=== PATIENT | female | born 1950 | race Caucasian/White ===

== ENCOUNTER → 2020-01-29 12:43 | Outpatient (CLI) | payer MEDICARE, OTHER, SELFPAY ==
--- NOTE | ~2020-01-29 | MM_ITS ---
EXAMINATION: MM screening rox RT w andrew HISTORY: Screening TECHNIQUE: Craniocaudal and mediolateral oblique 3-D tomosynthesis images were obtained and synthetic 2-D images were generated. CAD analysis was submitted and interpreted. COMPARISON: Comparison to multiple prior studies sequentially, with oldest reviewed study dated 10/2009. BREAST PARENCHYMAL COMPOSITION: There are scattered areas of fibroglandular density. FINDINGS: There is no evidence of suspicious mass, calcification, or architectural distortion to sugg est malignancy in the right breast. There has been no suspicious interval change. IMPRESSION: 1. No mammographic evidence of malignancy. 2. Recommend routine screening mammography in one year. BI-RADS Category 1: Negative Reviewed, dictated and finalized at location A.
== END ==
PROVIDERS: PCP Physician Assistant; Visit Provider Physician Assistant
DX: Z12.31 Encounter for screening mammogram for malignant neoplasm of breast (principal); Z85.3 Personal history of malignant neoplasm of breast
CPT/HCPCS: 77063; 77067

== ENCOUNTER → 2021-11-08 09:10 | Outpatient (CLI) | payer MEDICARE, OTHER, SELFPAY ==
--- NOTE | ~2021-11-08 | MMUS_ITS ---
EXAMINATION: MM diagnostic rox RT w andrew, US breast RT limited HISTORY: Breast pain TECHNIQUE: Full field and spot ML, MLO and craniocaudal 3-D tomosynthesis images of the right breast were performed and synthetic 2-D images were generated. CAD analysis was submitted and interpreted. H igh resolution upper outer and lower-outer quadrant right breast ultrasound was performed. COMPARISON: 01/29/2020, 10/16/2017 right screening mammogram examinations 09/14/2016 diagnostic right mammogram and limited right breast ultrasound BREAST PARENCHYMAL COMPOSITION: There are scattered areas of fibroglandular density. FINDINGS: MAMMOGRAPHIC FINDINGS: No interval suspicious mass, architectural distortion, malignant calcification, skin thickening or re traction or significant new or developing density of the right breast is evident compared to prior ex aminations. ULTRASOUND: No suspicious mass or shadowing from a mass lesion is noted. There is some ill-defined shadowing rela margarita to scars in the lower outer quadrant. IMPRESSION: 1. No mammographic evidence of malignancy 2. Routine annual mammographic screening is recommended BI-RADS Category 2: Benign finding(s). Reviewed, dictated and finalized at location A. IMPRESSION: 1. No mammographic evidence of malignancy 2. Routine annual mammographic screening is recommended BI-RADS Category 2: Benign finding(s).
== END ==
PROVIDERS: PCP Physician Assistant; Visit Provider Family Medicine
DX: N64.4 Mastodynia (principal)
CPT/HCPCS: 76642; 77061; 77065; G0279

== ENCOUNTER 2022-04-20 12:38 | Outpatient (CLI) | payer MEDICARE, OTHER, SELFPAY ==
--- NOTE | ~2022-04-20 | XR_ITS ---
XR knee LT min 4V 04/20/2022 13:09 Indication: Left knee pain Procedure: 4 views left knee Comparison: 04/02/2014 Findings: There is tricompartment osteoarthritis of the left knee, severe in the medial compartment. No acute fracture or traumatic malalignment. No significant joint effusion. Impression: 1: Advanced tricompartment osteoarthritis of the left knee, most severe in the medial compartment. Reviewed, dictated and finalized at location A. Impression: 1: Advanced tricompartment osteoarthritis of the left knee, most severe in the medial compartment.
== END 2022-04-20 12:39 | disposition home or self-care (01) ==
LOC: ANHIMG 12:44
PROVIDERS: PCP Orthopaedic Surgery; Visit Provider Physician Assistant Surgical
DX: M17.12 Unilateral primary osteoarthritis, left knee (principal)
CPT/HCPCS: 73564

== ENCOUNTER 2022-06-02 16:33 | Outpatient (CLI) | payer MEDICARE, OTHER, SELFPAY ==
--- NOTE | ~2022-06-02 | XR_ITS ---
EXAMINATION: XR chest 2V DATE: 06/02/2022 16:54 INDICATION: Acute upper respiratory tract infection TECHNIQUE: PA and lateral views of the chest were obtained. COMPARISON: Chest radiograph dated 10/27/2010 FINDINGS: Unchanged calcified nodule at the left lower lung zone consistent with old granulomatous disease. Mil d perihilar bronchial wall thickening on the lateral projection. No focal airspace opacities, pulmona ry edema, pleural effusion or pneumothorax. The cardiomediastinal silhouette is normal. Chronic appea ring mild anterior wedging of a few mid to lower thoracic vertebral bodies. IMPRESSION: 1. Mild perihilar bronchial wall thickening without focal airspace opacities which could be due to br onchitis or reactive airway disease/asthma. Reviewed, dictated and finalized at location A. STANT PROFESSOR OF DIETETICS IMPRESSION: 1. Mild perihilar bronchial wall thickening without focal airspace opacities wh ich could be due to bronchitis or reactive airway disease/asthma.
== END 2022-06-02 16:34 | disposition home or self-care (01) ==
PROVIDERS: PCP Physician Assistant; Visit Provider Physician Assistant
DX: J06.9 Acute upper respiratory infection, unspecified (principal)
CPT/HCPCS: 71046

== ENCOUNTER 2022-06-06 14:16 | Emergency (ER) | payer MEDICARE, OTHER, SELFPAY ==
[2022-06-06] VITALS (15 sets, daily range): BP systolic 86–130; BP diastolic 46–101; PULSE 73–98; RESP 13–29; TEMP 36.8; O2SAT 94–100
--- NOTE | ~2022-06-06 | XR_ITS ---
XR chest 2V DATE: 06/06/2022 17:28 INDICATION: Cough, shortness of breath. Asthma exacerbation. History of hypertension, mitral valve ab normality. TECHNIQUE: AP and lateral views COMPARISON: 06/02/2022 PA and lateral chest FINDINGS: There is evidence of partial or complete left mastectomy. Status post left axillary node di ssection. Normal heart size. Aortic arch calcification. No hilar or mediastinal enlargement. No pulmonary infiltrate or consolidation, pleural effusion or pulmonary vascular congestion or pneumo thorax. There is degenerative spurring primarily of the lower thoracic spine. There is chronic mild anterior wedging of some thoracic vertebral bodies. No suspicious osteolytic or osteoblastic lesions are noted . IMPRESSION: Postoperative change of left breast and left axillary node dissection No active cardiopulmonary disease Aortic calcification Reviewed, dictated and finalized at location A. POT WORKER IMPRESSION: Postoperative change of left breast and left axillary node dissecti on No active cardiopulmonary disease Aortic calcification
--- NOTE | 2022-06-06 17:12 | ED.SOB ---
HPI - SOB/Dyspnea General Chief Complaint: Shortness of Breath/Dyspnea Stated Complaint: cough/recent covid dx 05/12 Time Seen by Provider: 06/06/22 16:58 History of Present Illness HPI Narrative: 72-year-old female history of asthma, hypertension, diabetes and breast cancer presents to the emergency room for evaluation of worsening shortness of breath. Patient states that she was recently diagnosed with COVID at the end of April, and has been experiencing a nonproductive cough associated with wheezing. Was seen at her PCPs office on Sunday, and was a started on Breo inhaler and 40 mg of p.o. prednisone. Was again seen in her primary's office today, and given a breathing treatment and was told that she might have asthma exacerbation. Patient recently purchased a nebulizer machine and use it once today. States that she is also taking [id number] Robitussin. Endorses a painful cough. Denies fever. Denies chest pain Related Data Home Medications Medication Instructions Recorded Confirmed cetirizine 10 mg capsule (Zyrtec) 10 mg PO BID 04/18/22 04/20/22 diclofenac sodium 75 mg 75 mg PO .one 04/18/22 04/20/22 tablet,delayed release exenatide microspheres 2 mg/0.65 mg subcut .1 weekly 04/18/22 04/20/22 mL subcutaneous pen injector (ByEditorially) glipizide 10 mg tablet 10 mg PO DAILY 04/18/22 04/20/22 levothyroxine 75 mcg tablet 75 mcg PO DAILY 04/18/22 04/20/22 lorazepam 0.5 mg tablet 0.5 mg PO BID PRN 04/18/22 04/20/22 metformin 500 mg/5 mL oral solution 500 mg PO DAILY 04/18/22 04/20/22 valsartan 40 mg tablet (Diovan) 40 mg PO DAILY 04/18/22 04/20/22 Allergies Allergy/AdvReac Type Severity Reaction Status Date / Time empagliflozin Allergy Mild Difficulty Verified 04/20/22 14:04 [From Jardiance] Swallowing fluticasone furoate Allergy Mild face Verified 04/20/22 14:04 [From Veramyst] swelling lisinopril Allergy Mild Cough Verified 04/20/22 14:04 sulfamethoxazole Allergy Mild Rash Verified 04/20/22 14:04 codeine Allergy Unknown HALLUCINATI Unverified 04/20/22 14:04 ONS erythromycin base Allergy Unknown CHEST PAIN. Unverified 04/20/22 14:04 Penicillins Allergy Unknown RASH Unverified 04/20/22 14:04 junivia Allergy Mild Difficulty Uncoded 04/20/22 14:04 Swallowing NKFA Allergy Unknown Unknown Uncoded 04/20/22 14:04 Review of Systems Review of Systems: CONSTITUTIONAL: Denies fever, chills, or sweats. EYES: Denies visual changes, redness, or discharge. ENT: Reports rhinorrhea, and congestion CARDIOVASCULAR: Denies chest pain, palpitations, or edema. RESPIRATORY: Reports cough and wheezing GASTROINTESTINAL: Denies abdominal pain, nausea, vomiting, or diarrhea. GENITOURINARY: Denies dysuria or hematuria. SKIN: Denies rash or itching. MUSCULOSKELETAL: Denies back pain, joint pain, or myalgia. NEUROLOGIC: Denies headache, numbness, dizziness, or weakness. PSYCHIATRIC: Denies anxiety or depression. [facility] Past Medical History Medical History Bleeds easily Breast cancer Diabetes Eczema Fatigue History of stress test Hypertension Lymphedema due to chronic inflammation Mitral valve disorder Neck mass Primary osteoarthritis of left knee Shortness of breath Surgical History Surgical History History of mastectomy History of partial hysterectomy History of tooth extraction Family History Family History Father Cancer Mother Heart disease Sibling Heart disease Sibling Breast cancer Heart disease Social History Social History Smoking status: Never smoker Alcohol intake: never Substance use: never Lack of Transportation: No Lack of Food: Never True Current Housing: I Have Housing Concerned About Future Housing: No Difficulty Paying Gas/Electric Bills: No Di
--- NOTE | 2022-06-06 17:14 | ECG_ITS ---
Measurements Intervals [place] Rate: 82 P: 44 [place]: 119 QRS: 19 QRSD: 101 T: 44 QT: 398 QTc: 466 Interpretive Statements SINUS RHYTHM WITH SHORT [place] INTERVAL WITH FREQUENT VENTRICULAR PREMATURE COMPLEXES NONSPECIFIC T-WAVE ABNORMALITY ABNORMAL RHYTHM ECG NO PREVIOUS ECG AVAILABLE FOR COMPARISON Electronically Signed On 06-07-2022 17:48:35 DELIVERY ENGINEER by Darrick Doherty M.D.
[2022-06-06 18:22] LABS: Basophils Absolute Auto 0.1 K/mm3 (0.0-0.1); Basophils Percent Auto 0.4 % (0.2-1.2); Eosinophils Absolute Auto 0.2 K/mm3 (0-0.3); Eosinophils Percent Auto 1.2 % (0-4.4); Hematocrit 42.8 % (37.0-47.0); Hemoglobin 13.7 g/dL (12.0-15.0); Immature Granulocyte Percent A 1.1 % (0-0.5); Lymphocytes Absolute Auto 3.46 K/mm3 (0.9-3.2); Lymphocytes Percent Auto 19.2 % (18.3-44.2); Mean Corpuscular Hemoglobin 31.2 pg (26-34); Mean Corpuscular Volume 97.5 fl (80-100); Mean Platelet Volume 10.5 fl (7.4-10.4); Monocytes Absolute Auto 1.3 K/mm3 (0.1-0.6); Monocytes Percent Auto 7.1 % (2.6-8.5); Neutrophils Absolute Auto 12.8 K/mm3 (1.3-6.7); Platelet Count Result 345 k/mm3 (150-375); Red Blood Count 4.39 M/mm3 (4.2-5.4); Red Cell Distribution Width 12.8 % (11.5-14.5)
[2022-06-06] MEDS: methylPREDNISolone SOD SUCC 125 MG VIAL IV PUSH (18:24)
[2022-06-06 18:29] LABS: Lactic Acid Reflex 2.1 mmol/L (0.7-2.0)
[2022-06-06 18:36] LABS: Influenza A QL RT-PCR Negative (Negative); Influenza B QL RT-PCR Negative (Negative); RSV RNA, RT-PCR Positive (Negative); SARS-CoV-2 RNA PCR Negative
[2022-06-06 18:43] LABS: Anion Gap 11 mmol/L (8-16); Blood Urea Nitrogen 33 mg/dL (7-17); Calcium 9.1 mg/dL (8.4-10.2); Carbon Dioxide 25 mmol/L (22-30); Chloride 98 mmol/L (98-107); Estimated CRCL calculation 38 ml/min; Estimated Glomerular Filt Rate 40; Glucose 136 mg/dL (65-110); Potassium 3.6 mmol/L (3.4-5.0); Sodium 134 mmol/L (137-145)
[2022-06-06] MEDS: SODIUM CHLORIDE 0.9% IV 1,000 ML 999 ML IV CONT (18:51)
[2022-06-06 18:55] LABS: Troponin I < 0.012 ng/mL (0.000-0.034)
[2022-06-06] MEDS: MAGNESIUM SULF 2 GM/WATER 50ML 2 GM/50 ML BAG IVPB (19:30)
[2022-06-06] MEDS: ALBUTEROL SULFATE NEB 2.5 MG/3 ML INH 5 MG INHALATION ×2 (19:35→19:44)
[2022-06-06] MEDS: ALBUTEROL SULFATE NEB 2.5 MG/3 ML INH 10 MG INHALATION (19:54)
[2022-06-06] MEDS: IPRATROPIUM BR 0.02% INH SOLN 0.5 MG/2.5 ML VIAL 1 MG INHALATION (19:54)
[2022-06-06 21:18] LABS: Reflex Lactic Acid Yes or No Add Lactic
== END 2022-06-06 21:15 | disposition home or self-care (01) ==
PROVIDERS: Emergency Provider Nurse Practitioner Family; PCP Physician Assistant
DX: J21.0 Acute bronchiolitis due to respiratory syncytial virus (principal); J45.901 Unspecified asthma with (acute) exacerbation; Z20.822 Contact with and (suspected) exposure to COVID-19; I10 Essential (primary) hypertension; E11.9 Type 2 diabetes mellitus without complications; M17.12 Unilateral primary osteoarthritis, left knee; I89.0 Lymphedema, not elsewhere classified; Z86.16 Personal history of COVID-19; Z85.3 Personal history of malignant neoplasm of breast; Z90.10 Acquired absence of unspecified breast and nipple; Z90.711 Acquired absence of uterus with remaining cervical stump; Z79.84 Long term (current) use of oral hypoglycemic drugs; I49.3 Ventricular premature depolarization; R94.31 Abnormal electrocardiogram [ECG] [EKG]; I70.0 Atherosclerosis of aorta
CPT/HCPCS: 36415; 71046; 80048; 83605; 84484; 85025; 87637; 93005; 94640; 96361; 96365; 96375; 99284; J2930; J3475; J7030

== ENCOUNTER 2022-07-25 17:38 | Outpatient (CLI) | payer MEDICARE, OTHER, SELFPAY ==
--- NOTE | ~2022-07-25 | XR_ITS ---
EXAMINATION: XR chest 2V DATE: 07/25/2022 17:57 INDICATION: Cough and wheezing post COVID infection 3 months prior. TECHNIQUE: PA and lateral views of the chest were obtained. COMPARISON: Chest radiograph dated 06/06/22 FINDINGS: Small calcified nodules at the left apex and left lung base and calcified left hilar lymph nodes cons istent with old granulomatous disease. Postoperative change of prior left mastectomy and left axillar y lymph node dissection with breast implant and multiple surgical clips at the left axilla. The cardi omediastinal silhouette is normal. Mild thoracic spondylosis with mild anterior wedging of a few lowe r thoracic vertebral bodies. IMPRESSION: 1. No acute cardiopulmonary disease. Reviewed, dictated and finalized at location A. ERTY COORDINATOR
== END 2022-07-25 17:39 | disposition home or self-care (01) ==
PROVIDERS: PCP Physician Assistant; Visit Provider Physician Assistant
DX: R06.2 Wheezing (principal)
CPT/HCPCS: 71046

== ENCOUNTER 2022-08-22 10:39 | Inpatient (IN) | payer MEDICARE, OTHER, SELFPAY ==
[2022-08-22] VITALS (22 sets, daily range): BP systolic 135–147; BP diastolic 59–110; PULSE 70–100; RESP 15–23; TEMP 35.9–36.3; O2SAT 92–100; BMI 34.5
--- NOTE | ~2022-08-22 | CT_ITS ---
EXAMINATION: CTA chest PE protocol DATE: 08/22/2022 14:21 INDICATION: Shortness of breath. Elevated d-dimer. TECHNIQUE: Computed tomography angiography (CTA) of the chest was performed with 200 mL Omnipaque-350 intravenous contrast timed to evaluate the pulmonary arteries. Coronal maximum intensity projection 3D-reconstructions were created by the technologist. Automated exposure control and iterative reconst ruction technique were employed. Exam dose: 748.77 mGy-cm total exam DLP. COMPARISON: 08/22/2022 PA and lateral chest FINDINGS: There is diagnostic contrast enhancement of the pulmonary arteries on the second set of mo ges obtained after reinjection. No pulmonary embolism is detected. No thoracic aortic aneurysm or dissection. Normal heart size. No pericardial or pleural effusion. Calcified left upper and lower lobe and middle lobe pulmonary granulomas and calcified left hilar nod es are noted. There is nonspecific mild hilar and mediastinal lymph node prominence. Small posterior left upper posterior pleural calcified plaque. Status post left mastectomy with implant reconstruction. Status post left axillary lymph node dissect ion. There are couple of small calcifications along the posterior wall of the gallbladder which may be gal lbladder wall calcification or small gallstones. No gallbladder wall thickening or pericholecystic fl uid or fat stranding. Diffuse hepatic steatosis. Normal morphology of the adrenal glands. Mild anterior wedging and loss of height of T7-T10, likely chronic. Degenerative spurring of the lowe r thoracic spine. IMPRESSION: No evidence of pulmonary embolism Status post left mastectomy with implant reconstruction; status post left axillary node dissection Hepatic steatosis Posterior gallbladder wall calcification versus small gallstones Reviewed, dictated and finalized at Location A. Reviewed, dictated and finalized at location L. MAIN FITTER IMPRESSION: No evidence of pulmonary embolism Status post left mastectomy with implant reconstruction; status post left axill nadia node dissection Hepatic steatosis Posterior gallbladder wall calcification versus small gallstones
--- NOTE | ~2022-08-22 | US_ITS ---
EXAMINATION: US venous doppler [facility] DATE: 08/22/2022 12:36 INDICATION: Lower limb edema. TECHNIQUE: Grayscale ultrasound images without and with compression and Doppler ultrasound images of the bilateral lower extremity veins were obtained. COMPARISON: None. FINDINGS: The visualized portions of right common femoral vein, profunda (deep) femoral vein, femoral vein, pop liteal vein, peroneal veins, posterior tibial veins, and greater saphenous vein outflow are patent. The visualized portions of left common femoral vein, profunda femoral vein, femoral vein, popliteal v ein, peroneal veins, posterior tibial veins, and greater saphenous vein outflow are patent. IMPRESSION: 1. No deep venous thrombosis. Reviewed, dictated and finalized at location A. IGN EXCHANGE DEALER
--- NOTE | ~2022-08-22 | XR_ITS ---
XR chest 2V DATE: 08/22/2022 11:07 INDICATION: Shortness of breath since April 2022. Cough. TECHNIQUE: PA and lateral views COMPARISON: July 25, 2022 PA and lateral chest FINDINGS: Postoperative change from left mastectomy and left axillary node dissection. No pulmonary infiltrate or consolidation, pleural effusion or pulmonary vascular congestion or pneumo thorax is detected. Normal heart size. Aortic arch calcification. Osteopenia. There is degenerative spurring of the thoracic spine. No suspicious osteolytic or osteobl astic lesions are noted. IMPRESSION: Status post left mastectomy and left axillary node dissection No active cardiopulmonary disease Aortic atherosclerosis Osteopenia. Reviewed, dictated and finalized at location L. BILITATION INSPECTOR
--- NOTE | 2022-08-22 10:46 | ECG_ITS ---
Measurements Intervals [place] Rate: 90 P: 50 [place]: 129 QRS: 43 QRSD: 99 T: 55 QT: 383 QTc: 470 Interpretive Statements SINUS RHYTHM BASELINE ARTIFACT- I, II, III, AVR, AVL, AVF, V1-V6 NORMAL ECG COMPARED TO ECG 06/06/2022 17:52:23 NO SIGNIFICANT CHANGES Electronically Signed On 08-22-2022 13:14:04 RESIDENTIAL CONSTRUCTION INSTRUCTOR by Emery Carr D.O.
[2022-08-22 11:04] LABS: Basophils Absolute Auto 0.1 K/mm3 (0.0-0.1); Basophils Percent Auto 0.8 % (0.2-1.2); Eosinophils Absolute Auto 0.9 K/mm3 (0-0.3); Eosinophils Percent Auto 8.6 % (0-4.4); Hematocrit 37.9 % (37.0-47.0); Hemoglobin 11.9 g/dL (12.0-15.0); Immature Granulocyte Absolute 0.06 K/mm3 (0.00-0.031); Immature Granulocyte Percent A 0.6 % (0-0.5); Lymphocytes Absolute Auto 1.64 K/mm3 (0.9-3.2); Lymphocytes Percent Auto 15.4 % (18.3-44.2); Mean Corpuscular HGB Conc 31.4 g/dl (32-36); Mean Corpuscular Hemoglobin 31.6 pg (26-34); Mean Corpuscular Volume 100.5 fl (80-100); Monocytes Absolute Auto 0.8 K/mm3 (0.1-0.6); Monocytes Percent Auto 7.3 % (2.6-8.5); Neutrophils Absolute Auto 7.2 K/mm3 (1.3-6.7); Neutrophils Percent Auto 67.3 % (45.5-73.1); Platelet Count Result 296 k/mm3 (150-375); Red Blood Count 3.77 M/mm3 (4.2-5.4); Red Cell Distribution Width 13.1 % (11.5-14.5); White Blood Count 10.7 K/mm3 (4.5-10.0)
[2022-08-22 11:11] LABS: Alanine Aminotransferase 24 U/L (6-35); Albumin Level 4.1 g/dL (3.5-5.1); Alkaline Phosphatase 85 U/L (38-126); Anion Gap 7 mmol/L (8-16); Aspartate Amino Transferase 22 U/L (14-36); Bilirubin,Total 0.6 mg/dL (0.2-1.3); Blood Urea Nitrogen 16 mg/dL (7-17); Calcium 9.1 mg/dL (8.4-10.2); Carbon Dioxide 24 mmol/L (22-30); Chloride 102 mmol/L (98-107); Estimated CRCL calculation 57 ml/min; Estimated Glomerular Filt Rate > 60; Glucose 270 mg/dL (65-110); Potassium 4.3 mmol/L (3.4-5.0); Sodium 133 mmol/L (137-145)
[2022-08-22 11:48] LABS: NT Pro B Type Natriuretic Pept 170 pg/mL (19.9-100)
[2022-08-22 11:50] LABS: Prothrombin Time 12.5 Seconds (11.1-14.7)
[2022-08-22 11:55] LABS: D Dimer 0.86 ug/mL (<0.48)
--- NOTE | 2022-08-22 12:46 | ED.SOB ---
HPI - SOB/Dyspnea General Chief Complaint: Shortness of Breath/Dyspnea <Ines Wakefield PA-C - Last Filed: 08/22/22 15:25> Stated Complaint: SOB <KONSTANTIN Pradhan Last Filed: 08/22/22 15:25> Time Seen by Provider: 08/22/22 11:15 <KONSTANTIN Pradhan Last Filed: 08/22/22 15:25> Source: patient <KONSTANTIN Pradhan Last Filed: 08/22/22 15:25> Mode of arrival: ambulatory <KONSTANTIN Pradhan Last Filed: 08/22/22 15:25> Limitations: no limitations <KONSTANTIN Pradhan Last Filed: 08/22/22 15:25> History of Present Illness HPI Narrative: This is a 72 year old female that presents to the ER for shortness of breath and wheezing. Ongoing for several months. Reports since she had RSV and COVID at the end of last year she has been having difficulty with wheezing. <KONSTANTIN Pradhan Last Filed: 08/22/22 15:25> Related Data Home Medications: Home Medications Medication Instructions Recorded Confirmed acetaminophen 500 mg capsule 1,000 mg PO BID PRN 07/25/22 08/22/22 clobetasol 0.05 % topical ointment 1 applic topical BID 07/25/22 08/22/22 lorazepam 0.5 mg tablet 0.5 mg PO Q8H PRN 07/25/22 08/22/22 metformin 500 mg tablet,extended 500 mg PO BID 07/25/22 08/22/22 release 24 hr tacrolimus 0.1 % topical ointment 1 applic topical DAILY 07/25/22 08/22/22 (Protopic) <KONSTANTIN Pradhan Last Filed: 08/22/22 15:25> Allergies/Adverse Reactions: Allergies Allergy/AdvReac Type Severity Reaction Status Date / Time empagliflozin Allergy Mild Difficulty Verified 08/22/22 10:12 [From Jardiance] Swallowing fluticasone furoate Allergy Mild face Verified 08/22/22 10:12 [From Veramyst] swelling lisinopril Allergy Mild Cough Verified 08/22/22 10:12 sitagliptin [From Januvia] Allergy Mild Difficulty Verified 08/22/22 14:57 Swallowing sulfamethoxazole Allergy Mild Rash Verified 08/22/22 10:12 codeine Allergy Unknown HALLUCINATI Verified 08/22/22 10:12 ONS erythromycin base Allergy Unknown CHEST PAIN. Verified 08/22/22 10:12 Penicillins Allergy Unknown RASH Verified 08/22/22 10:12 NKFA Allergy Unknown Unknown Uncoded 08/22/22 10:12 <Ines Wakefield PA-C - Last Filed: 08/22/22 15:25> [facility] Past Medical History Medical History: Medical History Allergic rhinitis Anxiety Asthma Bilateral knee pain Depression Diabetes Eczema Hyperlipidemia Hypertension Hypothyroidism Lymphedema due to chronic inflammation Mitral valve disorder Overactive bladder <KONSTANTIN Pradhan Last Filed: 08/22/22 15:25> Surgical History Surgical History: Surgical History (Updated 08/22/22 @ 16:24 by Danyelle Cortés NP) H/O tubal ligation 1970s History of mastectomy left 2000 History of partial hysterectomy 1970s History of tonsillectomy and adenoidectomy Hx of breast biopsy right 01/16/2005 Hx of external ear surgery removal of growth 1980s <KONSTANTIN Pradhan Last Filed: 08/22/22 15:25> Family History Family History: Family History Father Cancer Mother Heart disease Sibling Heart disease Sibling Breast cancer Heart disease <Ines Wakefield PA-C - Last Filed: 08/22/22 15:25> Social History Social History: Social History (Updated 08/22/22 @ 16:25 by Danyelle Cortés NP) Social History: . 3 children and 3 step . retire [employer] code status: full code Smoking status: Never smoker Second hand tobacco smoke exposure: No Alcohol intake: never Substance use: never Substance use type: does not use Lack of Transportation: No Lack of Food: Never True Current Housing: I Have Housing Concerned About Future Housing: No Difficulty Paying Gas/Electric Bills: No Difficulty Paying for Meds: No Currently Unemployed: No Education: High School Diploma/GED Di
[2022-08-22] MEDS: ALBUTEROL SULFATE NEB 2.5 MG/3 ML INH 15 MG INHALATION (12:53)
[2022-08-22] MEDS: IPRATROPIUM BR 0.02% INH SOLN 0.5 MG/2.5 ML VIAL 1.5 MG INHALATION (12:53)
[2022-08-22 13:52] LABS: Influenza A QL RT-PCR Negative (Negative); Influenza B QL RT-PCR Negative (Negative); SARS-CoV-2 RNA PCR Negative
[2022-08-22] MEDS: methylPREDNISolone SOD SUCC 125 MG VIAL IV PUSH (15:10)
[2022-08-22] MEDS: ACETAMINOPHEN 500 MG TABLET 1000 MG PO (15:23)
[2022-08-22 15:48] LABS: Magnesium 1.7 mg/dL (1.6-2.3)
--- NOTE | 2022-08-22 16:22 | PM.IMHP ---
H&P: HPI History of Present Illness Date/Time: 08/22/22 16:22 Chief Complaint: Shortness of breath Narrative: This is a 72-year-old female patient who came to the emergency room complaining of shortness breath and wheezing. She has a history of diabetes. The patient has had a history of RSV and COVID within the last 12 months. She has been having difficulty breathing and having some wheezing. White count is 10.7. Her blood sugar is 270. Magnesium is 1.7. BMP 170. Influenza A/B and COVID are negative. Chest CTA No evidence of pulmonary embolism Status post left mastectomy with implant reconstruction; status post left axillary node dissection Hepatic steatosis Posterior gallbladder wall calcification versus small gallstones Venous Dopplers no venous thrombus. The patient does have 2+ pitting edema. The patient was given a nebulizer treatment, magnesium Tylenol on Solu-Medrol. She has a history of asthma. the patient is being admitted to observation status on the date of service of 08/22/2022. Review of Systems Review of Systems: See HPI All systems reviewed & are unremarkable except as noted in HPI and below Constitutional: Constitutional: Reports as per HPI and Reports no additional constitutional complaints Eyes: Eyes: Reports as per HPI and Reports no additional eye complaints ENT: Reports system reviewed and no additional complaints, except as documented and Reports Normal hearing present Cardiovascular: Cardiovascular: Reports no additional cardiovascular complaints Respiratory: Respiratory: Reports no additional respiratory complaints and Reports no additional respiratory complaints Gastrointestinal: Gastrointestinal: Reports as per HPI and Reports no additional gastrointestinal complaints Musculoskeletal: Musculoskeletal: Reports no additional musculoskeletal complaints Integumentary/Breasts: Skin/Breast: Reports system reviewed and no additional complaints, except as docu and Reports as per HPI Neurologic: Reports system reviewed and no additional complaints, except as documented, Reports as per HPI and Reports Normal hearing present Psychiatric: Psychiatric: Reports no additional psychiatric complaints and Reports as per HPI Endocrine: Endocrine: Reports no additional endocrine complaints Hematologic/Lymphatic: Hematologic/Lymphatic: Reports no additional hematologic/lymphatic complaints Allergic/Immunologic: Allergic/Immunologic: Reports no additional allergic/immunologic complaints [facility] Past Medical History Medical History (Updated 08/22/22 @ 22:59 by Danyelle Cortés NP) Allergic rhinitis Anxiety Asthma Bilateral knee pain Depression Diabetes Eczema Hyperlipidemia Hypertension Hypothyroidism Lymphedema due to chronic inflammation Mitral valve disorder Overactive bladder Surgical History Surgical History H/O tubal ligation 1970s History of mastectomy left 2001 History of partial hysterectomy 1970s History of tonsillectomy and adenoidectomy Hx of breast biopsy right 01/16/2005 Hx of external ear surgery removal of growth 1980s Family History Family History Father Cancer Mother Heart disease Sibling Heart disease Sibling Breast cancer Heart disease Social History Social History (Updated 08/22/22 @ 20:10 by Danyelle Cortés NP) Social History: She lives with her . She has 3 biologic children and 3 step children. She is retired from [email or web address]. She never smoked. code status: full code Smoking status: Never smoker Second hand tobacco smoke exposure: No Alcohol intake: never Substance use: never Substance use type: does not use Lack of Transportation: No Lack of Food: Never True Current Housing: I Have Housing Concerned About Future Housing: No Difficulty Paying Gas/Electric Bills: No Difficulty Paying for Meds: No Cur
--- NOTE | 2022-08-22 18:03 | ADMGEN ---
This patient, Bran Sage, was admitted to Medical Room 248-. Patient/family oriented to hospital policies and general routines including ID bracelet, bed and alarms, visiting hours, pain management, procedures, bathroom and other care routines, personal items, smoking policy, room service/diet, and visiting hours. Information on how to activate the Rapid Response Team has been discussed. Patient/Family are encouraged to report perceived risks to care and to ask questions if they do not understand what they are told or what they should do.
[2022-08-22] MEDS: MAGNESIUM SULF 2 GM/WATER 50ML 2 GM/50 ML BAG IVPB (18:46)
[2022-08-22] MEDS: ALBUTEROL SULFATE NEB 2.5 MG/3 ML INH INHALATION (19:39)
[2022-08-22] MEDS: IPRATROPIUM BR 0.02% INH SOLN 0.5 MG/2.5 ML VIAL INHALATION (19:39)
[2022-08-22 21:10] LABS: Glucose Point of Care 443 mg/dl (65-105)
[2022-08-22] MEDS: INSULIN ASPART (*BKC) 100 UNITS/ML 10 UNITS SUB-Q (21:20)
[2022-08-22] MEDS: methylPREDNISolone SOD SUCC 125 MG VIAL 60 MG IV PUSH (21:25)
[2022-08-23] VITALS (11 sets, daily range): BP systolic 117–151; BP diastolic 61–92; PULSE 79–101; RESP 14–22; TEMP 36.2–36.9; O2SAT 94–96
[2022-08-23] MEDS: methylPREDNISolone SOD SUCC 125 MG VIAL 60 MG IV PUSH ×5 (00:45→23:41)
[2022-08-23] MEDS: IPRATROPIUM BR 0.02% INH SOLN 0.5 MG/2.5 ML VIAL INHALATION ×4 (02:15→21:08)
[2022-08-23] MEDS: ALBUTEROL SULFATE NEB 2.5 MG/3 ML INH INHALATION ×4 (02:15→21:08)
[2022-08-23] MEDS: LEVOTHYROXINE SODIUM 75 MCG TABLET PO (06:21)
[2022-08-23 06:22] LABS: Basophils Percent Auto 0.1 % (0.2-1.2); Hematocrit 34.6 % (37.0-47.0); Hemoglobin 10.8 g/dL (12.0-15.0); Immature Granulocyte Absolute 0.11 K/mm3 (0.00-0.031); Immature Granulocyte Percent A 0.8 % (0-0.5); Lymphocytes Absolute Auto 0.85 K/mm3 (0.9-3.2); Lymphocytes Percent Auto 6.2 % (18.3-44.2); Mean Corpuscular HGB Conc 31.2 g/dl (32-36); Mean Corpuscular Hemoglobin 31.7 pg (26-34); Mean Corpuscular Volume 101.5 fl (80-100); Mean Platelet Volume 11.3 fl (7.4-10.4); Monocytes Absolute Auto 0.1 K/mm3 (0.1-0.6); Neutrophils Absolute Auto 12.6 K/mm3 (1.3-6.7); Neutrophils Percent Auto 91.9 % (45.5-73.1); Platelet Count Result 273 k/mm3 (150-375); Red Blood Count 3.41 M/mm3 (4.2-5.4); Red Cell Distribution Width 12.8 % (11.5-14.5); White Blood Count 13.7 K/mm3 (4.5-10.0)
[2022-08-23 06:35] LABS: Alanine Aminotransferase 26 U/L (6-35); Albumin Level 3.7 g/dL (3.5-5.1); Alkaline Phosphatase 75 U/L (38-126); Anion Gap 11 mmol/L (8-16); Aspartate Amino Transferase 22 U/L (14-36); Bilirubin,Total 0.5 mg/dL (0.2-1.3); Blood Urea Nitrogen 19 mg/dL (7-17); Calcium 8.6 mg/dL (8.4-10.2); Carbon Dioxide 20 mmol/L (22-30); Chloride 101 mmol/L (98-107); Estimated CRCL calculation 55 ml/min; Estimated Glomerular Filt Rate > 60; Glucose 451 mg/dL (65-110); Lactate Dehydrogenase 176 U/L (120-246); Magnesium 2.2 mg/dL (1.6-2.3); Phosphorus 4.4 mg/dL (2.5-4.5); Potassium 4.4 mmol/L (3.4-5.0); Sodium 132 mmol/L (137-145)
[2022-08-23 07:43] LABS: Thyroid Stimulating Hormone Reflex 0.826 uIU/mL (0.465-4.68)
[2022-08-23 08:14] LABS: Glucose Point of Care 458 mg/dl (65-105)
[2022-08-23] MEDS: ENOXAPARIN 40 MG/0.4 ML SYRINGE SUB-Q (08:25)
[2022-08-23] MEDS: DICLOFENAC SOD 75 MG TABLET.EC PO ×2 (08:26→17:39)
[2022-08-23] MEDS: TRIAMTERENE 37.5 MG/HCTZ 25 MG (MAXZIDE) TABLET 1 TAB PO (08:27)
[2022-08-23] MEDS: VALSARTAN 40 MG TABLET PO (08:27)
[2022-08-23] MEDS: glipiZIDE 5 MG TABLET 10 MG PO (08:27)
[2022-08-23] MEDS: LORATADINE 10 MG TABLET PO (08:28)
[2022-08-23] MEDS: INSULIN GLARGINE (*BKC) 100 UNITS/ML 20 UNITS SUB-Q (08:42)
[2022-08-23] MEDS: INSULIN ASPART (*BKC) 100 UNITS/ML SUB-Q ×3 (09:09→17:40)
[2022-08-23] MEDS: INSULIN ASPART (*BKC) 100 UNITS/ML 6 UNITS SUB-Q (09:09)
[2022-08-23] MEDS: BENZONATATE 100 MG CAPSULE PO (09:12)
[2022-08-23 12:02] LABS: Glucose Point of Care 415 mg/dl (65-105)
--- NOTE | 2022-08-23 12:11 | PM.IMPN ---
Progress Note: A&P Assessment and Plan (1) Asthma: Code(s): J45.909 - Unspecified asthma, uncomplicated Status: Acute Assessment and Plan: The patient was given magnesium in the emergency room. The patient is currently on room air. The patient stated that she has been wheezing a recent she was diagnosed with COVID and RSV within the last 12 months. Continue with Solu-Medrol however the patient is diabetic will have to monitor her blood sugars closely. Continue with albuterol nebulizers. Continue with Atrovent CTA was negative for pulmonary emboli. Continue with Claritin (2) Hypertension: Code(s): I10 - Essential (primary) hypertension Status: Acute Assessment and Plan: Continue with triamterene with hydrochlorothiazide if formulary. P.r.n. hydralazine Valsartan (3) Diabetes: Code(s): E11.9 - Type 2 diabetes mellitus without complications Status: Acute Assessment and Plan: Accu-Cheks AC and HS Sliding scale insulin With diabetic diet Hypoglycemic protocol Check A1c Hold metformin Continue with glipizide Subjective Date/time seen: 08/23/22 12:11 No new complaints, still wheezing. Exam Const: General: cooperative, healthy appearing, comfortable, no acute distress, well developed, awake, Physically active, average body habitus and well nourished Nutritional Appearance: average body habitus and well nourished Orientation/consciousness: oriented to person, oriented to place, oriented to time and patient oriented x3 Limitations: no limitations HENMT: Head: normal to inspection, No palpable skull fracture present, normocephalic, atraumatic and abrasion Ears: hearing grossly normal bilaterally, external ears normal and TM's normal bilaterally Face/Nose/Sinus: Normal external nose present, Normal nares present and No nasal polyps present Mouth: Yes Normal oral and palatal mucosa present Throat: posterior oropharynx normal Eyes: General: appearance normal, both eyes and all related structures Alignment and Position: alignment normal Periorbital: periorbital findings normal Eyelids: eyelids normal Conjunctivae: conjunctivae normal Sclera: sclerae normal Cornea: corneas normal Pupils: Equal, round and reactive pupils present and Pupil accommodation reflex normal EOM: EOMs intact bilaterally Neck: Neck: normal visual inspection, full ROM, no lymphadenopathy, trachea midline and supple Thyroid: thyroid normal Carotids: normal carotid upstroke Lymphatic: no lymphadenopathy noted Chest: Chest palpation & inspection: normal inspection of the chest Resp: Effort & Inspection: normal respiratory effort Auscultation: clear to auscultation bilaterally and wheezes expiratory wheezes and lower bilaterally Percussion: percussion normal Cardio: Palpation: normal PMI Rate: regular rate Rhythm: regular rhythm Heart sounds: S1 normal heart sound present and S2 normal heart sound present Peripheral pulses: Peripheral pulses 2+ throughout GI: Inspection: normal to inspection Auscultation: normal bowel sounds Rectal Exam: deferred : General: Yes no CVA tenderness Back/Spine/Pelvis: Back: no CVA tenderness Cervical Spine: cervical ROM normal Thoracic/Lumbar Spine: thoracic and lumbar spine normal to inspection Pelvis: no pain with anterior-posterior compression Skin: General skin exam: normal color Lesions: no lesions Rashes: no rashes Trauma: no lacerations or abrasions Wounds: no wounds Hair: normal Nails: normal Neuro: General: oriented to person, oriented to place, oriented to time and patient oriented x3 Cranial nerves: Yes Equal, round and reactive pupils present and Yes Normal hearing present Cognition (Neuro): normal cognition Speech: normal speech Gait exam (Neuro): Normal gait present Motor exam (neuro): 5/5 motor strength present throughout Sensory Exam: normal sensation Extrem: General: normal to inspection Right upper extremity: normal to inspection and
[2022-08-23] MEDS: INSULIN ASPART (*BKC) 100 UNITS/ML 9 UNITS SUB-Q (12:57)
[2022-08-23 17:12] LABS: Glucose Point of Care 322 mg/dl (65-105)
[2022-08-23 20:36] LABS: Glucose Point of Care 331 mg/dl (65-105)
[2022-08-23] MEDS: INSULIN GLARGINE (*BKC) 100 UNITS/ML 10 UNITS SUB-Q (21:04)
[2022-08-23] MEDS: INSULIN ASPART (*BKC) 100 UNITS/ML 8 UNITS SUB-Q (21:05)
[2022-08-23] MEDS: BENZOCAINE/MENTHOL (*BKC) 18 EA LOZENGE 1 LOZENGE PO (22:05)
[2022-08-23 22:08] LABS: Glucose Point of Care 285 mg/dl (65-105)
[2022-08-23 23:18] LABS: Hemoglobin A1C 11.1 % (<5.7)
[2022-08-24 02:45] VITALS: PULSE 80; RESP 16
[2022-08-24] MEDS: ALBUTEROL SULFATE NEB 2.5 MG/3 ML INH INHALATION ×2 (02:49→09:19)
[2022-08-24] MEDS: IPRATROPIUM BR 0.02% INH SOLN 0.5 MG/2.5 ML VIAL INHALATION ×2 (02:49→09:19)
[2022-08-24 02:58] VITALS: PULSE 78; RESP 18
[2022-08-24 06:00] VITALS: BP 131/51; PULSE 74; RESP 18; TEMP 36.5; O2SAT 92
[2022-08-24] MEDS: methylPREDNISolone SOD SUCC 125 MG VIAL 60 MG IV PUSH (06:28)
[2022-08-24] MEDS: LEVOTHYROXINE SODIUM 75 MCG TABLET PO (06:59)
[2022-08-24 08:49] LABS: Glucose Point of Care 367 mg/dl (65-105)
[2022-08-24] MEDS: INSULIN GLARGINE (*BKC) 100 UNITS/ML 20 UNITS SUB-Q (09:03)
[2022-08-24] MEDS: INSULIN ASPART (*BKC) 100 UNITS/ML SUB-Q (09:03)
[2022-08-24] MEDS: TRIAMTERENE 37.5 MG/HCTZ 25 MG (MAXZIDE) TABLET 1 TAB PO (09:06)
[2022-08-24] MEDS: LORATADINE 10 MG TABLET PO (09:06)
[2022-08-24] MEDS: VALSARTAN 40 MG TABLET PO (09:06)
[2022-08-24] MEDS: DICLOFENAC SOD 75 MG TABLET.EC PO (09:07)
[2022-08-24] MEDS: ENOXAPARIN 40 MG/0.4 ML SYRINGE SUB-Q (09:07)
[2022-08-24 09:19] VITALS: PULSE 74; RESP 18; O2SAT 95
[2022-08-24 09:28] VITALS: PULSE 76; RESP 18
[2022-08-24 09:58] VITALS: BP 142/54; PULSE 91; TEMP 36.2; O2SAT 98
[2022-08-24] MEDS: glipiZIDE 5 MG TABLET 10 MG PO (10:26)
--- NOTE | 2022-08-24 11:55 | PM.DS ---
DS: Admitting Diagnosis Discharge Date August 24, 2022 Admitting Diagnosis bronchiolitis DS: Discharge Diagnosis Discharge Diagnosis (1) Asthma: Code(s): J45.909 - Unspecified asthma, uncomplicated Status: Acute Assessment and Plan: The patient was given magnesium in the emergency room. The patient is currently on room air. The patient stated that she has been wheezing a recent she was diagnosed with COVID and RSV within the last 12 months. Continue with Solu-Medrol however the patient is diabetic will have to monitor her blood sugars closely. Continue with albuterol nebulizers. Continue with Atrovent CTA was negative for pulmonary emboli. Continue with Claritin (2) Hypertension: Code(s): I10 - Essential (primary) hypertension Status: Acute Assessment and Plan: Continue with triamterene with hydrochlorothiazide if formulary. P.r.n. hydralazine Valsartan (3) Diabetes: Code(s): E11.9 - Type 2 diabetes mellitus without complications Status: Acute Assessment and Plan: Accu-Cheks AC and HS Sliding scale insulin With diabetic diet Hypoglycemic protocol Check A1c Hold metformin Continue with glipizide DS: Summary Hospital Course Hospital Course: 72-year-old female came in with wheezing. Has a history of RSV and COVID last 12 months. Found have some bronchitis and she was given some prednisone and did exceptionally well. Patient can be discharged on prednisone as well. Otherwise she can follow-up her primary care physician patient feels back to her baseline does not require any oxygen Time Spent with Patient Time attestation: Total time spent providing and/or coordinating discharge services: Exam Const: General: cooperative, healthy appearing, comfortable, no acute distress, well developed, awake, Physically active, average body habitus and well nourished Nutritional Appearance: average body habitus and well nourished Orientation/consciousness: oriented to person, oriented to place, oriented to time and patient oriented x3 Limitations: no limitations HENMT: Head: normal to inspection, No palpable skull fracture present, normocephalic, atraumatic and abrasion Ears: hearing grossly normal bilaterally, external ears normal and TM's normal bilaterally Face/Nose/Sinus: Normal external nose present, Normal nares present and No nasal polyps present Mouth: Yes Normal oral and palatal mucosa present Throat: posterior oropharynx normal Eyes: General: appearance normal, both eyes and all related structures Alignment and Position: alignment normal Periorbital: periorbital findings normal Eyelids: eyelids normal Conjunctivae: conjunctivae normal Sclera: sclerae normal Cornea: corneas normal Pupils: Equal, round and reactive pupils present and Pupil accommodation reflex normal EOM: EOMs intact bilaterally Neck: Neck: normal visual inspection, full ROM, no lymphadenopathy, trachea midline and supple Thyroid: thyroid normal Carotids: normal carotid upstroke Lymphatic: no lymphadenopathy noted Chest: Chest palpation & inspection: normal inspection of the chest Resp: Effort & Inspection: normal respiratory effort Auscultation: clear to auscultation bilaterally and wheezes expiratory wheezes and lower bilaterally Percussion: percussion normal Cardio: Palpation: normal PMI Rate: regular rate Rhythm: regular rhythm Heart sounds: S1 normal heart sound present and S2 normal heart sound present Peripheral pulses: Peripheral pulses 2+ throughout GI: Inspection: normal to inspection Auscultation: normal bowel sounds Rectal Exam: deferred : General: Yes no CVA tenderness Back/Spine/Pelvis: Back: no CVA tenderness Cervical Spine: cervical ROM normal Thoracic/Lumbar Spine: thoracic and lumbar spine normal to inspection Pelvis: no pain with anterior-posterior compression Skin: General skin exam: normal color Lesions: no lesions Rashes: no rashes Trauma: no lacerations or
[2022-08-24 12:30] LABS: Glucose Point of Care 404 mg/dl (65-105)
[2022-08-24] MEDS: INSULIN ASPART (*BKC) 100 UNITS/ML 12 UNITS SUB-Q (12:50)
== END 2022-08-24 13:16 | disposition home or self-care (01) | DRG 203 ==
LOC: ANHED 15:22 → ANH2MED 17:20
PROVIDERS: Emergency Medicine; Nurse Practitioner; Admitting Provider Family Medicine; Emergency Provider Physician Assistant; PCP Physician Assistant; Visit Provider Chiropractor
DX: J45.909 Unspecified asthma, uncomplicated (principal); I10 Essential (primary) hypertension; E11.9 Type 2 diabetes mellitus without complications; Z20.822 Contact with and (suspected) exposure to COVID-19; E78.5 Hyperlipidemia, unspecified; F41.9 Anxiety disorder, unspecified; E03.9 Hypothyroidism, unspecified; D72.829 Elevated white blood cell count, unspecified; D53.9 Nutritional anemia, unspecified; N32.81 Overactive bladder; Z79.84 Long term (current) use of oral hypoglycemic drugs; Z86.16 Personal history of COVID-19; Z90.711 Acquired absence of uterus with remaining cervical stump; Z79.4 Long term (current) use of insulin
CPT/HCPCS: 36415; 71046; 71275; 80053; 82728; 82948; 83036; 83615; 83735; 83880; 84100; 84443; 85025; 85380; 85610; 85730; 87636; 93005; 93970; 94640; 96372; 96374; 96375; 96376; 99285; A9270; G0378; J1650; J1815; J2930; J3475; Q9967

== ENCOUNTER 2023-04-24 15:38 | Outpatient (CLI) | payer MEDICARE, OTHER, SELFPAY ==
--- NOTE | ~2023-04-24 | XR_ITS ---
Clinical Indication: Shortness of breath PA and lateral views of the chest: Comparison: 08/22/2022 Findings: Stable calcified left basilar granuloma. The lungs are otherwise clear, without evidence of focal consolidation or pleural effusion. Cardiomediastinal silhouette is within normal limits. Bone s and soft tissues are unremarkable. Impression: No significant abnormality seen. Reviewed, dictated and finalized at location M. ITY AUDITOR Impression: No significant abnormality seen.
== END 2023-04-24 15:39 | disposition home or self-care (01) ==
PROVIDERS: PCP Family Medicine; Visit Provider Physician Assistant
DX: R06.02 Shortness of breath (principal)
CPT/HCPCS: 71046

== ENCOUNTER 2024-10-08 08:05 | Outpatient (CLI) | payer MEDICARE, OTHER, SELFPAY ==
--- NOTE | ~2024-10-08 | DEXA_ITS ---
Bone Density Report Name: NAPOLEON SANCHEZ Age: 74 Sex: Female Ethnicity: White Date of : 1950 Indication: postmenopausal; screening for osteoporosis; height loss; cancer; asthma or emphysema; hysterectomy; Referring Provider: TIA GUERRERO Study: Bone densitometry was performed. Exam Date: October 08, 2024 Accession number: [id number] Bone Density: Region BMD T-score Z-score Classification AP Spine(L1-L4) 1.049 0.0 2.3 Normal Femoral Neck (Left) 0.708 -1.3 0.7 Osteopenia Total Hip (Left) 1.028 0.7 2.4 Normal Femoral Neck (Right) 0.823 -0.2 1.8 Normal Total Hip (Right) 1.063 1.0 2.7 Normal Total Hip Mean 1.046 0.9 2.6 Normal World Health Organization criteria for BMD impression classify patients as: Normal (T-score at or above -1.0), Osteopenia (T-score between -1.0 and -2.5), or Osteoporosis (T-score at or below -2.5). 10-year Fracture Risk(1): Major Osteoporotic Fracture 8.9% Hip Fracture 1.3% Reported Risk Factors: [place] (), Neck BMD=0.708, BMI=42.6 (1) FRAX(R) Version 3.08. Fracture probability calculated for an untreated patient. Fracture probability may be lower if the patient has received treatment. Clinical Information Provided by Patient: Has the following medical conditions: Asthma or Emphysema, Cancer, Hysterectomy Patient maximum height was 64.0 Menopause Age: 29 No regular weight bearing exercise Drinks caffeinated beverages Onset of menses at age 12 Number of children 3 Impression: The patient has low bone mass, based on the Left Femoral Neck T-score. The patient has an estimated ten-year risk of hip fracture of 1.3% and an estimated ten-year risk of major fracture of 8.9%, based on the WHO FRAX algorithm. Discussion: BONE DENSITY IS LOW AT ONE OR MORE SKELETAL SITES. This patient's lowest T-score is low at one or more skeletal sites. It meets the World Health Organization's (WHO) criteria for ?low bone mass? (T-score between -1.0 and -2.5). The patient's 10-year risk of fracture as calculated by FRAX is less than the threshold where pharmacological therapy is recommended by the National Osteoporosis Foundation (NOF). However, all treatment decisions require clinical judgment and consideration of individual patient factors, including patient preferences, comorbidities, previous drug use, risk factors not captured in the FRAX model (e.g., frailty, falls, vitamin D deficiency, increased bone turnover, interval significant decline in bone density) and possible under or overestimation of fracture risk by FRAX. The patient should follow a healthful lifestyle (good nutrition with adequate calcium and vitamin D, and appropriate weight-bearing exercise). Follow-Up: Consider repeating this study in 2 to 3 years to reassess this patient's status, or sooner if there is some new clinical indication. Reported by: DANYEL on 10/08/2024 8:46:00 AM. Reviewed, dictated and finalized at location [facility]enn[facility]
--- OUTSIDE RECORDS SUMMARY | 2024-10-08 08:21 | XMS_ITS ---
Author Organization [facility] [employer] [place] ([address]) Address [address] [place] [address] Care Team Providers Care Computerized Machine Fabric Cutter Name Role Phone Declan Jeffers MD Primary Care Provider Unavailab Apple Royal Unavailable [phone] Jelena Canales PA-C Unavailable Unavailable REASON FOR VISIT Laboratory Review Medications Medication SIG (Take, Route, Frequency, Duration) Notes Start Date End Date Status Vitamin D3 250 MCG (34544 UT) 1 capsule Orally Once a day for 90 days Take with Food 07/22/2024 Active Encounters Encounter Location Date Provider Diagnosis [address] [address] 07/17/2024 Apple Astudillo Vitamin D deficiency , unspecified E55.9 Assessments Encounter Date Diagnosis (ICD Code) Assessment Notes Treatment Notes Treatment Clinical Notes Section Notes 07/17/2024 Vitamin D deficiency, unspecified (ICD-10 - E55.9) Plan Of Treatment Medication Medication Name Sig Start Date Stop Date Notes Vitamin D3 250 MCG (08168 UT) 1 capsule Orally Once a day for 90 days 07/22/2024 Next Appt Details Provider Name:Eloy Fuchs , 10/09/2024 01:30:00 PM, [address] [employer] [facility], [address], [place], [address], Progress Notes * Morgan SANCHEZOB:1950 (74 yo F)Acc No.[id number]:07/17/2024 Patient: Bran ESCOBAR :1950 A ge:74 Y S ex:Female Address:[address] [place] [address], [address] * Refills Start Vitamin D3 Capsule, 250 MCG (74642 UT), Orally, 90 Capsule, 1 capsule, Once a day, 90 days, Refills=0 Subjective: * Chief Complaints: * L aboratory Review * Medical History: * Surgical History: * Hospitalization/Major Diagno stic Procedure: * Medications: Objective: * Vitals: * Physical Examination: Assessment: * Assessment: 1. V itamin D deficiency, unspecified - E55.9 (Primary) Plan: * Treatment: * Procedure Codes: * true * Date: Generated for Shabbir boswell/Bradley/Ashley on: 0 10/08/2024 08:21 AM CDT
--- OUTSIDE RECORDS SUMMARY | 2024-10-08 08:22 | XMS_ITS | CONTINUITY OF CARE DOCUMENT ---
Author Name fareed, fareed Address Unknown Organization [facility] Address [address] [place] [address] Phone [phone] Care Team Providers Care Director Trial Name Role Phone Christal DAMICO, Cheng Unavailable [phone] BRANDY PATTON MD Unavailable [phone] Whitt PA-C, Mariajose Unavailable PROBLEMS Condition Status Date Provider Notes Family History of Hypertension: active ? Bandar Siegel MD Syncope active Cheng Siegel MD Adenocarcinoma, breast active Cheng Siegel MD Diabetes, Type 2 active Cheng Siegel MD HTN essential active Cheng Siegel MD Hyperlipidemia active ? Cheng Siegel MD Hypertension active ? Cheng Siegel MD Claudication, intermittent active Cheng heaton MD PVD with claudication active Cheng Siegel MD Chest pain-type to be determined active Ham Siegel MD Dyspnea on exertion active Cheng Siegel MD Peripheral Vascular Disease active Cheng rincon MD ENCOUNTERS Date Type Provider Location Encounter Diag nosis - In-person encounter Office Visit Cheng Siegel MD [facility] Peripheral Vascular Disease - In-person encounter Office Visit Cheng Siegel MD [facility] - In-person encounter Office Visit Cheng Siegel MD [facility] - In-person encounter Office Visit Cheng Siegel MD [facility] Chest pain-type to be determinedDyspnea on exertion - In-person encounter Office Visit Cheng Siegel MD [facility] Claudication, intermittentPVD with claudication - In-person encounter Office Visit Cheng Siegel MD [facility] - In-person encounter Office Visit Cheng Siegel MD [facility] - In-person encounter Office Visit Cheng Siegel MD [facility] Family History of Hypertension:SyncopeAdenocarcinoma, breastDiabetes, Type 2HTN essentialHyperlipidemiaHypertension VITAL SIGNS Date Observation Value Provider Body Mass Index (Ratio) 41.70 kg/m2 Yolande Walters blood pressure, diastolic 74 mm[Hg] [facility] systolic 164 mm[Hg] [facility] oxygen saturation, oximetry 95 % [facility] pulse rate 88 /min [facility] respiratory rate E&M 14 /min [facility] weight E&M 228 [lb_av] [facility] height E&M 62 [in_i] [facility] blood pressure, cuff size large marlon [place] Body Mass Index (Ratio) 42.06 kg/m2 Prudence Browning blood pressure, cuff size regular Ke rri Cristiane blood pressure, diastolic 74 mm[Hg] Ke rri Cristiane blood pressure, systolic 136 mm[Hg] Sandy Sauer oxygen saturation, oximetry 98 % Bernie Sauer respiratory rate E&M 14 /min Bernie Samayoa cherileontonia pulse rate 71 /min Bernie Cantor weight E&M 230 [lb_av] Bernie Cantor height E&M 62 [in_i] Bernie Cantor Body Mass Index (Ratio) 42.06 kg/m2 Bandar Siegel MD blood pressure, cuff size large Ja rr blood pressure, diastolic 63 mm[Hg] Ja rret blood pressure, systolic 174 mm[Hg] [facility] pulse rate 78 /min Oh oxygen saturation, oximetry 98 % respiratory rate E&M 18 /min Oh weight E&M 230 [lb_av] Oh height E&M 62 [in_i] Oh y Body Mass Index (Ratio) 42.25 kg/m2 Bandar Siegel MD blood pressure, cuff size large Juan rret blood pressure, diastolic 58 mm[Hg] Ja rret blood pressure, systolic 127 mm[Hg] [employer] [facility] ret pulse rate 78 /min Oh oxygen saturation, oximetry 98 % Oh respiratory rate E&M 18 /min Oh weight E&M 231 [lb_av] Oh height E&M 62 [in_i] Oh y Body Mass Index (Ratio) 41.51 kg/m2 Bandar Siegel MD blood pressure, cuff size large Jorge Sauer blood pressure, diastolic 80 mm[Hg] Jorge Armstronguenenfelder blood pressure, systolic 124 mm[Hg] Sandy Morrisonnfelder oxygen saturation, oximetry 97 % Bernie Landrynenfelder respiratory rate E&M 12 /min Bernie Samayoa ruenenfelder pulse rate 76 /min Bernie Morrise lder weight E&M 227 [lb_av] Bernie Gruenenfe lder height E&M 62 [in_i] Bernie Landrynedonniee er Body Mass Index (Ratio) 39.14 kg/m2 Bandar Siegel MD blood pressure, diastolic 70 mm[Hg] Estrella Canada'Silvano blood pressure, systolic 122 mm[Hg] [facility] O'Silvano oxygen saturation, oximetry 98 % Jodi O'Silvano respiratory rate E&M 18 /min Jodi O'Silvano pulse rate 83 /min Jodi O'Silvano weight E&M 214 [lb_av] Jodi O'Silvano height E&M 62 [in_i] Jodi O'Silvano Body Mass Index (Ratio) 39.50 kg/m2 Bandar Siegel MD blood pressure, resting Yes Myriam Omer blood pressure, diastolic 71 mm[Hg] Estrella Omer blood pressure, systolic 123 mm[Hg] Gilda Omer oxygen saturation, oximetry 97 % Kelsi Omer respiratory rate E&M 18 /min Wili Omer pulse rate 77 /min Kelsi blakely weight E&M 216 [lb_av] Kelsi blakely height E&M 62 [in_i] Kelsi blakely Body Mass Index (Ratio) 38.77 kg/m2 Bandar Siegel MD blood pressure, diastolic 64 mm[Hg] Da caroline Wendi blood pressure, systolic 122 mm[Hg] Dac ia Wendi oxygen saturation, oximetry 97 % Swetha Wendi respiratory rate E&M 16 /min Swetha V oss pulse rate 100 /min Swetha Wendi weight E&M 212 [lb_av] Swetha Wendi height E&M 62 [in_i] Swetha Wendi ALLERGIES Allergy Name Onset Date Reaction Criticality Status JARDIANCE High Criticality active SULFAMEHTOXAZOLE High Criticality ac tive LISINOPRIL High Criticality active VRAMYST High Criticality active CEFDINIR High Criticality active LEXAPRO High Criticality active ERYTHROMYCIN High Criticality active PENICILLIN High Criticality active CODEINE High Criticality active RESULTS Date Observation Value Provider Reference Range Interpretation Location 0 lipoprotein, beta, serum, point, quantitative, calculated 90 mg/dL [facility] 0-99 0 HDL cholesterol, serum 44 mg/dL [facility] >39 0 triglyceride, serum, random 212 mg/dL [facility] 0-149 High 0 cholesterol, serum 170 mg/dL [facility] 033-352 8397/04/2 0 calcium, serum 9.0 mg/dL [facility] 8.7-10.3 0 carbon dioxide, venous blood 20 mmol/L [facility] 20-29 0 chloride, serum 105 mmol/L [facility] 96-106 0 potassium, serum 4.3 mmol/L [facility] 3.5-5.2 0 sodium, serum 140 mmol/L [facility] 301-336 1006/04/2 0 urea nitrogen/creatinin e ratio, serum 19 [facility] 12-28 0 creatinine, serum 1.43 mg/dL [facility] 0.57-1.00 High 0 urea nitrogen, blood 27 mg/dL [facility] 8-27 0 blood glucose, random 125 mg/dL [facility] 70-99 High 0 prothrombin time (patient) 10.4 s [facility] 9.1-12.0 0 international normalized ratio (INR) 1.0 [facility] 0.9-1.2 0 basophil count, absolute 0.1 x10E3/uL [facility] 0.0-0.2 0 Eosinophil Absolute Count 1.4 X10E3/UL [facility] 0.0-0.4 High 0 monocyte count, blood, automated 0.7 X10E3/UL [facility] 0.1-0.9 0 lymphocyte count, blood, automated 1.9 X10E3/UL [facility] 0.7-3.1 0 Absolute Neutrophils 9.1 X10E3/UL [facility] 1.4-7.0 High 0 basophils as percent of blood leukocytes 1 % [facility] Not Estab. 0 eosinophils as percent of blood leukocytes 11 % [facility] Not Estab. 0 monocytes as percent of blood leukocytes 5 % [facility] Not Estab. 0 lymphocytes as percent of blood leukocytes 15 % [facility] Not Estab. 0 neutrophils as percent of blood leukocytes 67 % [facility] Not Estab. 0 platelet count 303 X10E3/UL [facility] 755-613 4950/04/2 0 red blood cell distribution width 12.0 % [facility] 11.7-15.4 0 mean corpuscular hemoglobin concentration, RBC 33.2 G/DL [facility] 31.5-35.7 0 mean corpuscular hemoglobin, RBC 31.2 pg [facility] 26.6-33.0 0 mean corpuscular volume, RBC 94 fL [facility] 79-97 0 hematocrit, blood 37.0 % [facility] 34.0-46.6 0 hemoglobin, blood 12.3 g/dL [facility] 11.1-15.9 0 erythrocyte (RBC) count 3.94 X10E6/UL [facility] 3.77-5.28 0 leukocyte count, blood 13.3 X10E3/UL [facility] 3.4-10.8 High 7 prothrombin time (patient) 9.9 s [facility] 9.0-11.5 Normal 7 international normalized ratio (INR) 0.9 [facility] Normal 7 basophils as percent of blood leukocytes 0.6 % [facility] Normal 7 eosinophils as percent of blood leukocytes 4.6 % [facility] Normal 7 monocyte count, blood 5.9 % [facility] Normal 7 lymphocyte count, blood 20.6 % [facility] Normal 7 neutrophils as percent of blood leukocytes 68.3 % [facility] Normal 7 basophils, absolute, manual 88 cells/mcL [facility] 0-200 Normal 7 eosinophils, absolute, manual 676 cells/mcL [facility] 15-500 High 7 monocytes, absolute, manual 867 cells/mcL [facility] 200-950 Normal 7 lymphocytes, absolute 3028 CELLS/UL [facility] 850-3900 Normal 7 Absolute Neutrophil count 14951 cells/mcL [facility] 5034-7375 High 7 mean platelet volume 12.0 fL [facility] 7.5-12.5 Normal 7 platelet count 328 THOUSAND/U L [facility] 140-400 Normal 7 red blood cell distribution width 13.4 % [facility] 11.0-15.0 Normal 7 mean corpuscular hemoglobin concentration, RBC 32.6 G/DL [facility] 32.0-36.0 Normal 7 mean corpuscular hemoglobin, RBC 31.2 pg [facility] 27.0-33.0 Normal 7 mean corpuscular volume, RBC 95.7 fL [facility] 80.0-100.0 Normal 7 hematocrit, blood 37.4 % [facility] 35.0-45.0 Normal 7 hemoglobin electrophoresis, blood 12.2 [facility] 11.7-15.5 Normal 7 erythrocyte (RBC) count 3.91 MILLION/UL [facility] 3.80-5.10 Normal 7 leukocyte (white blood cells) count, blood 14.7 THOUSAND/U L [facility] 3.8-10.8 High 7 calcium, serum 9.7 mg/dL [facility] 8.6-10.4 Normal 7 carbon dioxide, venous blood 26 mmol/L [facility] 20-32 Normal 7 chloride, serum 105 mmol/L [facility] 98-110 Normal 7 potassium, serum 4.3 mmol/L [facility] 3.5-5.3 Normal 7 sodium, serum 139 mmol/L [facility] 135-146 Normal 7 urea nitrogen/creatinin e ratio, serum 25 (calc) [facility] 6-22 High 7 creatinine, serum 1.47 mg/dL [facility] 0.60-1.00 High 7 urea nitrogen, blood 37 mg/dL [facility] 7-25 High 7 blood glucose, random 90 mg/dL [facility] 65-99 Normal 7 cholesterol, non-HDL, total 184 MG/DL (CALC) [facility] <130 High 7 cholesterol/HDL ratio, serum, percent 5.6 (calc) [facility] <5.0 High 7 LDL cholesterol, serum 145 MG/DL (CALC) [facility] High 7 triglyceride, serum, fasting 256 mg/dL [facility] <150 High 7 HDL cholesterol, serum 40 mg/dL [facility] > OR = 50 Low 7 cholesterol, serum 224 mg/dL [facility] <200 High HISTORY OF MEDICATION USE Medication Status Instructions Dates Provider Indications Com ments rosuvastatin 5 mg tablet active Keiry Gonzalez clopidogrel 75 mg tablet active TAKE 1 TABLET BY MOUTH DAILY Keiry Gonzalez Fasenra active one shot every 2 months Bernie Sauer triamterene-hydr ochlorothiazid 75-50 mg tablet active take 1 pill a day Bernie Sauer Breztri Aerosphere 160-9-4.8 mcg/actuation HFA aerosol inhaler completed - Bernie Sauer albuterol sulfate 90 mcg/actuation HFA aerosol inhaler active Yessi Lucas NP ipratropium-albu terol 0.5 mg-3 mg(2.5 mg base)/3 mL solution for nebulization completed - Bernie Sauer ipratropium-albu terol 0.5 mg-3 mg(2.5 mg base)/3 mL solution for nebulization completed - Oh clopidogrel 75 mg tablet completed Take 1 tablet by mouth once a day - Keiry Gonzalez budesonide 0.5 mg/2 mL suspension for nebulization completed - Bernie Sauer clopidogrel 75 mg tablet completed 1 tablet by mouth once a day - Bernie Sauer Lantus Solostar U-100 Insulin 100 unit/mL (3 mL) insulin pen active Bernie Sauer glipizide 10 mg tablet active Take 1 tablet by mouth once a day Oh Novolog FlexPen U-100 Insulin 100 unit/mL (3 mL) insulin pen active Bernie Sauer aspirin 81 mg tablet,delayed release (DR/EC) active Take 1 tablet by mouth once a day Bernie Sauer Jardiance 25 mg tablet completed 1 tablet once a day - Bernie Sauer Januvia 100 mg tablet completed 1 tablet once a day - Bernie Sauer ASPIRIN 325 MG ORAL TABLET completed take one tablet daily - Jodi Sandoval Glucotrol XL 10 mg tablet extended release 24hr completed Take 1 tablet once a day - Bernie Sauer diclofenac sodium 75 mg tablet,delayed release (DR/EC) active Take 1 once a day Bernie Sauer BACTROBAN 2 % EXTERNAL OINTMENT completed apply to affected area twice daily - Jodi Sandoval Protopic 0.1% ointment completed Apply to skin twice a day - Bernie Sauer clobetasol 0.05% cream completed 1 twice a day - Bernie Sauer ADVAIR DISKUS 250-50 MCG/DOSE INHALATION AEROSOL POWDER BREATH ACTIVATED completed take 2 puffs daily - Jodi Sandoval ProAir HFA 90 mcg/actuation HFA aerosol inhaler completed 2 puff every four hours as needed - Oh Moore lorazepam 0.5 mg tablet completed Take 1 tablet three times a day - Cheng Siegel MD Diovan 40 mg tablet completed Take 1 tablet once a day - Bernie Sauer Zyrtec 10 mg tablet active Take 1 tablet once a day Bernie Sauer Maxzide 75-50 mg tablet completed 0.5 tablet once a day - Bernie Sauer Levo-T 75 mcg tablet active Take 1 tablet once a day Bernie Sauer GLUCOPHAGE XR 500 MG ORAL TABLET EXTENDED RELEASE 24 HOUR completed take one tablet daily - Jodi Sandoval ACETAMINOPHEN 500 MG ORAL CAPSULE completed Take 2 tablet twice a day as needed - Bernie Sauer azithromycin 250 mg tablet completed Take 1 once a day as needed - Bernie Sauer SOCIAL HISTORY Date Observation Value Provider personal history of marijuana use no Cheng Siegel MD drug use no Cheng Rodriguez alcohol use no Chneg Rodriguez passive cigarette sm sunny exposure no Cheng Siegel MD smoking status Never smoker Cheng Siegel MD personal history of marijuana use no Cheng Siegel MD drug use no Cheng Rodriguez alcohol use no Cheng Rodriguez passive cigarette sm sunny exposure no Cheng Siegel MD smoking status Never smoker Cheng Siegel MD personal history of marijuana use no Yessi Lucas METAL SLITTER drug use no Yessi Warrenri METAL SLITTER alcohol use no Yessi Warrenri METAL SLITTER passive cigarette sm sunny exposure no Yessi Lucas METAL SLITTER smoking status Never smoker Yessi Moncada i METAL SLITTER alcohol use no Cheng Rodriguez passive cigarette sm sunny exposure no Cheng Siegel MD smoking status Never smoker Cheng Siegel MD alcohol use no Cheng Rodriguez passive cigarette sm sunny exposure no Cheng Siegel MD smoking status Never smoker Cheng Siegel MD social history E&M Marital Statu s: Malorie hildren: 3 O ccupation: Retired Smoking History: Belia garrison has never smoked. Cheng Siegel MD social history reviewed E&M revi ewed - no changes required Cheng Siegel MD alcohol use no Jodi Sandoval passive cigarette sm sunny exposure no Jodi VazquezSilvano smoking status Never smoker Jodi Jaime social history E&M Marital Statu s: Malorie schultz: 3 O ccupation: Retired Smoking History: Belia garrison has never smoked. Cheng Siegel MD social history reviewed E&M revi ewed - no changes required hCeng Siegel MD alcohol use no Kelsi Diaz nson passive cigarette sm sunny exposure no Kelsi Omer smoking status Never smoker Kelsi Trinidad passive cigarette sm sunny exposure no Cheng Siegel MD social history E&M S moking History: Belia garrison has never smoked. M arital Status: Malorie schultz: 3 O ccupation: Retired Cheng Siegel MD social history reviewed E&M revi ewed - no changes required Cheng Siegel MD alcohol use no Swetha Wendi smoking status Never smoker Swetha Adame FAMILY HISTORY Family Member Condition Father Family History of [place]iposa ng Cancer: Mother Family History of Co ronary Artery Disease: Mother Family History of Hy pertension: INSURANCE PROVIDERS Payer name Policy type / Coverage type [place] red green party ID [employer] [id number] [place] MED[employer] Medicare [id number] ADVANCE DIRECTIVES Name Date DISCUSSED - NO DECISION MADE TREATMENT PLAN Date Name Performer Cardiology: l ast echo 08/2023 ef 60% s cheduled to see a Gravity Prospecting Operator for further eval. Cheng Siegel MD Cardiology: A 1c down to 7. M anaged per PCP H er updated medication list for this problem includes: Glipizide 10 Mg Tablet (Glipizide) ..... Take 1 tablet by mouth once a day Valsartan 40 Mg Tablet (Valsartan) ..... Take 1 tablet by mouth once a day Lantus Solostar U-100 Insulin 100 Unit/ml (3 Ml) Insulin Pen (Insulin glargine) Novolog Flexpen U-100 Insulin 100 Unit/ml (3 Ml) Insulin Pen (Insulin aspart u-100) Aspirin 81 Mg Tablet,delayed Release (dr/ec) (Aspirin) ..... Take 1 tablet by mouth once a day Cheng Siegel MD Cardiology Cheng Siegel MD Cardiology Cheng Siegel MD Cardiology: N o current symptoms. Cardiac Cath 10/15/23 with no angiographically identifiable CAD Cheng Siegel MD Cardiology:Doing well after INSURANCE SPECIAL AGENT Cheng Siegel MD Cardiology:A1c down to 7. M anaged per PCP H er updated medication list for this problem includes: Glipizide 10 Mg Tablet (Glipizide) ..... Take 1 tablet by mouth once a day Valsartan 40 Mg Tablet (Valsartan) ..... Take 1 tablet by mouth once a day Lantus Solostar U-100 Insulin 100 Unit/ml (3 Ml) Insulin Pen (Insulin glargine) Novolog Flexpen U-100 Insulin 100 Unit/ml (3 Ml) Insulin Pen (Insulin aspart u-100) Aspirin 81 Mg Tablet,delayed Release (dr/ec) (Aspirin) ..... Take 1 tablet by mouth once a day Cheng Siegel MD Cardiology: C robbrentlshi not on any medication. Cheng Siegel MD Cardiology Cheng Siegel MD Cardiology: N o current symptoms Cheng Siegel MD Cardiology: N o current symptoms. Cardiac Cath 10/15/23 with no angiographically identifiable CAD Cheng Siegel MD Cardiology: N o current symptoms. Yessi Lucas NP Cardiology: l ast echo 08/2023 ef 60% s cheduled to see a Gravity Prospecting Operator for further eval. Yessi Lucas NP Cardiology: N o current symptoms Yessi Lucas NP Cardiology: N o current symptoms. Cardiac Cath 10/15/23 with no angiographically identifiable CAD Yessi Lucas NP Cardiology: M anaged per PCP H er updated medication list for this problem includes: Glipizide 10 Mg Tablet (Glipizide) ..... Take 1 tablet by mouth once a day Valsartan 40 Mg Tablet (Valsartan) ..... Take 1 tablet by mouth once a day Lantus Solostar U-100 Insulin 100 Unit/ml (3 Ml) Insulin Pen (Insulin glargine) Novolog Flexpen U-100 Insulin 100 Unit/ml (3 Ml) Insulin Pen (Insulin aspart u-100) Aspirin 81 Mg Tablet,delayed Release (dr/ec) (Aspirin) ..... Take 1 tablet by mouth once a day Yessi Lucas NP Cardiology: C urrently not on any medication. Yessi Lucas NP Cardiology: B P today: 174/63 P rior BP: 127/58 (09/04/2023) Her updated medication list for this problem includes: Valsartan 40 Mg Tablet (Valsartan) ..... Take 1 tablet by mouth once a day Maxzide 75-50 Mg Tablet (Triamterene-hydrochlorothiazid) ..... 0.5 tablet once a day Aspirin 81 Mg Tablet,delayed Release (dr/ec) (Aspirin) ..... Take 1 tablet by mouth once a day Yessi Lucas NP Cardiology:ECHO Cheng Siegel MD Cardiology:Regadenoson myoview R meagan Siegel MD Cardiology Cheng Siegel MD Cardiology:S/P RLE INSURANCE SPECIAL AGENT Cheng heaton MD Cardiology Cheng Siegel MD Cardiology Cheng Siegel MD Cardiology Cheng Siegel MD Cardiology:Abnormal ABIs R>L. Needs angio and possible intervention. Cheng Siegel MD Cardiology Cheng Siegel MD Cardiology Cheng Siegel MD Cardiology Cheng Siegel MD Cardiology Cheng Siegel MD Cardiology Cheng Siegel MD Cardiology Cheng Siegel MD Cardiology Cheng Siegel MD Cardiology Cheng Siegel MD Cardiology Cheng Siegel MD Cardiology Cheng Siegel MD Cardiology New patient Cheng heaton MD Cardiology New patient Cheng heaton MD Cardiology New patient Cheng heaton MD Cardiology New patient Cheng heaton MD Cardiology New patient Cheng heaton MD Cardiology New patient Cheng heaton MD Date Name PROTHROMBIN TIME WIT H INR LIPID PANEL CBC (INCLUDES DIFF/P LT) BASIC METABOLIC PANE L W/EGFR PROTHROMBIN TIME WIT H INR LIPID PANEL CBC (INCLUDES DIFF/P LT) BASIC METABOLIC PANE L W/EGFR Stress Regadenoson Complete Echo BASIC METABOLIC PANE L W/EGFR CBC (INCLUDES DIFF/P LT) LIPID PANEL PROTHROMBIN TIME WIT H INR HISTORY OF PROCEDURES Procedure Date Procedure Name Provider Procedure Notes S tatus Complex e/m visit add on Cheng Siegel MD completed FVC / MVV with bronchodilator - 24056 Cheng Siegel MD completed BLOOD COUNT HEMOGLOBIN Cheng Siegel MD completed FRC - 24640 Cheng Siegel MD complet ed SpO2 w/o 6min walk/titration Cheng Siegel MD completed DLCO - 13891 Cheng Siegel MD comple margarita EKG Cheng Siegel MD complete d EKG Cheng Siegel MD complete d Regadenoson, 4 units Cheng Siegel MD completed Cardiolite, 2 units Cheng Siegel MD completed SPECT Images Jenn Ontiveros MD compl eted Stress EKG Abdulkadir López MD completed EKG Cheng Siegel MD complete d
--- OUTSIDE RECORDS SUMMARY | 2024-10-08 08:22 | XMS_ITS | Clinical Summary ---
Author Organization [facility] Address [address] [place] [address] Care Team Providers Care Test Developer Name Role Phone Unavailable Primary Care Provider Unavailabl e Social History Tobacco Use Types Packs/Day Years Used Date Smoking Tobacco: Never Assessed Comments Unknown Sex and Gender Information Value Date Recorded Sex Assigned at Not on file Legal Sex Female 7:40 PM CDT Gender Identity Not on file Sexual Orientation Not on file Plan of Treatment Health Maintenance Due Date Last Done Comments Colorectal Cancer Screening Colonoscopy (10 Years) 1950 Hepatitis C 1969 DTaP, Tdap and Td Vaccines ( 1 - Tdap) 1970 Mammogram Screening 1991 Pneumococcal Vaccine: 50+ Ye ars (1 of 1 - PCV) 2001 Zoster Vaccines (1 of 2) 2001 Dexa Scan (General) 2016 COVID-19 Vaccine (2023-2 5 season) 2024 RSV Immunization or 60+ Years (1 - 1-dose 75+ series) 2026 Meningococcal B Vaccine Aged Out No l onger eligible based on patient's age to complete this topic Meningococcal Vaccine Aged Out No chava fernando eligible based on patient's age to complete this topic RSV Immunizations Under 20 Months Aged Out No longer eligible based on patient's age to complete this topic
--- OUTSIDE RECORDS SUMMARY | 2024-10-08 08:22 | XMS_ITS | Continuity of Care Document ---
Author Organization [facility] Address [address] [place] [address] [place] [address] Phone Care Team Providers Care Associate Professor Of Art History Name Role Phone Unavailable Unavailable Unavailable Advance Directives Directive Yes / No Effective Date File Name No Information Encounters Encounter Description Practice Location Reason(s) For Visit Diagnoses Date Provider Providers Copied on Encounter [facility], [id number] [place] [address] [address] [place], [place], [id number], [place] tel:[phone] [facility] No Information Jul- 0-200 0 No Information Family History Family Member Type Diagnosis Age At Onset No Information Payers Payer name Insurance type Covered democrat ID Authoriza tion(s) No Information Social History Type Description Quantity Date Captured Comments Sex Female Smoking Status No Information Chief Complaint And Reason For Visit No Information Reason For Referral Reason For Referral No Information History Of Present Illness Encounter Date Complaint History Of Prese nt Illness No Information Functional Status Date Functional Assessmen t No Information Instructions Date Instruction Additional Infor mation No Information Assessments Type Assessment Date No Information Patient Care Teams Name Effective Dates (start - stop) Status Members No Information
--- OUTSIDE RECORDS SUMMARY | 2024-10-08 08:22 | XMS_ITS ---
Author Organization [employer] [place] ([address]) Address [address] [place] [address] Care Team Providers Care Electronic Sales And Service Technician Name Role Phone Declan Jeffers MD Primary Care Provider Unavailab Apple Royal Unavailable [phone] Jelena Canales PA-C Unavailable Unavailable Allergies Allergen (clinical drug ingredient) Drug/Non Drug Allergy documented on EMR Reaction Allergy Type Onset Date Status codeine CODEINE, (uncoded) hallucinations Allergy Active JANUVIA SHOT (uncoded) trouble breathing Allergy Active VRANYST (uncoded) mouth swelling Allergy Active Empagliflozin difficulty swallowing Drug Allergy Active erythromycin Erythromycin Base chest pain Drug Allergy Active empagliflozin Jardiance throat closing Drug Allergy Active Lisinopril cough Drug Allergy Active Sulfamethoxazole rash Drug Allergy Active Penicillin rash Drug Allergy Active sitagliptin SITagliptin difficulty swallowing Drug Allergy Active REASON FOR VISIT Severe eosinophil asthma- previously OCS dependent. Continues Trelegy and Fasenra (initiated on 12/19/23). Clear improvement in asthma symptoms on new medication regimen. Previously inconsistent with Trelegy, now back to daily dosing with minimal JENNA use. ACT 15., Chronic rhinitis - takes Zyrtec and Azelastine daily. ImmunoCaps negative with total IgE 15., Vitamin D deficiency - Recent level 12.1.Now on supplementation with plans for recheck in 10/2024. Medications Medication SIG (Take, Route, Frequency, Duration) Notes Start Date End Date Status Vitamin D3 250 MCG (53716 UT) 1 capsule Orally Once a day Take with Food 02/04/202 5 Active Montelukast Sodium 10 MG 1 tablet Orally at night for 90 days Active Azelastine HCl 137 MCG/SPRAY 2 sprays in each nostril Nasally Twice a day for 30 days Active Airsupra 90 MCG-80 MCG/INH 2 INH INHALED 4 TIMES A DAY *Please review and pick correct strength-formul ation from [employer] options. If intended option is not shown, discontinue and re-order from Quick Search* Not-Taking Budesonide 0.25 MG/2ML 2 mL by nebulizer 2 times a day Not-Taking PROAIR HFA 90 MCG/INH 2 PUFF(S) INHALED EVERY 6 HOURS *Please review for potential replacement for e-prescription and drug interaction check* Not-Taking predniSONE 20 MG 3 tab(s) orally once a day for 4 days Not-Taking Fasenra 30 MG/ML 1 null Subcutaneous for 30 days Active Trelegy Ellipta 200-62.5-25 MCG/ACT 1 puff Inhalation Once a day for 90 days Active Albuterol Sulfate HFA 108 (90 Base) MCG/ACT 2 puffs as needed Inhalation every 4 hrs for 30 days Active Valsartan 80 MG 1 tab(s) orally once a day Not-Taking Clopidogrel Bisulfate 75 MG 1 tab(s) orally once a day 4 Not-Taking LORazepam 0.5 MG 1 tab(s) orally every 8 hours Not-Taking ZYRTEC 10mg 1 tablet PO QD Act miguel angel ALBUTEROL 2.5 mg/3 mL (0.083%) 3 mL by nebulizer every 6 hours Active AEROCHAMBER MDI SPACER - MOUTHPIECE (ADULT) N/A As directed PO Per asthma action plan for 30 days Active BUDESONIDE 0.25 mg/2 mL 2 mL by nebulize r 2 times a day Not-Taking ZyrTEC Allergy 10 MG 1 tablet PO QD Not-Taking Albuterol Sulfate (2.5 MG/3ML) 0.083% 3 mL by nebulizer every 6 hours Not-Taking Breztri Aerosphere 160 MCG-4.8 MCG-9 MCG/INH 2 PUFF(S) INHALED 2 TIMES A DAY *Please review and pick correct strength-formul ation from [employer] options. If intended option is not shown, discontinue and re-order from Quick Search* Not-Taking NOVOLOG FLEXPEN 100 units/mL as directed subcutaneously 3 times a day (before meals) Not-Taking LANTUS 100 units/mL 0 subcutaneously Not-Taking ASPIRIN 81 mg 1 tab(s) orally once a day Not-Taking BREZTRI AEROSPHERE 160 mcg-4.8 mcg-9 mcg/inh 2 puff(s) inhaled 2 times a day Not-Taking PREDNISONE 20 mg 3 tab(s) orally once a day for 4 days to start tomorrow, 10/25/23 4 Not-Taking LEVOTHYROXINE 75 mcg (0.075 mg) 1 tab(s) orally once a day Not-Taking MAXZIDE 50 mg-75 mg 1 tab(s) orally once a day Not-Taking CLOPIDOGREL 75 mg 1 tab(s) orally once a day 4 Not-Taking LORAZEPAM 0.5 mg 1 tab(s) orally every 8 hours Not-Taking DICLOFENAC sodium 75 mg 1 tab(s) orally 2 times a day Not-Taking Albuterol Sulfate HFA 108 (90 Base) MCG/ACT 1 puff as needed Inhalation every 4 hrs Not-Taking Levothyroxine Sodium 75 MCG 1 tablet in the morning on an empty stomach Orally Once a day Not-Taking TRELEGY ELLIPTA 200 mcg-62.5 mcg-25 mcg/inh 1 puff(s) inhaled once a day Not-Taking GLIPIZIDE 10 mg 1 tab(s) orally once a day 4 Not-Taking VALSARTAN 80 mg 1 tab(s) orally once a day Not-Taking Lantus 100 UNIT/ML 0 subcutaneously Active Aspirin 81 MG 1 tab(s) orally once a day Active Levothyroxine Sodium 75 MCG 1 tab(s) orally once a day Active Maxzide 50 MG-75 MG 1 TAB(S) ORALLY ONCE A DAY *Please review and pick correct strength-formul ation from [employer] options. If intended option is not shown, discontinue and re-order from Quick Search* Active NovoLOG FlexPen 100 UNIT/ML as directed subcutaneously 3 times a day (before meals) Active hydroCHLOROthiazide 50 MG 1 tablet in the morning Orally Once a day Active Cetirizine HCl 10 MG 1 tablet Orally Once a day Active Trelegy Ellipta 200 MCG-62.5 MCG-25 MCG/INH 1 PUFF(S) INHALED ONCE A DAY *Please review and pick correct strength-formul ation from [employer] options. If intended option is not shown, discontinue and re-order from Quick Search* Active glipiZIDE 10 MG 1 tab(s) orally once a day 4 Active Diclofenac Sodium 75 MG 1 tab(s) orally 2 times a day Active Valsartan 40 MG 1 tablet Orally Twice a day Active Plavix 75 MG 1 tablet Orally Once a day Active Social History Tobacco Use: Social History Observation Description Date Details (start date - stop date) Never Smoker NA - NA Tobacco Control (Standard) Question Answer Notes Tobacco use: Nonsmoker Vital Signs Blood pressure systolic 158 mm Hg 08/07/19 Blood pressure diastolic 71 mm Hg 025 Oximetry 98 % 08/07/2024 Height 61 in 08/07/2024 Weight 233.4 lbs 08/07/2024 BMI 44.1 kg/m2 08/07/2024 Encounters Encounter Location Date Provider Diagnosis [facility] [address] [address] 08/07/2024 Apple Astudillo Severe persistent asthma, uncomplicated J45.50 ; Eosinophilic asthma J82.83 ; Personal history of systemic steroid therapy Z92.241 ; Wheezing R06.2 ; Hypertrophy of nasal turbinates J34.3 ; Chronic rhinitis J31.0 ; Vitamin D deficiency, unspecified E55.9 and Essential (primary) hypertension I10 Assessments Encounter Date Diagnosis (ICD Code) Assessment Notes Treatment Notes Treatment Clinical Notes Section Notes 08/07/2024 Severe persistent asthma, uncomplicated (ICD-10 - J45.50) Jenae returns today to continue treatment with FASENRA, approved for several eosinophilic asthma. Treatment was initiated in December 2023. Previously OCS dependent asthmatic maximized on high dose. She has had a great clinical improvement on her biologic therapy. Prior vist in 03/2024, ACT=13 as she was not c/w meds. Last visit, reported improvement as she is back on daily Trelegy.Today, she is one week behind on dosing with more noticeable shortness of breath on exertion and one nighttime waking. She did not treat with JENNA. ACT 15. -Jenae is an ideal candidate for Fasenra given her steroid requirement, low ACT, and maximized treatment regiment. Dosing today continued and she will continue Q8 week dosing. Will monitor lower airway symptoms. Last OCS in 10/2023. If she continues to have symptoms consider a change in biologic HOWEVER her compliancy to taking daily meds has been an issue. Also, today she is one week behind on dosing. - Continue medications.Trelegy 1 puff in the morning and Singulair at night. Continue to brush teeth after inhalation. Refills sent for SIngulair. - Pre-treatment [id number]. Last CBC showed AEC=0 - PFTs from previously reviewed. Conclusion read Although there is airway obstruction and a diffusion defect suggesting emphysema, the absenece of overinflation is inconsistent with that diagnosis. The MVV is reduced more than FEV1 suggeting poor effort or concurrent neuromuscular disease. Discussed with Dr. Phillips and she agreed with biologic initiation with Fasenra. At this point Dr. Phillips will see her PRN. - Initial spirometry showed normal FVC, FEV1, borderline FEV%. FVL shows scalloping on exhalation. Normal lung age. FEV1 1.92L, 270cc increase from FEV1 in 09/2023 (1.65L). This is c/w ATS-defined criteria for asthma diagnosis. - Last spirometry showed normal FVC, FEV1, FEV%. FVC increased by 140cc and FEV1 increased by 290cc compared to 11/2023 spirometry. FVL shows scalloping on end-exhalation. Normal lung age. - Continue high dose Trelegy 1 puff QD. Encouraged Jenae she must remain on a controller inhaler. Instructed to brush teeth after inhalation. Watch for compliancy. - Continue JENNA per AAP. Again, instructed she should use her JENNA for SOB. Instructed her to seek urgent evaluation for SOB not relieved by JENNA. - AirSupra attempted, but patient I did not like the way it made me feel. Will continue albuterol PRN - no interval use since Fasenra was initiated. - Per recommendations from pulmonology in 05/2023, Jenae was ordered for six-minute walk test, but never followed up. Per patient was told to follow-up with Pulmonary PRN. Recommend full PFTs with pulmonology in 2024. - Alpha-1 antitrypsin=MM - Closely follow frequency of infections; consider PI work-up. Pneumococcal vaccine received in the last year - needs to bring in date. Recommend annual flu shot, COVID booster, and RSV vaccines. Patient is considering. Completed Shingles series since last visit. - Consider additional imaging but clinically stable on current regimen; will clint monitor given her history of PE/DVT - Follow-up in 8 weeks for FASENRA dosing, E&M 08/07/2024 Eosinophilic asthma (ICD-10 - J82.83) The patient has severe asthma with an eosinophilic phenotype. The patient has had inadequate control of asthma symptoms after a minimum of 3 months of compliant use of inhaled corticosteriods and long-acting beta2-agonist or inhaled corticosteroids and long-acting anti-muscarinic antagonist. The patient has had an eosinophil count in the past 90 days or 12 months as documented in this medical record, and the medical staff has assessed the patient for the medical appropriateness for a varicella vaccination (recommended for patients age 50 or older). - Fasenra given today and tolerated without adverse effect. - Completed Shingles vaccine series. 08/07/2024 Personal history of systemic steroid therapy (ICD-10 - Z92.241) At one time Jenae was nearly steroid dependent. She has required steroids intermittently for years. - Recommend DEXA can with PCP. 08/07/2024 Wheezing (ICD-10 - R06.2) Clear on exam today 08/07/2024 Hypertrophy of nasal turbinates (ICD-10 - J34.3) ImmunoCaps negative to all aeroallergens, total IgE 25. Repeat ImmunoCaps off steroids for several months negative to all aeroallergens with toal IgE 15. Consider aeroallergen skin testing based off results. Doing well on Astelin QD-BID. 08/07/2024 Chronic rhinitis (ICD-10 - J31.0) As stated above. 08/07/2024 Vitamin D deficiency, unspecified (ICD-10 - E55.9) Vitamin D level 12.1. Recommended 10,000IU daily x 3 months which Jenae has now started. - Due for recheck of Vitamin D in 10/2024. 08/07/2024 Essential (primary) hypertension (ICD-10 - I10) BP elevated today without symptoms of urgency or emergency. Continue serial checks and follow-up with PCP 08/07/2024 Other Plan Of Treatment Medication Medication Name Sig Start Date Stop Date Notes Vitamin D3 250 MCG (58131 UT) 1 capsule Orally Once a day 07/22/2024 Montelukast Sodium 10 MG 1 tablet Orally at night for 90 days Azelastine HCl 137 MCG/SPRAY 2 sprays in each nostril Nasally Twice a day for 30 days Fasenra 30 MG/ML 1 null Subcutaneous for 30 days Trelegy Ellipta 200-62.5-25 MCG/ACT 1 puff Inhalation Once a day for 90 days Albuterol Sulfate HFA 108 (9 0 Base) MCG/ACT 2 puffs as needed Inhalation every 4 hrs for 30 days ZYRTEC 10mg 1 tablet PO QD ALBUTEROL 2.5 mg/3 mL (0.083%) 3 mL by nebulizer every 6 hours AEROCHAMBER MDI SPACER - MOUTHPIECE (ADULT) N/A As directed PO Per asthma action plan for 30 days Treatment Notes Assessment Notes Severe persistent asthma, uncomplicated Jenae returns today to continue treatment with FASENRA, approved for several eosinophilic asthma. Treatment was initiated in December 2023. Previously OCS dependent asthmatic maximized on high dose. She has had a great clinical improvement on her biologic therapy. Prior vist in 03/2024, ACT=13 as she was not c/w meds. Last visit, reported improvement as she is back on daily Trelegy.Today, she is one week behind on dosing with more noticeable shortness of breath on exertion and one nighttime waking. She did not treat with JENNA. ACT 15. -Jenae is an ideal candidate for Fasenra given her steroid requirement, low ACT, and maximized treatment regiment. Dosing today continued and she will continue Q8 week dosing. Will monitor lower airway symptoms. Last OCS in 10/2023. If she continues to have symptoms consider a change in biologic HOWEVER her compliancy to taking daily meds has been an issue. Also, today she is one week behind on dosing. - Continue medications.Trelegy 1 puff in the morning and Singulair at night. Continue to brush teeth after inhalation. Refills sent for SIngulair. - Pre-treatment [id number]. Last CBC showed AEC=0 - PFTs from previously reviewed. Conclusion read Although there is airway obstruction and a diffusion defect suggesting emphysema, the absenece of overinflation is inconsistent with that diagnosis. The MVV is reduced more than FEV1 suggeting poor effort or concurrent neuromuscular disease. Discussed with Dr. Phillips and she agreed with biologic initiation with Fasenra. At this point Dr. Phillips will see her PRN. - Initial spirometry showed normal FVC, FEV1, borderline FEV%. FVL shows scalloping on exhalation. Normal lung age. FEV1 1.92L, 270cc increase from FEV1 in 09/2023 (1.65L). This is c/w ATS-defined criteria for asthma diagnosis. - Last spirometry showed normal FVC, FEV1, FEV%. FVC increased by 140cc and FEV1 increased by 290cc compared to 11/2023 spirometry. FVL shows scalloping on end-exhalation. Normal lung age. - Continue high dose Trelegy 1 puff QD. Encouraged Jenae she must remain on a controller inhaler. Instructed to brush teeth after inhalation. Watch for compliancy. - Continue JENNA per AAP. Again, instructed she should use her JENNA for SOB. Instructed her to seek urgent evaluation for SOB not relieved by JENNA. - AirSupra attempted, but patient I did not like the way it made me feel. Will continue albuterol PRN - no interval use since Fasenra was initiated. - Per recommendations from pulmonology in 05/2023, Jenae was ordered for six-minute walk test, but never followed up. Per patient was told to follow-up with Pulmonary PRN. Recommend full PFTs with pulmonology in 2024. - Alpha-1 antitrypsin=MM - Closely follow frequency of infections; consider PI work-up. Pneumococcal vaccine received in the last year - needs to bring in date. Recommend annual flu shot, COVID booster, and RSV vaccines. Patient is considering. Completed Shingles series since last visit. - Consider additional imaging but clinically stable on current regimen; will clint monitor given her history of PE/DVT - Follow-up in 8 weeks for FASENRA dosing, E&M Eosinophilic asthma The patient has severe asthma with an eosinophilic phenotype. The patient has had inadequate control of asthma symptoms after a minimum of 3 months of compliant use of inhaled corticosteriods and long-acting beta2-agonist or inhaled corticosteroids and long-acting anti-muscarinic antagonist. The patient has had an eosinophil count in the past 90 days or 12 months as documented in this medical record, and the medical staff has assessed the patient for the medical appropriateness for a varicella vaccination (recommended for patients age 50 or older). - Fasenra given today and tolerated without adverse effect. - Completed Shingles vaccine series. Personal history of systemic steroid therapy At one time Jenae was nearly steroid dependent. She has required steroids intermittently for years. - Recommend DEXA can with PCP. Wheezing Clear on exam today Hypertrophy of nasal turbinates ImmunoCa ps negative to all aeroallergens, total IgE 25. Repeat ImmunoCaps off steroids for several months negative to all aeroallergens with toal IgE 15. Consider aeroallergen skin testing based off results. Doing well on Astelin QD-BID. Chronic rhinitis As stated above. Vitamin D deficiency, unspecified Vitamin D level 12.1. Recommended 10,000IU daily x 3 months which Jenae has now started. - Due for recheck of Vitamin D in 10/2024. Essential (primary) hypertension BP elev ated today without symptoms of urgency or emergency. Continue serial checks and follow-up with PCP Next Appt Details Follow Up: 8 Weeks, Reason: Evaluation and Management,FASENRA Administration Provider Name:Eloy BrightTyler Fuchs , 10/09/2024 01:30:00 PM, [address] [facility], [address], [place], [address], Procedure Notes * Category Sub-Category Detail Notes FASENRA (benralizumab) Administration Dosage Subcutaneous administration: : 30 mg (30 units) Frequency Interval: every 8 weeks Location Arm: Right upper Dosing Time / Lot Number / Expiration Ti me of administration, Coy Perkins 08/07/2024 02:17:19 PM [employer] >, Lot Number [id number], Expiration Date02/2026 Reaction Local: None Post-procedural check-out: Vitals taken 30 minutes after dosing administration: bp 150/80 pulse 69 o2:99 Medication Source FASENRA Source: Buy and Bill Source Verfication:: Yes CHRISSY/MERARY/ COY Medical necessity for in-off ice administration: The patient or caregiver is not suitable , not competent or is physically unable to administer the FASENRA product FDA-labeled for self-administration for the following reason(s):: needle phobia Progress Notes * Bienvenido SANCHEZ:1950 (74 yo F)Acc No.[id number]:08/07/2024 FASENRA 2 Patient: Bran ESCOBAR Provider: REILLY Coreas :1950 A ge:74 Y S ex:Female Date:08/07/2024 Address:[address] [place], [place] [id number] Pcp:Declan Jeffers MD Subjective: * Chief Complaints: * S evere eosinophil asthma- previously OCS dependent. Continues Trelegy and Fasenra (initiated on 12/19/23). Clear improvement in asthma symptoms on new medication regimen. Previously inconsistent with Trelegy, now back to daily dosing with minimal JENNA use. ACT 15.Chronic rhinitis - takes Zyrtec and Azelastine daily. ImmunoCaps negative with total IgE 15.Vitamin D deficiency - Recent level 12.1. Now on supplementation with plans for recheck in 10/2024. * HPI: * Introduction: I had the pleasure of seeing Allison Sanchez, a 74 year old WF with a comlex past medical history including severe-persistent a sthma, hypertension, Type 2 DM, lymphedema, DVT, ? autoimmune disease here today for interval evaluation and management and to continue FASENRA treatment. She is with her for today's visit. Since last visit, she has been doing well with no interval JENNA use. Unfortunately, she is one weelk behind on dosing today as it was rescheduled due to cataract surgery. Because of this, Jenae does report more noticeable shortness of breath with exertion and 1 nighttime waking this past week. SHe did not treat with JENNA. ACT 15 today. She has been consistent with Trelegy since last visit. She is still very pleased with her progress on Fasenra. Prior visit, had reported increased coughing x 4 weeks, but was not taking Trelegy daily only when I need it a few times a month and not using JENNA for cough. She is in n eed of montelukast refill on montelukast. Initial evaluation was in October 2023. Jenae presented with c oughing and visible shortness of breath with audible wheezing. She was started on Trelegy and treated with OCS x 5 days. Initially, she felt better after completing her steroids. Previously had stopped taking Trelegy and was using JENNA multiple times per day. T relegy was restarted and she still required JENNA 1-2 times per day. Her and her report this has been ongoing for 4-5 years, requiring multiple rounds of OCS due to shortness of breath and wheezing. Zackary portillo was evaluated by flowers salesperson Dr. Phillips in 05/2023, reports breathing tests in office and was ordered for more tests but she never went back. P er note in binder from Dr. Phillips, 05/28/23, prescibed prednisone with prescription for Breztri and orders for PFTs, 6 minute-walk test and labs. She was re- evaluated by Dr. Phillips on 12/12/23, and in agreement to start Fasenra. She had full PFTs on 09/18/2023, showing reversibility. Biologic workup ordered after initial visit showed abs eosinophil count of 1100. Repeat CBC showed absolute eosinophil count of 1200. Prior treatment consisted of nebulizer PRN, albuterol inhaler 2-3 times per day and Breztri.She previously had RSV, COVID, and PNA all within a few months and required steroids for almost 9 months. Fasenra was initiated on 12/19/23. Repeat CBC showed abs eos count of 0. Her and are very pleased with her progress. No complaints today. Jenae reports allergies in Spring, Fall and Winter. Current symptoms consist of nasal congestion, rhinorrhea, sneezing, itchy/watery eyes. Descriptors of her upper airways symptoms are outlined below. Current treament consists of Zyrtec daily. She has never undergone allergy skin testing or received allergy immunotherapy. ImmunoCaps were ordered and were negative to all aeroallergens. Zackary portillo does admit to frequent antibiotics for my lungs. Reports PNA vaccine last year. History is often vague and unclear. Zackary portillo reports a rash after pencillin ingestion and unknown reaction to sulfa. Continues avoidance of both. Jenae reports a cardiac catheterization in 09/2023 with with normal results. This was ordered as she had 2 surgical proecedures for DVT. Clot was successfully removed after second procedure. Today, she reports no fevers, chills, night sweats or other constitutional symptoms. The patient is here for scheduled immunotherapy with FASENRA. Please see the attached specialty form regarding the specifics of the administration of this medication. As per our protocol, they must undergo a screening health questionnaire (medication changes, reaction(s) to last immunotherapy dose(s), current health status, ACT (if appropriate), self-injectable epinephrine on patient(?) and peak flow (if appropriate)). Also, the patient must wait in our office under direct observation of physician and staff for 30 minutes a fter receiving this medication thereafter. Furthermore, every patient must have an epinephrine pen (self-injectable) with them at all times given the risk of anaphylaxis with FASENRA. * ROS: A LLERGY: Positive p er the HPI and history, otherwise unremarkable.?runny nose Y es. s cratchy throat Y es. i tchy eyes Y es. e ar fullness?No. s inus congestion Y es. S PECIAL SENSES: Positve for n one. c ataracts N o. g laucoma?No. l oss of hearing N o. i tching in ears N o. r inging in ears N o.?loss of balance N o. l oss of smell N o. d ry eyes N o. e xcessive tearing No. i tching eyes Y es. l oss of taste N o. c onjunctivitis N o. e ar infections N o. C ONSTITUTIONAL: weight gain Y es. l oss of appetite N o. f ever?No. w eakness Y es. w eight loss N o. f atigue Y es. n ight sweats?Yes. P ositive for n one. E NT: cold Y es. c ough Y es. e pistaxis N o.?hearing loss N o. c hange in voice N o. s ore throat N o. r inging in ears?No. s inus pain N o. P ositive p er the HPI and history, otherwise unremarkable. R ESPIRATORY: shortness of breath Y es. c hest pain Y es. c hest congestion Y es. c ough Y es. P ositive p er the HPI and history, otherwise unremakable. O PHTHALMOLOGY: diminished vision N o. e ye irritation Y es. d rainage from eyes N o. b lurring of vision N o. s easonal eye sx N o. P ositive for p er the HPI and history, otherwise unremarkable. i tching Y es. s ensitivity to light N o. d ischarge N o. w atering Y es. s welling of the eyelids?No. r edness Y es. E NDOCRINOLOGY: fatigue Y es. p olydipsia Y es. p olyuria Y es. w eight loss N o. s leep disturbance Y es. c old intolerance N o. h eat intolerance Y es. d iabetes Y es. P ositive for n one. C ARDIOLOGY: chest pain Y es. p alpitations Y es. l eg edema?Yes. d izziness Y es. s hortness of breath Y es. P ositive for n one.? G ASTROENTEROLOGY: dysphagia N o. a bdominal pain N o. n ausea?No. v omiting N o. c onstipation N o. d iarrhea N o. b lood in stool?No. i ndigestion N o. h emorrhoids N o. P ositive for n one. ? U ROLOGY: difficulty urinating N o. b lood in urine N o. f requent urination Y es. u rinary incontinence N o. r ecurrent UTI N o. P ositive for n one. D ERMATOLOGY: rash Y es. m ole Y es. l umps N o. d ry or sensitive skin Y es. h bree (urticaria) N o. a cne N o. s kin cancer?No. P ositive for p er the HPI and history, otherwise unremakable. N EUROLOGY: headache N o. t ingling numbness Y es. s eizures N o. i nsomnia Y es. m hattie loss N o. d izziness Y es. g ait abnormality Y es. P ositive for n one. H EMATOLOGY/LYMPH: Positive for n one. M USCULOSKELETAL: joint swelling Y es. j oint pain Y es. l eg cramps Y es. j oint stiffness Y es. s ciatica Y es. o steoporosis N o. f racture N o. c arpal tunnel N o. g out N o. P ositive for n one. ? P SYCHOLOGY: high stress level Y es. d epression N o. s leep disturbances Y es. s uicidal ideation N o. e ating disorder N o. m ental or physical abuse N o. a nxiety Y es. P ositive for n one. F EMALE REPRODUCTIVE: heavy periods N o. h ot flashes Y es. a bnormal vaginal discharge N o. s exually active N o. i nfertility N o. f requent yeat infections N o. p elvic pain N o. b reast pain N o. n ipple discharge No. A re you ? N o. A re you planning on a future pregancy? N o. ? A ll other review of systems per the HPI and history, otherwise unremarkable. * Medical History: * Surgical History: T onsil taken out 10/16/1958Tabularization 06/18/1976Hysterectomy partial had fibroids. 06/18/1978Breast cancer Left Breast removed 04/18/2001heart cath 4cataract removal 07/31/2024 * Hospitalization/Major Diagno stic Procedure: C hronic Lymadeama left arm 04/18/2001had a infection in left arm Strep Cellulitis 04/18/2011RSV Asthma with exacerbation 2rsv, covid, and flu 06/18/2022 * Family History: F ather: , Yes, diagnosed with Cancer. M other: , Yes, diagnosed with Heart Disease. P aternal Grand Father: Yes. P aternal Grand Mother: Yes. M aternal Grand Father: Yes. M aternal Grand Mother: Yes. S iblings: Yes. C hildren: Yes. There is no other family history of cancer, CF, diabetes, emphysema or heart disease. * Social History: M arital Status What is your marital status? m arried A lcohol Screening Do you ever drink alcoholic beverages? N o S moking Have you ever smoked tobacco: n ever smoked Are you a : n ever smoker R ecreational drug use Have you ever used recreational drugs? N o D etails on consumption of certain products? Do you regularly consume products with aspartame; Equal or NutraSweet? N o Do you regularly consume products with artificial coloring??Yes Have you ever noticed worsening of your rash with these food items? N o E xercise What kind(s) of exercise do you perform regularly? o ther How often do you perform this exercise? l ess than once per year A re any of the following personal care products containing fragrance, dye or preservatives used regularly? Shampoo: Y es Conditioner: Y es Soap: Y es Laundry Detergent: Y es Fabric Softener: Y es Deodorant: Y es Perfume, cologne, after shave: Y es Air freshners or other scented products: Y es Hair coloring dyes or rinses: Y es O ccupation Are you currenly employed? N o Have you had any job with high exposure to fumes, chemicals, dust or other noxious substances? N o Are you currently a student? N o E nvironmental History Living environment: p rivate home Where is the home located? n ear any major factories or industries Age of home: 8 2 How long have you lived there? 5 years or more How many people live in the home? 2 H ome description Basement: Y es Any water damage in basement? N o Smokers in the home? N o Smokers outside the home? N o Air Conditioning? Y es Central Air? Y es Forced air heating? Y es Gas or electric? g as Fireplace? N o Wood burning stove? N o Do you vacuum the home? Y es Air purification systems? N o Pillow and mattress dust-proof encasings? N o Do you use a humidifier? N o Do you own any pets? N o Fabric softeners used? Y es Plants in the home? N o Is there carpeting in your bedroom? Y es Age of carpet? 5 0 Do you have [id number]-im-[id number] carpeting? Y es What is the age of your carpeting? 5 0 What is the age of your mattress (years)? 2 What material(s) are used to manufacture your bedding and pillow? s ynthetic,natural fiber (e.g. cotton) What is the age of your pillow (years)? 2 What material are your bedding items made of? n atural fiber (e.g. cotton) Do you sleep with quilts or blankets or a duvet? Y es What material? n atural fiber (e.g. cotton) T obacco Control (Standard) Tobacco use: N onsmoker * Medications: T akingAEROCHAMBER MDI SPACER - MOUTHPIECE (ADULT) N/A Spacer for MDI use As directed PO Per asthma action plan Albuterol Sulfate HFA 108 (90 Base) MCG/ACT Aerosol Solution 2 puffs as needed Inhalation every 4 hrs Trelegy Ellipta 200-62.5-25 MCG/ACT Aerosol Powder Breath Activated 1 puff Inhalation Once a day Fasenra 30 MG/ML Solution Prefilled Syringe 1 null Subcutaneous Azelastine HCl 137 MCG/SPRAY Solution 2 sprays in each nostril Nasally Twice a day Montelukast Sodium 10 MG Tablet 1 tablet Orally at night Valsartan 40 MG Tablet 1 tablet Orally Twice a day Plavix 75 MG Tablet 1 tablet Orally Once a day hydroCHLOROthiazide 50 MG Tablet 1 tablet in the morning Orally Once a day Cetirizine HCl 10 MG Tablet 1 tablet Orally Once a day Trelegy Ellipta 200 MCG-62.5 MCG-25 MCG/INH POWDER 1 PUFF(S) INHALED ONCE A DAY , Notes to Pharmacist: *Please review and pick correct strength-formulation from [employer] options. If intended option is not shown, discontinue and re-order from Quick Search*glipiZIDE 10 MG Tablet 1 tab(s) orally once a day Diclofenac Sodium 75 MG Tablet Delayed Release 1 tab(s) orally 2 times a day Levothyroxine Sodium 75 MCG Tablet 1 tab(s) orally once a day Maxzide 50 MG-75 MG TABLET 1 TAB(S) ORALLY ONCE A DAY , Notes to Pharmacist: *Please review and pick correct strength-formulation from [employer] options. If intended option is not shown, discontinue and re-order from Quick Search*NovoLOG FlexPen 100 UNIT/ML Solution Pen-injector as directed subcutaneously 3 times a day (before meals) Lantus 100 UNIT/ML Solution 0 subcutaneously Aspirin 81 MG Tablet Delayed Release 1 tab(s) orally once a day Vitamin D3 250 MCG (44874 UT) Capsule 1 capsule Orally Once a day Take with FoodTaking AEROCHAMBER MDI SPACER - MOUTHPIECE (ADULT) N/A Spacer for MDI use As directed PO Per asthma action plan Taking Albuterol Sulfate HFA 108 (90 Base) MCG/ACT Aerosol Solution 2 puffs as needed Inhalation every 4 hrs Taking Trelegy Ellipta 200-62.5-25 MCG/ACT Aerosol Powder Breath Activated 1 puff Inhalation Once a day Taking Fasenra 30 MG/ML Solution Prefilled Syringe 1 null Subcutaneous Taking Azelastine HCl 137 MCG/SPRAY Solution 2 sprays in each nostril Nasally Twice a day Taking Montelukast Sodium 10 MG Tablet 1 tablet Orally at night Taking Valsartan 40 MG Tablet 1 tablet Orally Twice a day Taking Plavix 75 MG Tablet 1 tablet Orally Once a day Taking hydroCHLOROthiazide 50 MG Tablet 1 tablet in the morning Orally Once a day Taking Cetirizine HCl 10 MG Tablet 1 tablet Orally Once a day Taking Trelegy Ellipta 200 MCG-62.5 MCG-25 MCG/INH POWDER 1 PUFF(S) INHALED ONCE A DAY , Notes to Pharmacist: *Please review and pick correct strength-formulation from [employer] options. If intended option is not shown, discontinue and re-order from Quick Search*Taking glipiZIDE 10 MG Tablet 1 tab(s) orally once a day Taking Diclofenac Sodium 75 MG Tablet Delayed Release 1 tab(s) orally 2 times a day Taking Levothyroxine Sodium 75 MCG Tablet 1 tab(s) orally once a day Taking Maxzide 50 MG-75 MG TABLET 1 TAB(S) ORALLY ONCE A DAY , Notes to Pharmacist: *Please review and pick correct strength-formulation from [employer] options. If intended option is not shown, discontinue and re-order from Quick Search*Taking NovoLOG FlexPen 100 UNIT/ML Solution Pen-injector as directed subcutaneously 3 times a day (before meals) Taking Lantus 100 UNIT/ML Solution 0 subcutaneously Taking Aspirin 81 MG Tablet Delayed Release 1 tab(s) orally once a day Taking Vitamin D3 250 MCG (29290 UT) Capsule 1 capsule Orally Once a day Take with FoodNot-Taking/PRNZYRTEC 10mg tablet 1 tablet PO QD ALBUTEROL 2.5 mg/3 mL (0.083%) solution 3 mL by nebulizer every 6 hours Albuterol Sulfate HFA 108 (90 Base) MCG/ACT Aerosol Solution 1 puff as needed Inhalation every 4 hrs Levothyroxine Sodium 75 MCG Tablet 1 tablet in the morning on an empty stomach Orally Once a day TRELEJEWEL ELLIPTA 200 mcg-62.5 mcg-25 mcg/inh powder 1 puff(s) inhaled once a day GLIPIZIDE 10 mg tablet 1 tab(s) orally once a day VALSARTAN 80 mg tablet 1 tab(s) orally once a day CLOPIDOGREL 75 mg tablet 1 tab(s) orally once a day LORAZEPAM 0.5 mg tablet 1 tab(s) orally every 8 hours DICLOFENAC sodium 75 mg delayed release tablet 1 tab(s) orally 2 times a day LEVOTHYROXINE 75 mcg (0.075 mg) tablet 1 tab(s) orally once a day MAXZIDE 50 mg-75 mg tablet 1 tab(s) orally once a day NOVOLOG FLEXPEN 100 units/mL solution as directed subcutaneously 3 times a day (before meals) LANTUS 100 units/mL solution 0 subcutaneously ASPIRIN 81 mg delayed release tablet 1 tab(s) orally once a day BREZTRI AEROSPHERE 160 mcg-4.8 mcg-9 mcg/inh aerosol 2 puff(s) inhaled 2 times a day PREDNISONE 20 mg tablet 3 tab(s) orally once a day to start tomorrow, 10/25/23BUDESONIDE 0.25 mg/2 mL suspension 2 mL by nebulizer 2 times a day ZyrTEC Allergy 10 MG Tablet 1 tablet PO QD Albuterol Sulfate (2.5 MG/3ML) 0.083% Nebulization Solution 3 mL by nebulizer every 6 hours Breztri Aerosphere 160 MCG-4.8 MCG-9 MCG/INH AEROSOL 2 PUFF(S) INHALED 2 TIMES A DAY , Notes to Pharmacist: *Please review and pick correct strength-formulation from [employer] options. If intended option is not shown, discontinue and re-order from Quick Search*Valsartan 80 MG Tablet 1 tab(s) orally once a day Clopidogrel Bisulfate 75 MG Tablet 1 tab(s) orally once a day LORazepam 0.5 MG Tablet 1 tab(s) orally every 8 hours PROAIR HFA 90 MCG/INH AEROSOL 2 PUFF(S) INHALED EVERY 6 HOURS , Notes to Pharmacist: *Please review for potential replacement for e-prescription and drug interaction check*predniSONE 20 MG Tablet 3 tab(s) orally once a day Airsupra 90 MCG-80 MCG/INH AEROSOL 2 INH INHALED 4 TIMES A DAY , Notes to Pharmacist: *Please review and pick correct strength-formulation from [employer] options. If intended option is not shown, discontinue and re-order from Quick Search*Budesonide 0.25 MG/2ML Suspension 2 mL by nebulizer 2 times a day Medication List reviewed and reconciled with the patientNot-Taking/PRN ZYRTEC 10mg tablet 1 tablet PO QD Not-Taking/PRN ALBUTEROL 2.5 mg/3 mL (0.083%) solution 3 mL by nebulizer every 6 hours Not-Taking/PRN Albuterol Sulfate HFA 108 (90 Base) MCG/ACT Aerosol Solution 1 puff as needed Inhalation every 4 hrs Not-Taking/PRN Levothyroxine Sodium 75 MCG Tablet 1 tablet in the morning on an empty stomach Orally Once a day Not- Taking/PRN TRELEGY ELLIPTA 200 mcg-62.5 mcg-25 mcg/inh powder 1 puff(s) inhaled once a day Not-Taking/PRN GLIPIZIDE 10 mg tablet 1 tab(s) orally once a day Not-Taking/PRN VALSARTAN 80 mg tablet 1 tab(s) orally once a day Not-Taking/PRN CLOPIDOGREL 75 mg tablet 1 tab(s) orally once a day Not-Taking/PRN LORAZEPAM 0.5 mg tablet 1 tab(s) orally every 8 hours Not-Taking/PRN DICLOFENAC sodium 75 mg delayed release tablet 1 tab(s) orally 2 times a day Not-Taking/PRN LEVOTHYROXINE 75 mcg (0.075 mg) tablet 1 tab(s) orally once a day Not-Taking/PRN MAXZIDE 50 mg-75 mg tablet 1 tab(s) orally once a day Not-Taking/PRN NOVOLOG FLEXPEN 100 units/mL solution as directed subcutaneously 3 times a day (before meals) Not-Taking/PRN LANTUS 100 units/mL solution 0 subcutaneously Not-Taking/PRN ASPIRIN 81 mg delayed release tablet 1 tab(s) orally once a day Not-Taking/PRN BREZTRI AEROSPHERE 160 mcg-4.8 mcg-9 mcg/inh aerosol 2 puff(s) inhaled 2 times a day Not-Taking/PRN PREDNISONE 20 mg tablet 3 tab(s) orally once a day to start tomorrow, 10/25/23Not-Taking/PRN BUDESONIDE 0.25 mg/2 mL suspension 2 mL by nebulizer 2 times a day Not-Taking/PRN ZyrTEC Allergy 10 MG Tablet 1 tablet PO QD Not-Taking/PRN Albuterol Sulfate (2.5 MG/3ML) 0.083% Nebulization Solution 3 mL by nebulizer every 6 hours Not-Taking/PRN Breztri Aerosphere 160 MCG-4.8 MCG-9 MCG/INH AEROSOL 2 PUFF(S) INHALED 2 TIMES A DAY , Notes to Pharmacist: *Please review and pick correct strength-formulation from [employer] options. If intended option is not shown, discontinue and re-order from Quick Search*Not-Taking/PRN Valsartan 80 MG Tablet 1 tab(s) orally once a day Not-Taking/PRN Clopidogrel Bisulfate 75 MG Tablet 1 tab(s) orally once a day Not-Taking/PRN LORazepam 0.5 MG Tablet 1 tab(s) orally every 8 hours Not- Taking/PRN PROAIR HFA 90 MCG/INH AEROSOL 2 PUFF(S) INHALED EVERY 6 HOURS , Notes to Pharmacist: *Please review for potential replacement for e-prescription and drug interaction check*Not-Taking/PRN predniSONE 20 MG Tablet 3 tab(s) orally once a day Not-Taking/PRN Airsupra 90 MCG-80 MCG/INH AEROSOL 2 INH INHALED 4 TIMES A DAY , Notes to Pharmacist: *Please review and pick correct strength-formulation from [employer] options. If intended option is not shown, discontinue and re-order from Quick Search*Not-Taking/PRN Budesonide 0.25 MG/2ML Suspension 2 mL by nebulizer 2 times a day Medication List reviewed and reconciled with the patient * Allergies: C ODEINE,: hallucinationsEmpagliflozin: difficulty swallowingLisinopril: coughSITagliptin: difficulty swallowingSulfamethoxazole: rashErythromycin Base: chest painPenicillin: rashJANUVIA SHOT: trouble breathingJardiance: throat closingVRANYST: mouth swellingno[Allergies Verified] Objective: * Vitals: B P:158/71mm Hg, HR:74/min, Pulse Oximetry:98%, ACT:15, Ht: 61 in, Wt: 233.4 lbs, BMI:44.1Index. * Examination: G eneral examination: General appearance: p leasant, well-developed, well-nourished, female, in no apparent distress. HEENT: p upils equal, round, and reactive to light and accommodation, conjunctiva are injected bilaterally, no tenderness to palpation of the sinuses, TM's without evidence of acute infection, turbinates 2+ swollen and pale inferiorly bilaterally, clear rhinorrhea is present, no polyps noted, no septal perforation, posterior oropharynx is erythematous and cobblestoning is present, erythema on pharyngeal wall, no exudates, no tongue swelling, and uvula is midline. Oral cavity: n ormal, no lesions. Breasts : n ot performed. Heart: R RR, S1-S2, no murmurs, no rubs, no gallops. Lungs: c lear to auscultation in all lung damon today., no wheezes, no crackles, no rhonchi. Neurologic exam: u nremarkable. Back: n ormal. Extremities: n ormal ROM, no clubbing, no cyanosis, no edema. Genitalia: n ot performed. Assessment: * Assessment: 1. S evere persistent asthma, uncomplicated - J45.50 (Primary) 2 . 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 P ersonal history of systemic steroid therapy - Z92.241 4 . W heezing - R06.2 5 . H ypertrophy of nasal turbinates - J34.3 6 . C hronic rhinitis - J31.0 7 . V itamin D deficiency, unspecified - E55.9 8 . E ssential (primary) hypertension - I10 Plan: * Treatment: 2. E osinophilic asthma Notes: The patient has severe asthma with an eosinophilic phenotype. The patient has had inadequate control of asthma symptoms after a minimum of 3 months of compliant use of inhaled corticosteriods and long-acting beta2-agonist or inhaled corticosteroids and long-acting anti-muscarinic antagonist. The patient has had an eosinophil count in the past 90 days or 12 months as documented in this medical record, and the medical staff has assessed the patient for the medical appropriateness for a varicella vaccination (recommended for patients age 50 or older). - Fasenra given today and tolerated without adverse effect. - Completed Shingles vaccine series. 3. P ersonal history of systemic steroid therapy Notes: At one time Jenae was nearly steroid dependent. She has required steroids intermittently for years. - Recommend DEXA can with PCP. 4. W hepennieing Continue AEROCHAMBER MDI SPACER - MOUTHPIECE (ADULT) Spacer for MDI use, N/A, As directed, PO, Per asthma action plan, 30 days, 1, Refills 11; C ontinue ALBUTEROL solution, 2.5 mg/3 mL (0.083%), 3 mL, by nebulizer, every 6 hours; C ontinue Albuterol Sulfate HFA Aerosol Solution, 108 (90 Base) MCG/ACT, 2 puffs as needed, Inhalation, every 4 hrs, 30 days, 1, Refills 0; C ontinue Trelegy Ellipta Aerosol Powder Breath Activated, 200-62.5-25 MCG/ACT, 1 puff, Inhalation, Once a day, 90 days, 3, Refills 1; R efill Montelukast Sodium Tablet, 10 MG, 1 tablet, Orally, at night, 90 days, 90, Refills 1. Notes: Clear on exam today 5. H ypertrophy of nasal turbinates Continue ZYRTEC tablet, 10mg, 1 tablet, PO, QD; C ontinue Azelastine HCl Solution, 137 MCG/SPRAY, 2 sprays in each nostril, Nasally, Twice a day, 30 days, 1, Refills 1. Notes: ImmunoCaps negative to all aeroallergens, total IgE 25. Repeat ImmunoCaps off steroids for several months negative to all aeroallergens with toal IgE 15. Consider aeroallergen skin testing based off results. Doing well on Astelin QD-BID. 6. C hronic rhinitis Notes: As stated above. 7. V itamin D deficiency, unspecified Continue Vitamin D3 Capsule, 250 MCG (08041 UT), 1 capsule, Orally, Once a day Take with Food. Notes: Vitamin D level 12.1. Recommended 10,000IU daily x 3 months which Jenae has now started. - Due for recheck of Vitamin D in 10/2024. 8. E ssential (primary) hypertension Notes: BP elevated today without symptoms of urgency or emergency. Continue serial checks and follow-up with PCP * Procedures: F ASENRA (benralizumab) Administration: Dosage S ubcutaneous administration: 3 0 mg (30 units) Frequency I nterval e very 8 weeks Location A rm R ight upper Dosing Time / Lot Number / Expiration T hyacinth of administration, Coy Perkins 08/07/2024 02:17:19 PM [employer] >, Lot Number [id number], Expiration Date02/2026. Reaction L ocal N one Post-procedural check-out: V itals taken 30 minutes after dosing administration: bp 150/80 p ulse 69 o2:99. Medication Source F ASENRA Source B uy and Bill S ourkat Verfication: Y es CHRISSY/MERARY/COY Medical necessity for in-rn physician office: T he patient or caregiver is not suitable, not competent or is physically unable to administer the FASENRA product FDA-labeled for self-administration for the following reason(s): n eedle phobia * Procedure Codes: 9 6160 PT-FOCUSED HLTH RISK [id number] DOC MEDS VERIFIED W/PT OR [id number] Inj., benralizumab, 1 mg, Units: 30.00 , Modifiers: JZ 56908 THER/PROPH/DIAG INJ, SC/IM * Preventive Medicine: Counseling: D iet a s tolerated. E xercise C ontinue activity as usual, Consider JENNA use PRN, prior to exercise as per the asthma action plan. M edication instruction: U se prescribed inhaler(s) with spacer. If taking a inhaled corticorsteroid rinse out mouth after use and brush teeth. Oral hygiene reviewed at length., [place] teeth or rinse out mouth after the use of oral, inhaled steroids to prevent oral thrush, Use 2 puffs of JENNA with spacer prior to exercise and environmental exposures known to cause wheezing, Use 2 inhalations of JENNA DPI prior to exercise and environmental exposures known to cause wheezing, Nasal steroid/antihistamine instruction: avoid septum. E ducation: G ENERAL EDUCATION:, Our staff spent an additional 30 minutes in direct contact with the patient educating them on their current diagnoses and proper treatment and prevention of symptoms and the proper use of medications, ASTHMA EDUCATION:, Our staff discussed pulmonary function testing and results with the patient/family, Our staff reviewed the patient's asthma action plan, Our staff trained the patient on the appropriate use of MDI/DPI/Respimat/spacer/nebulizer treatments for future use. P atient education material sent to portal? Y es C are goal follow up plan BMI management provided Y es Above Normal BMI Follow-up D ietary management education, guidance, and counseling B P Management: FIRST HYPERTENSIVE BP READING FOLLOW-UP PLAN: F ollow-up 1 month REFERRAL TO ALTERNATIVE / PRIMARY CARE PROVIDER: Sera buitrago to general practitioner * Follow Up: 8 Weeks (Reason: Evaluation and Management,FASENRA Administration) * Billing Information: * Visit Code: 39101 Office Visit, Est Pt., Level 4. Modifiers: 25 * Procedure Codes: 65919 PT-FOCUSED HLTH RISK ASSMT. G8427 DOC MEDS VERIFIED W/PT OR RE. J0517 Inj., benralizumab, 1 mg. Units: 30.00. Modifiers: KELLIE 76210 THER/PROPH/DIAG INJ, SC/IM. * [employer] Sign off status: Completed true * Provider: REILLY Coreas Date: 0 08/07/2024 Generated for Shabbir boswell/Bradley/eTransmitting on: 0 10/08/2024 08:22 AM CDT History and Physical Notes * HPI (History of Present Illness) Category Sub-Category Detail Notes Category Notes *Introduction I had the pleasure of seeing Bran Sanchez, a 74 year old WF with a comlex past medical history including severe-persistent asthma, hypertension, Type 2 DM, lymphedema, DVT, ? autoimmune disease here today for interval evaluation and management and to continue FASENRA treatment. She is with her for today's visit. Since last visit, she has been doing well with no interval JENNA use. Unfortunately, she is one weelk behind on dosing today as it was rescheduled due to cataract surgery. Because of this, Jenae does report more noticeable shortness of breath with exertion and 1 nighttime waking this past week. SHe did not treat with JENNA. ACT 15 today. She has been consistent with Trelegy since last visit. She is still very pleased with her progress on Fasenra. Prior visit, had reported increased coughing x 4 weeks, but was not taking Trelegy daily only when I need it a few times a month and not using JENNA for cough. She is in need of montelukast refill on montelukast. Initial evaluation was in October 2023. Jenae presented with coughing and visible shortness of breath with audible wheezing. She was started on Trelegy and treated with OCS x 5 days. Initially, she felt better after completing her steroids. Previously had stopped taking Trelegy and was using JENNA multiple times per day. Trelegy was restarted and she still required JENNA 1-2 times per day. Her and her report this has been ongoing for 4-5 years, requiring multiple rounds of OCS due to shortness of breath and wheezing. She was evaluated by flowers salesperson Dr. Phillips in 05/2023, reports breathing tests in office and was ordered for more tests but she never went back. Per note in binder from Dr. Phillips, 05/28/23, prescibed prednisone with prescription for Breztri and orders for PFTs, 6 minute-walk test and labs. She was re-evaluated by Dr. Phillips on 12/12/23, and in agreement to start Fasenra. She had full PFTs on 09/18/2023, showing reversibility. Biologic workup ordered after initial visit showed abs eosinophil count of 1100. Repeat CBC showed absolute eosinophil count of 1200. Prior treatment consisted of nebulizer PRN, albuterol inhaler 2-3 times per day and Breztri.She previously had RSV, COVID, and PNA all within a few months and required steroids for almost 9 months. Fasenra was initiated on 12/19/23. Repeat CBC showed abs eos count of 0. Her and are very pleased with her progress. No complaints today. Jenae reports allergies in Spring, Fall and Winter. Current symptoms consist of nasal congestion, rhinorrhea, sneezing, itchy/watery eyes. Descriptors of her upper airways symptoms are outlined below. Current treament consists of Zyrtec daily. She has never undergone allergy skin testing or received allergy immunotherapy. ImmunoCaps were ordered and were negative to all aeroallergens. She does admit to frequent antibiotics for my lungs. Reports PNA vaccine last year. History is often vague and unclear. She reports a rash after pencillin ingestion and unknown reaction to sulfa. Continues avoidance of both. Jenae reports a cardiac catheterization in 09/2023 with with normal results. This was ordered as she had 2 surgical proecedures for DVT. Clot was successfully removed after second procedure. Today, she reports no fevers, chills, night sweats or other constitutional symptoms The patient is here for scheduled immunotherapy with FASENRA. Please see the attached specialty form regarding the specifics of the administration of this medication. As per our protocol, they must undergo a screening health questionnaire (medication changes, reaction(s) to last immunotherapy dose(s), current health status, ACT (if appropriate), self-injectable epinephrine on patient(?) and peak flow (if appropriate)). Also, the patient must wait in our office under direct observation of physician and staff for 30 minutes after receiving this medication thereafter. Furthermore, every patient must have an epinephrine pen (self-injectable) with them at all times given the risk of anaphylaxis with FASENRA. Examination Category Sub-Category Detail Notes Category Not es General examination HEENT: pupils equal , round, and reactive to light and accommodation, conjunctiva are injected bilaterally, no tenderness to palpation of the sinuses, TM's without evidence of acute infection, turbinates 2+ swollen and pale inferiorly bilaterally, clear rhinorrhea is present, no polyps noted, no septal perforation, posterior oropharynx is erythematous and cobblestoning is present, erythema on pharyngeal wall, no exudates, no tongue swelling, and uvula is midline Heart: RRR, S1-S2, no murmu rs, no rubs, no gallops Lungs: clear to auscultatio n in all lung damon today., no wheezes, no crackles, no rhonchi Extremities: normal ROM, no clubb ing, no cyanosis, no edema General appearance: pleasant, well-devel oped, well-nourished, female, in no apparent distress Neurologic exam: unremarkable Oral cavity: normal, no lesions Breasts : not performed Back: normal Genitalia: not performed
--- OUTSIDE RECORDS SUMMARY | 2024-10-08 08:22 | XMS_ITS ---
Author Organization [facility] [place] ([address]) Address [address] [place] [address] Care Team Providers Care Die Designer Name Role Phone Declan Jeffers MD Primary Care Provider Unavailab Apple Royal Unavailable [phone] Jelena Canales PA-C Unavailable REASON FOR VISIT fasenra Encounters Encounter Location Date Provider Diagnosis [facility] [address] [place] [address] 07/31/2024 Apple Astudillo Plan Of Treatment Next Appt Details Provider Name:Eloy Fuchs , 10/09/2024 01:30:00 PM, [address], [place], [address], Progress Notes * Ang SANCHEZLeoOB:1950 (74 yo F)Acc No.[id number]:07/31/2024 FASENRA 2 Patient: Bran ESCOBAR Provider: CLAYTON CoreasP-BC :1950 A ge:74 Y S ex:Female Date:07/31/2024 Address:[address] [place], [place] [id number] Pcp:Declan Jeffers MD Subjective: * Chief Complaints: * 1 . Fasenra. * Medical History: Objective: * Vitals: Assessment: Plan: * Treatment: * Billing Information: * Visit Code: * Procedure Codes: * Electronic signature of REILLY Connelly on 10/08/2024 at 08:22 AM CDT Sign off status: Pending * Provider: REILLY Coreas Date: 0 07/31/2024 Generated for Shabbir boswell/Bradley/Ashley on: 0 10/08/2024 08:22 AM CDT
--- OUTSIDE RECORDS SUMMARY | 2024-10-08 08:22 | XMS_ITS | Patient Health Record ---
Author Organization [facility], [facility] [employer] [place] ([address]) Address [address] [place] [address] Care Team Providers Care Supervisor Cemetery Workers Name Role Phone Declan Jeffers MD Primary Care Provider Unavailab le Apple Astudillo Unavailable [phone] Parker PRYOR, Jelena Unavailable Unavailable Sheyla Avendano Unavailable [phone] [facility], Provider Unavailable Unavailab le Allergies Allergen (clinical drug ingredient) Drug/Non Drug [...] sitagliptin SITagliptin difficulty swallowing Drug Allergy Active Results Component Value Reference Range Notes -Respiratory Allergens w/Tot al IgE Area 8 Reviewed date:07/22/2024 08:12:34 AM Interpretation:Normal Performing Lab:[facility], [address] [place] [address], [place], [place] [id number], Phone - [phone], Director - Cordelia Notes/Report: Class Description Levels of Specific IgE Class Description of Class ----- < 0.10 0 Negative 0.10 - 0.31 0/I Equivocal/Low 0.32 - 0.55 I Low 0.56 - 1.40 II Moderate 1.41 - 3.90 III High 3.91 - 19.00 IV Very High 19.01 - 100.00 V Very High >100.00 Very High Immunoglobulin E, Total 15 6-495 IU/mL Q772-VgC D pteronyssinus <0.10 Class 0 kU/L G248-EvK D farinae <0.10 Class 0 kU/L D644-QrB Cat Dander <0.10 Class 0 kU/L E161-CiJ Dog Dander <0.10 Class 0 kU/L H333-LaG Mouse Urine <0.10 Class 0 kU/L K553-QcC Bermuda Grass <0.10 Class 0 kU/L E564-NmB Rashard Grass <0.10 Class 0 kU/L O088-PlO Cockroach, [place] <0.10 Class 0 kU/L O309-MnB Penicillium chrysogen <0.10 Class 0 kU /L Z000-NvV Cladosporium herbarum <0.10 Class 0 kU /L C786-UxL Aspergillus fumigatus <0.10 Class 0 kU /L U366-MzG Alternaria alternata <0.10 Class 0 kU/ L Z898-IoL Maple/Bradley <0.10 Class 0 kU/L O219-BkG Bullitt, [place] <0.10 Class 0 kU/L R254-AdI [place], White <0.10 Class 0 kU/L V286-MfZ Elm, [place] <0.10 Class 0 kU/L P773-KeT [place] <0.10 Class 0 kU/L R373-CqW Maple [place] <0.10 Class 0 kU/L O003-LbH [place] <0.10 Class 0 kU/L W059-LmZ Shiv, White <0.10 Class 0 kU/L W218-JfB Pecan, [place] <0.10 Class 0 kU/L J244-BqD [place] <0.10 Class 0 kU/L A019-NwS Ragweed, Short <0.10 Class 0 kU/L Y099-ExU Thistle, [place] <0.10 Class 0 kU/L Y088-FaC Pigweed, Common <0.10 Class 0 kU/L Z540-QnW Rough [place] <0.10 Class 0 kU/L -Vitamin D, 25-Hydroxy Reviewed date:07/22/2024 08:15:26 AM Interpretation:Abnormal Performing Lab:[facility], [address], [place] [id number], Phone - [phone], Director - Kizzy Notes/Report: Vitamin D, 25-Hydroxy 12.4 30.0-100.0 ng/mL Vitamin D deficiency has been defined by the [place] of [employer] and an Endocrine Society practice guideline as a level of serum 25-OH vitamin D less than 20 ng/mL (1,2). The Endocrine Society went on to further define vitamin D insufficiency as a level between 21 and 29 ng/mL (2). 1. IOM ([place] of Medicine). 2010. Dietary reference intakes for calcium and D. [place]: The National Academies Press. 2. Daisy MF, Naty NC, Rommel SCHWAB, et al. Evaluation, treatment, and prevention of vitamin D deficiency: an Endocrine Society clinical practice guideline. JCEM. 2010; 96(7):1911-30. Spirometry Reviewed date:06/05/2024 02:56:15 PM Interpretation:Abnormal - FVL Performing Lab: Notes/Report: Abnormal - FVL SpiroPreBronchodilator_FVC 2.54 SpiroPostBronchodilator_FEF2 5_7 5 0 SpiroPreBronchodilator_FEF25_75 2 SpiroPreBronchodilator_FEV1 2 SpiroPrecentPredictionPost_F EF2 5_75 0 SpiroPrecentPredictionPost_FEV1 0 SpiroPrecentPredictionPost_F EV1 _OVER_FVC 0 SpiroPrecentPredictionPost_FVC 0 SpiroPrecentPredictionPre_FE F25 _75 117 SpiroPrecentPredictionPre_FEV1 107.5 SpiroPrecentPredictionPre_FE V1_ OVER_FVC 102.4 SpiroPrecentPredictionPre_FVC 104.1 SpiroPredicted_FEF25_75 1.71 SpiroPreBronchodilator_FEV1_ OVE R_FVC 78.71 SpiroPreBronchodilator_PEF 4.58 SpiroPostBronchodilator_FVC 0 SpiroPostBronchodilator_FEV1 0 SpiroPostBronchodilator_FEV1 _OV ER_FVC 0 SpiroPostBronchodilator_PEF 0 SpiroPredicted_FVC 2.44 SpiroPredicted_FEV1 1.86 SpiroPredicted_FEV1_OVER_FVC 76.89 SpiroPredicted_PEF 5.03 -CBC With Differential/Plate let Reviewed date:01/14/2024 01:32:12 PM Interpretation:Abnormal Performing Lab:[facility], [address], [place] [id number], Phone - [phone], [facility] Notes/Report: WBC 8.7 3.4-10.8 x10E3/uL RBC 3.74 3.77-5.28 x10E6/uL Hemoglobin 11.2 11.1-15.9 g/dL Hematocrit 34.2 34.0-46.6 % MCV 91 79-97 fL MCH 29.9 26.6-33.0 pg MCHC 32.7 31.5-35.7 g/dL RDW 12.2 11.7-15.4 % Platelets 296 150-450 x10E3/uL Neutrophils 77 Not Estab. % Lymphs 16 Not Estab. % Monocytes 6 Not Estab. % Eos 0 Not Estab. % Basos 0 Not Estab. % Neutrophils (Absolute) 6.7 1.4-7.0 x10E3/uL Lymphs (Absolute) 1.4 0.7-3.1 x10E3/uL Monocytes(Absolute) 0.5 0.1-0.9 x10E3/uL Eos (Absolute) 0.0 0.0-0.4 x10E3/uL Baso (Absolute) 0.0 0.0-0.2 x10E3/uL Immature Granulocytes 1 Not Estab. % Immature Grans (Abs) 0.1 0.0-0.1 x10E3/uL -Szzry-2-Tcpvyqxzyxh Phenoty p Reviewed date:12/11/2023 07:56:29 AM Interpretation:Normal [facility]forming Lab:[facility], [address], [place] [id number], Phone - [phone], Director - [facility] Notes/Report: Glaby-0-Mgmehnighrr, Serum 173 101-187 mg/dL Phenotype (PI) MM MM Phenotype is considered to be normal , producing normal serum levels of ldonw-1-mtwwddvs inhibitor and not associated with clinical disease. Associated A1A total serum levels in other phenotypes and their incidence in the general population are shown in the table below. Phenotype Population % function A-1-AT Conc.* Incidence % compared to MM (Typical Range) MM 86.5% 100% (96 - 189) MS 8.0% 86% (83 - 161) MZ 3.9% 61% (60 - 111) FM 0.4% 100% (93 - 191) SZ 0.3% 41% (42 - 75) SS 0.1% 64% (62 - 119) ZZ 0.05% 19% (16 - 38) FS 0.05% 70% (70 - 128) FZ Unknown 46% (44 - 88) FF Unknown Unknown *A-1-AT concentration in the homozygous MM phenotype is taken as the reference normal. Percent deficiency in each phenotype is reported relative to this reference. Ranges used to confirm phenotype. -CBC With Differential/Plate let Reviewed date:12/11/2023 03:29:10 PM Interpretation:Abnormal Performing Lab:[facility], [address] [place] [id number], Phone - [phone], Director - Kizzy Notes/Report: WBC 12.0 3.4-10.8 x10E3/uL RBC 3.66 3.77-5.28 x10E6/uL Hemoglobin 11.2 11.1-15.9 g/dL Hematocrit 33.7 34.0-46.6 % MCV 92 79-97 fL MCH 30.6 26.6-33.0 pg MCHC 33.2 31.5-35.7 g/dL RDW 12.2 11.7-15.4 % Platelets 272 150-450 x10E3/uL Neutrophils 67 Not Estab. % Lymphs 14 Not Estab. % Monocytes 7 Not Estab. % Eos 10 Not Estab. % Basos 1 Not Estab. % Neutrophils (Absolute) 8.2 1.4-7.0 x10E3/uL Lymphs (Absolute) 1.7 0.7-3.1 x10E3/uL Monocytes(Absolute) 0.8 0.1-0.9 x10E3/uL Eos (Absolute) 1.2 0.0-0.4 x10E3/uL Baso (Absolute) 0.1 0.0-0.2 x10E3/uL Immature Granulocytes 1 Not Estab. % Immature Grans (Abs) 0.1 0.0-0.1 x10E3/uL -Respiratory Allergens w/Tot al IgE Area 8 Reviewed date:10/29/2023 11:42:10 AM Interpretation:Normal Performing Lab:[facility], [address] [place] [id number], Phone - [phone], Director - Cordelia Notes/Report: Class Description Levels of Specific IgE Class Description of Class ----- < 0.10 0 Negative 0.10 - 0.31 0/I Equivocal/Low 0.32 - 0.55 I Low 0.56 - 1.40 II Moderate 1.41 - 3.90 III High 3.91 - 19.00 IV Very High 19.01 - 100.00 V Very High >100.00 Very High Immunoglobulin E, Total 25 6-495 IU/mL I015-UbW D pteronyssinus <0.10 Class 0 kU/L F701-HwH D farinae <0.10 Class 0 kU/L X259-KoT Cat Dander <0.10 Class 0 kU/L W133-ZbB Dog Dander <0.10 Class 0 kU/L N733-ZfK [place] Grass <0.10 Class 0 kU/L T579-KxW Rashard Grass <0.10 Class 0 kU/L G299-UfI Cockroach, [place] <0.10 Class 0 kU/L P719-AxZ Penicillium chrysogen <0.10 Class 0 kU /L S346-GoL Cladosporium herbarum <0.10 Class 0 kU /L O248-FeC Aspergillus fumigatus <0.10 Class 0 kU /L T568-ZdU Alternaria alternata <0.10 Class 0 kU/ L I009-XmY Maple/Bradley <0.10 Class 0 kU/L T966-SnP [place], [place] <0.10 Class 0 kU/L E298-ZaV [place], White <0.10 Class 0 kU/L S034-HwN Elm, [place] <0.10 Class 0 kU/L R181-XcP Maple [place] <0.10 Class 0 kU/L C092-BbE [place] <0.10 Class 0 kU/L Q015-DpL Shiv, White <0.10 Class 0 kU/L V441-RlI [place] <0.10 Class 0 kU/L F851-WvR Pecan, [place] <0.10 Class 0 kU/L M834-XqN [place] <0.10 Class 0 kU/L Z908-CaB Ragweed, [place] <0.10 Class 0 kU/L C436-NgU Thistle, [place] <0.10 Class 0 kU/L V648-CuN Pigweed, [place] <0.10 Class 0 kU/L X759-SlV Rough [place] <0.10 Class 0 kU/L R276-NzD Mouse Urine <0.10 Class 0 kU/L -CBC With Differential/Plate let Reviewed date:10/27/2023 11:32:10 AM Interpretation:Abnormal Performing Lab:[facility], [address] [place] [id number], Phone - [phone], Director - [facility] Notes/Report: WBC 11.6 3.4-10.8 x10E3/uL RBC 3.74 3.77-5.28 x10E6/uL Hemoglobin 11.3 11.1-15.9 g/dL Hematocrit 35.2 34.0-46.6 % MCV 94 79-97 fL MCH 30.2 26.6-33.0 pg MCHC 32.1 31.5-35.7 g/dL RDW 12.2 11.7-15.4 % Platelets 312 150-450 x10E3/uL Neutrophils 66 Not Estab. % Lymphs 16 Not Estab. % Monocytes 6 Not Estab. % Eos 10 Not Estab. % Basos 1 Not Estab. % Neutrophils (Absolute) 7.8 1.4-7.0 x10E3/uL Lymphs (Absolute) 1.9 0.7-3.1 x10E3/uL Monocytes(Absolute) 0.7 0.1-0.9 x10E3/uL Eos (Absolute) 1.1 0.0-0.4 x10E3/uL Baso (Absolute) 0.1 0.0-0.2 x10E3/uL Immature Granulocytes 1 Not Estab. % Immature Grans (Abs) 0.1 0.0-0.1 x10E3/uL Spirometry Reviewed date:12/03/2023 03:26:58 PM Interpretation:Abnormal - FVL Performing Lab: Notes/Report: Abnormal - FVL SpiroPreBronchodilator_FVC 2.62 SpiroPostBronchodilator_FEF2 5_7 5 0 SpiroPreBronchodilator_FEF25_75 1.49 SpiroPreBronchodilator_FEV1 1.92 SpiroPrecentPredictionPost_F EF2 5_75 0 SpiroPrecentPredictionPost_FEV1 0 SpiroPrecentPredictionPost_F EV1 _OVER_FVC 0 SpiroPrecentPredictionPost_FVC 0 SpiroPrecentPredictionPre_FE F25 _75 84.7 SpiroPrecentPredictionPre_FEV1 102.1 SpiroPrecentPredictionPre_FE V1_ OVER_FVC 94.9 SpiroPrecentPredictionPre_FVC 106.5 SpiroPredicted_FEF25_75 1.76 SpiroPreBronchodilator_FEV1_ OVE R_FVC 73.19 SpiroPreBronchodilator_PEF 3.24 SpiroPostBronchodilator_FVC 0 SpiroPostBronchodilator_FEV1 0 SpiroPostBronchodilator_FEV1 _OV ER_FVC 0 SpiroPostBronchodilator_PEF 0 SpiroPredicted_FVC 2.46 SpiroPredicted_FEV1 1.88 SpiroPredicted_FEV1_OVER_FVC 77.14 SpiroPredicted_PEF 5.06 Reason For Referral No Information Medications Medication SIG (Take, Route, Frequency, Duration) Notes Start Date End Date Status Montelukast Sodium 10 MG 1 tablet Orally at night for 90 days Active Azelastine HCl 137 MCG/SPRAY 2 sprays in each nostril Nasally Twice a day for 30 days Active Levothyroxine Sodium 75 MCG 1 tab(s) orally once a day Active Maxzide 50 MG-75 MG 1 TAB(S) ORALLY ONCE A DAY *Please review and pick correct strength-formul ation from [employer] options. If intended option is not shown, discontinue and re-order from Quick Search* Active Fasenra 30 MG/ML 1 null Subcutaneous for 30 days Active Trelegy Ellipta 200-62.5-25 MCG/ACT 1 puff Inhalation Once a day for 90 days Active Albuterol Sulfate HFA 108 (90 Base) MCG/ACT 2 puffs as needed Inhalation every 4 hrs for 30 days Active ALBUTEROL 2.5 mg/3 mL (0.083%) 3 mL by nebulizer every 6 hours Active Vitamin D3 250 MCG (11367 UT) 1 capsule Orally Once a day Take with Food 5 Active Lantus 100 UNIT/ML 0 subcutaneously Active Valsartan 80 MG 1 tab(s) orally once a day Not-Taking Aspirin 81 MG 1 tab(s) orally once a day Active Clopidogrel Bisulfate 75 MG 1 tab(s) orally once a day 4 Not-Taking LORazepam 0.5 MG 1 tab(s) orally every 8 hours Not-Taking Albuterol Sulfate HFA 108 (90 Base) MCG/ACT 1 puff as needed Inhalation every 4 hrs Not-Taking PROAIR HFA 90 MCG/INH 2 PUFF(S) INHALED EVERY 6 HOURS *Please review for potential replacement for e-prescription and drug interaction check* Not-Taking Levothyroxine Sodium 75 MCG 1 tablet in the morning on an empty stomach Orally Once a day Not-Taking predniSONE 20 MG 3 tab(s) orally once a day for 4 days Not-Taking TRELEGY ELLIPTA 200 mcg-62.5 mcg-25 mcg/inh 1 puff(s) inhaled once a day Not-Taking Airsupra 90 MCG-80 MCG/INH 2 INH INHALED 4 TIMES A DAY *Please review and pick correct strength-formul ation from [employer] options. If intended option is not shown, discontinue and re-order from Quick Search* Not-Taking GLIPIZIDE 10 mg 1 tab(s) orally once a day 4 Not-Taking Budesonide 0.25 MG/2ML 2 mL by nebulizer 2 times a day Not-Taking VALSARTAN 80 mg 1 tab(s) orally once a day Not-Taking ZyrTEC Allergy 10 MG 1 tablet PO QD Not-Taking Albuterol Sulfate (2.5 MG/3ML) 0.083% 3 mL by nebulizer every 6 hours Not-Taking NovoLOG FlexPen 100 UNIT/ML as directed subcutaneously 3 times a day (before meals) Active Breztri Aerosphere 160 MCG-4.8 MCG-9 MCG/INH 2 PUFF(S) INHALED 2 TIMES A DAY *Please review and pick correct strength-formul ation from [employer] options. If intended option is not shown, discontinue and re-order from Quick Search* Not-Taking ZYRTEC 10mg 1 tablet PO QD Act miguel angel AEROCHAMBER MDI SPACER - MOUTHPIECE (ADULT) N/A As directed PO Per asthma action plan for 30 days Active CLOPIDOGREL 75 mg 1 tab(s) orally once a day 4 Not-Taking LEVOTHYROXINE 75 mcg (0.075 mg) 1 tab(s) orally once a day Not-Taking Valsartan 40 MG 1 tablet Orally Twice a day Active MAXZIDE 50 mg-75 mg 1 tab(s) orally once a day Not-Taking Plavix 75 MG 1 tablet Orally Once a day Active NOVOLOG FLEXPEN 100 units/mL as directed subcutaneously 3 times a day (before meals) Not-Taking hydroCHLOROthiazide 50 MG 1 tablet in the morning Orally Once a day Active LANTUS 100 units/mL 0 subcutaneously Not-Taking Cetirizine HCl 10 MG 1 tablet Orally Once a day Active ASPIRIN 81 mg 1 tab(s) orally once a day Not-Taking Trelegy Ellipta 200 MCG-62.5 MCG-25 MCG/INH 1 PUFF(S) INHALED ONCE A DAY *Please review and pick correct strength-formul ation from [employer] options. If intended option is not shown, discontinue and re-order from Quick Search* Active BREZTRI AEROSPHERE 160 mcg-4.8 mcg-9 mcg/inh 2 puff(s) inhaled 2 times a day Not-Taking glipiZIDE 10 MG 1 tab(s) orally once a day 4 Active PREDNISONE 20 mg 3 tab(s) orally once a day for 4 days to start tomorrow, 10/25/23 4 Not-Taking Diclofenac Sodium 75 MG 1 tab(s) orally 2 times a day Active BUDESONIDE 0.25 mg/2 mL 2 mL by nebulize r 2 times a day Not-Taking LORAZEPAM 0.5 mg 1 tab(s) orally every 8 hours Not-Taking DICLOFENAC sodium 75 mg 1 tab(s) orally 2 times a day Not-Taking Immunizations Vaccine Route Administration Date Status Comme nts NOC Prevnar 13 Unknown 06/18/2021 Administered Portal I nformation Social History Tobacco Use: Social History Observation Description Date Details (start date - stop date) Never Smoker NA - NA Tobacco Control (Standard) Question Answer Notes Tobacco use: Nonsmoker Problems Problem Type SNOMED Code ICD Code Onset Dates Problem Status W/U Status Risk Notes Problem Shortness of breath (374728220) Shortness of breath (R06.02) Active confirmed Problem Wheezing (65597822) Wheezing (R06.2) Active confirmed Problem Vitamin D deficiency (64554021) Vitamin D deficiency, unspecified (E55.9) Active confirmed Problem Essential hypertension (57494719) Essential (primary) hypertension (I10) Active confirmed Problem Allergic rhinitis (86993666) Other allergic rhinitis (J30.89) Active confirmed Problem Chronic rhinitis (46088520) Chronic rhinitis (J31.0) Active confirmed Problem Uncomplicated severe persistent asthma (512628927) Severe persistent asthma, uncomplicated (J45.50) Active confirmed Problem History of systemic steroid therapy (756389497068518) Personal history of systemic steroid therapy (Z92.241) Active confirmed Problem Eosinophilic asthma (154404987) 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) Active confirmed Vital Signs Respiratory Rate 17 /min 04/10/2024 Oximetry 98 % 08/07/2024 Blood pressure diastolic 71 mm Hg 08/07/2024 Height 61 in 08/07/2024 Blood pressure systolic 158 mm Hg 08/07/2024 Weight 233.4 lbs 08/07/2024 BMI 44.1 kg/m2 08/07/2024 Encounters Encounter Location Date Provider Diagnosis LAURA Martini Nevin [address] [place] [address] 10/24/2023 Apple Astudillo [address] [address] 10/26/2023 Apple Astudillo [facility] [address] [facility] [address] [place] [address] 12/05/2023 Apple SANCHEZ [facility] [address] [place] [address] 12/18/2023 Apple Astudillo [address] [address] 01/16/2024 Apple Astudillo [facility] [address] [place] [phone] 01/30/2024 Apple Astudillo [facility] [address] [place] [phone] 07/15/2024 Apple Astudillo Other allergic rhinitis J30.89 and Vitamin D deficiency, unspecified E55.[address] [address] 07/17/2024 Apple Astudillo Vitamin D deficiency , unspecified E55.9 [facility] [address] [place] [address] 10/17/2023 Apple Astudillo [facility] [address] [place] [phone] 10/24/2023 Apple Astudillo Wheezing R06.2 ; Shortness of breath R06.02 ; Chronic cough R05.3 ; Hypertrophy of nasal turbinates J34.3 ; Chronic rhinitis J31.0 and Essential (primary) hypertension I10 [facility] [address] [place] [address] 11/29/2023 Apple Astudillo Wheezing R06.2 ; Severe persistent asthma, uncomplicated J45.50 ; Eosinophilic asthma J82.83 ; Shortness of breath R06.02 ; Chronic cough R05.3 ; Hypertrophy of nasal turbinates J34.3 ; Chronic rhinitis J31.0 and Essential (primary) hypertension I10 [facility] [address] [place] [address] 12/19/2023 Apple Astudillo Severe persistent asthma, uncomplicated J45.50 ; Eosinophilic asthma J82.83 ; Wheezing R06.2 ; Shortness of breath R06.02 ; Chronic cough R05.3 ; Hypertrophy of nasal turbinates J34.3 ; Chronic rhinitis J31.0 and Essential (primary) hypertension I10 [facility] [address] [place] [phone] 01/16/2024 Apple Astudillo Severe persistent asthma, uncomplicated J45.50 ; Eosinophilic asthma J82.83 ; Wheezing R06.2 ; Shortness of breath R06.02 ; Chronic cough R05.3 ; Hypertrophy of nasal turbinates J34.3 ; Chronic rhinitis J31.0 and Essential (primary) hypertension I10 [facility] [address] [place] [address] 02/14/2024 Sheyla Young Severe persistent asthma, uncomplicated J45.50 ; Eosinophilic asthma J82.83 ; Personal history of systemic steroid therapy Z92.241 ; Wheezing R06.2 ; Hypertrophy of nasal turbinates J34.3 ; Chronic rhinitis J31.0 and Essential (primary) hypertension I10 [facility] [address] [place] [phone] 04/10/2024 Sheyla Young Severe persistent asthma, uncomplicated J45.50 ; Eosinophilic asthma J82.83 ; Personal history of systemic steroid therapy Z92.241 ; Wheezing R06.2 ; Hypertrophy of nasal turbinates J34.3 ; Chronic rhinitis J31.0 and Essential (primary) hypertension I10 [facility] [address] [place] [address] 06/05/2024 [facility] Severe persistent asthma, uncomplicated J45.50 ; Eosinophilic asthma J82.83 ; Personal history of systemic steroid therapy Z92.241 ; Wheezing R06.2 ; Hypertrophy of nasal turbinates J34.3 ; Chronic rhinitis J31.0 ; Vitamin D deficiency, unspecified E55.9 and Essential (primary) hypertension I10 [facility] [address] [place] [phone] 08/07/2024 [facility] Severe persistent asthma, uncomplicated J45.50 ; Eosinophilic asthma J82.83 ; Personal history of systemic steroid therapy Z92.241 ; Wheezing R06.2 ; Hypertrophy of nasal turbinates J34.3 ; Chronic rhinitis J31.0 ; Vitamin D deficiency, unspecified E55.9 and Essential (primary) hypertension I10 [address] [address] 12/01/2023 Provider [employer] Wheezing R06.2 and Hypertrophy of nasal turbinates J34.3 Assessments Encounter Date Diagnosis (ICD Code) Assessment Notes Treatment Notes Treatment Clinical Notes Section Notes 10/24/2023 Shortness of breath (ICD-10 - R06.02) As stated above. 10/24/2023 Wheezing (ICD-10 - R06.2) Jenae presents today coughing and visibly short of breath with audible wheezing. Her and her report this has been ongoing for 4-5 years. She has been on/off steroids for a long time. Symptoms resolve with OCS, but return shortly after stopping. Current treatment consist of nebulizer PRN, albuterol inahler 2-3 times per day and Breztri that was started by PCP. She does admit to frequent antibiotics for my lungs. Reports PNA vaccine last year. History is often vague and unclear. Her and are unable to provide names, dates, timing of medications, providers and timing. They believe she was last on OCS 3 weeks ago. She denies fever, night sweats and other consitutional symptoms. Per Perla, this is her normal state when she is off OCS. Bilateral wheezes noted throughout all lung damon on exam today. ACT 8. - Spirometry not done today as patient had cardiac catheterization last week. Plan to obtain at follow-up. - Will start high dose Trelegy. Proper demonstration given. Instructed to brush teeth after inhalation. Samples given. Breztri to be held at this time. - AirSupra with spacer to be used in place of albuterol. Proper demonstration given. Instructed to brush teeth after inhalation. Order for spacer sent out and AirSupra sample given in office today. - AAP formulated and reviewed at length with patient and . - Nebulizer given in office with minimal improvement noted in wheezing. Instructed to take 60mg prednisone daily x 5 days. First dose given in office today. - Records to be requested from PCP, pulmonology and recent PFTs from 09/18/23. - Per recommendations from pulmonology in 05/2023, Perla was ordered for six-minute walk test, but never followed up. Strongly urged her to establish with pulmonology for further workup. - CBC, Total IgE ordered for biologic workup. Perla had labs drawn prior to starting OCS in office today. - Obtain Chest Xray if no recent. Perla reports recent Chest Xray, though cannot remember who ordered. - Instructed to seek immediate medical attention for any worsening of symptoms or if symptoms do not improve in the next 1-2 days. - Follow-up in 1 month for E&M, spirometry challenge 11/29/2023 Wheezing (ICD-10 - R06.2) Last visit, Jenae presented visibly short of breath with audible wheezing. Her and her report this has been ongoing for 4-5 years. She has been on/off steroids for a long time. Symptoms resolve with OCS, but return shortly after stopping. Trelegy was started after last visit, but patient reports stopping 1-2 weeks ago and is only taking albuterol at this time. She does admit to frequent antibiotics for my lungs. Reports PNA vaccine last year. She denies fever, night sweats and other consitutional symptoms. Today, reports overall improvement in symptoms. Lungs clear on exam today. ACT 9. - PFTs from uploaded. Conclusion read Although there is airway obstruction and a diffusion defect suggesting emphysema, the absenece of overinflation is inconsistent with that diagnosis. The MVV is reduced more than FEV1 suggeting poor effort or concurrent neuromuscular disease. - TLC 4.35 and lung volumes within normal limits. - Spirometry done today and showed normal FVC, FEV1, borderline FEV%. FVL shows scalloping on exhalation. Normal lung age. FEV1 1.92L today, 270cc increase from FEV1 in 09/2023 (1.65L). This is c/w ATS-defined criteria for asthma diagnosis. - Will restart high dose Trelegy. Encouraged Jenae she must remain on a controller inhaler. Instructed to brush teeth after inhalation. Samples given. Tri continue to be held at this time. - AirSupra attempted, but patient I did not like the way it made me feel. Will continue albuterol PRN. - AAP formulated and reviewed at length with patient and . Instructed she should be taking Trelegy everyday. - Per recommendations from pulmonology in 05/2023, Jenae was ordered for six-minute walk test, but never followed up. Slated for pulmonary follow-up with Dr. Phillips on 12/12/23. - CBC, Total IgE ordered for biologic workup. Total IgE 25, Absolute Eosinophil count 1100. Abnormalities seen on WBC and abs neutrophil count. Repeat CBC to be obtained now in addition to Alpha-1 antitrypsin. - Obtain Chest Xray if no recent. Jenae reports recent Chest Xray, though cannot remember who ordered. - Follow-up in 1 month for E&M, potential FASENRA initiation. 11/29/2023 Severe persistent asthma, uncomplicated (ICD-10 - J45.50) Given low ACT, repeated need for OCS and absolute eosinophil count of 1100, Jenae is an ideal candidate for biologic therapy with Fasenra. Discussed at length with Dr. Fuchs, recommend follow-up with Dr. Phillips regarding PFT results. Would appreciate feedback from pulmonology. 12/01/2023 Wheezing (ICD-10 - R06.2) 12/19/2023 Severe persistent asthma, uncomplicated (ICD-10 - J45.50) At initial visit, Jenae presented visibly short of breath with audible wheezing. Her and her report this has been ongoing for 4-5 years. She has been on/off steroids for a long time. Symptoms resolve with OCS, but return shortly after stopping. Complaince was issue with Trelegy, but patient reports daily use since last visit. She does admit to frequent antibiotics for my lungs. Reports PNA vaccine last year. She denies fever, night sweats and other consitutional symptoms. Today, reports overall improvement in symptoms. Lungs clear on exam today. ACT 11. Last OCS in 10/2023. - Given low ACT, repeated need for OCS and absolute eosinophil count of 1200, Jenae is an ideal candidate for biologic therapy with Fasenra. Discussed at length with Dr. Fuchs and discussed with Dr. Phillips and both in agreement. - PFTs from uploaded. Conclusion read Although there is airway obstruction and a diffusion defect suggesting emphysema, the absenece of overinflation is inconsistent with that diagnosis. The MVV is reduced more than FEV1 suggeting poor effort or concurrent neuromuscular disease. Discussed with Dr. Phillips and she agreed with biologic initiation with Fasenra. - TLC 4.35 and lung volumes within normal limits. - Last spirometry showed normal FVC, FEV1, borderline FEV%. FVL shows scalloping on exhalation. Normal lung age. FEV1 1.92L, 270cc increase from FEV1 in 09/2023 (1.65L). This is c/w ATS-defined criteria for asthma diagnosis. - Continue high dose Trelegy. Encouraged Jenae she must remain on a controller inhaler. Instructed to brush teeth after inhalation. Refills sent. Breztri continue to be held at this time. - AirSupra attempted, but patient I did not like the way it made me feel. Will continue albuterol PRN - she is still using 1-2 times per day. - AAP reviewed with patient and . Again, instructed she should be taking Trelegy everyday. - Per recommendations from pulmonology in 05/2023, Jenae was ordered for six-minute walk test, but never followed up. She has since established with Dr. Phillips, will request records. - CBC, Total IgE ordered for biologic workup. Total IgE 25, with repeat Absolute Eosinophil count 1200. Repeat CBC obtained showing elevated WBC, low RBC, high Abs neutrophil count 8.2, and abs eosinophil count 1200. Forwarded to PCP. Will plan for repeat in 1 month. - Alpha-1 antitrypsin WNL. - Obtain Chest Xray if no recent. Jenae reports recent Chest Xray, though cannot remember who ordered. 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 - Fasenra initiated today and tolerated without adverse effect. - Received Shingles vaccine x 1 2-3 weeks ago without issues. 01/16/2024 Severe persistent asthma, uncomplicated (ICD-10 - J45.50) At initial visit, Jenae presented visibly short of breath with audible wheezing. Her and her report this has been ongoing for 4-5 years. She has been on/off steroids for a long time. Symptoms resolve with OCS, but return shortly after stopping. Complaince was issue with Trelegy, but patient reports daily use since last visit. She does admit to frequent antibiotics for my lungs. Reports PNA vaccine last year. She denies fever, night sweats and other consitutional symptoms. Today, reports overall improvement in symptoms with no interval JENNA use! Lungs clear on exam today. ACT 21, up from 11 at last visit. Last OCS in 10/2023. - Given low ACT, repeated need for OCS and absolute eosinophil count of 1200, Jenae is an ideal candidate for biologic therapy with Fasenra. Discussed at length with Dr. Fuchs and with Dr. Phillips, both in agreement. - PFTs from uploaded. Conclusion read Although there is airway obstruction and a diffusion defect suggesting emphysema, the absenece of overinflation is inconsistent with that diagnosis. The MVV is reduced more than FEV1 suggeting poor effort or concurrent neuromuscular disease. Discussed with Dr. Phillips and she agreed with biologic initiation with Fasenra. - TLC 4.35 and lung volumes within normal limits. - Last spirometry showed normal FVC, FEV1, borderline FEV%. FVL shows scalloping on exhalation. Normal lung age. FEV1 1.92L, 270cc increase from FEV1 in 09/2023 (1.65L). This is c/w ATS-defined criteria for asthma diagnosis. - Continue high dose Trelegy. Encouraged Jenae she must remain on a controller inhaler. Instructed to brush teeth after inhalation. - AirSupra attempted, but patient I did not like the way it made me feel. Will continue albuterol PRN - no interval use since Fasenra was initiated. - AAP reviewed with patient and . - Per recommendations from pulmonology in 05/2023, Jenae was ordered for six-minute walk test, but never followed up. She has since established with Dr. Phillips, will request records. - CBC, Total IgE ordered for biologic workup. Total IgE 25, with repeat Absolute Eosinophil count 1200. Repeat CBC in 11/2023showing elevated WBC, low RBC, high Abs neutrophil count 8.2, and abs eosinophil count 1200. CBC from 12/2023 showin abs eos 0, normal WBC and abs neutrophil count. RBC still mildy decreased, but imprved from prior CBC. Forwarded to PCP. - Alpha-1 antitrypsin WNL. - Obtain Chest Xray if no recent. Jenae reports recent Chest Xray, though cannot remember who ordered. 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 - Received Shingles vaccine x 1 6-7 weeks ago without issues. 02/14/2024 Severe persistent asthma, uncomplicated (ICD-10 - J45.50) Jenae returns today to continue treatment with FASENRA, approved for several eosinophilic asthma. Treatment was initiated in December 2023. This is her third dose. Previously OCS dependent asthmatic maximized on high dose She has had a great clinical improvement on her biologic therapy. Today ACT=24. -Jenae is an ideal candidate for Fasenra given her steroid requirement, low ACT, and maximized treatment regiment. Dosing today continued and she will space out to Q8 week dosing. Will monitor lower airway symptoms. Last OCS in 10/2023. - Pre-treatment [id number]. Last CBC showed AEC=0 - PFTs from [...] Dr. Phillips will see her PRN. - Last spirometry showed normal FVC, FEV1, borderline FEV%. FVL shows scalloping on exhalation. Normal lung age. FEV1 1.92L, 270cc increase from FEV1 in 09/2023 (1.65L). This is c/w ATS-defined criteria for asthma diagnosis. - Continue high dose Trelegy 1 puff QD. Encouraged Jenae she must remain on a controller inhaler. Instructed to brush teeth after inhalation. Watch for compliancy. Continue JENNA per AAP - AirSupra attempted, but patient I did not like the way it made me feel. Will continue albuterol PRN - no interval use since Fasenra was initiated. - Per recommendations from pulmonology in 05/2023, Jenae was ordered for six-minute walk test, but never followed up. Per patient was told to follow-up with Pulmonary PRN - Alpha-1 antitrypsin=MM - Closely follow frequency of infections; consider PI work-up. Pneumococcal vaccine received in the last year - needs to bring in date. Recommend annual flu shot, COVID booster, and RSV vaccines. Also needs to complete Shingles series -Consider additional imaging but clinically stable on current regimen; will clint monitor given her history of PE/DVT - Follow-up in 8 weeks for FASENRA dosing 02/14/2024 Eosinophilic asthma (ICD-10 - J82.83) The patient [...] today and tolerated without adverse effect. 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 - Received Shingles vaccine x 1 6-7 weeks ago without issues; needs to return for second dose 04/10/2024 Severe persistent asthma, uncomplicated (ICD-10 - J45.50) Jenae returns today to continue treatment with FASENRA, approved for several eosinophilic asthma. Treatment was initiated in December 2023. This is her third dose. Previously OCS dependent asthmatic maximized on high dose She has had a great clinical improvement on her biologic therapy. Today ACT=13 lower today as she is not c/w meds. -Jenae is an ideal candidate for Fasenra given her steroid requirement, low ACT, and maximized treatment regiment. Dosing today continued and she will continue out to Q8 week dosing. Will monitor lower airway symptoms. Last OCS in 10/2023. If she continues to have symptoms consider a change in biologic HOWEVER her compliancy to taking daily meds is an issues. Start Trelegy 1 puff in the morning and Singulair at night. - Pre-treatment [id number]. Last CBC showed AEC=0 - PFTs from [...] Dr. Phillips will see her PRN. - Last spirometry showed normal FVC, FEV1, borderline FEV%. FVL shows scalloping on exhalation. Normal lung age. FEV1 1.92L, 270cc increase from FEV1 in 09/2023 (1.65L). This is c/w ATS-defined criteria for asthma diagnosis. - Continue high dose Trelegy 1 puff QD. Encouraged Jenae she must remain on a controller inhaler. Instructed to brush teeth after inhalation. Watch for compliancy. Continue JENNA per AAP - AirSupra attempted, but patient I did not like the way it made me feel. Will continue albuterol PRN - no interval use since Fasenra was initiated. - Per recommendations from pulmonology in 05/2023, Jenae was ordered for six-minute walk test, but never followed up. Per patient was told to follow-up with Pulmonary PRN - Alpha-1 antitrypsin=MM - Closely follow frequency of infections; consider PI work-up. Pneumococcal vaccine received in the last year - needs to bring in date. Recommend annual flu shot, COVID booster, and RSV vaccines. Also needs to complete Shingles series -Consider additional imaging but clinically stable on current regimen; will clint monitor given her history of PE/DVT - Follow-up in 8 weeks for FASENRA dosing 06/05/2024 Eosinophilic asthma (ICD-10 - J82.83) The patient [...] adverse effect. - Completed Shingles vaccine series. 07/17/2024 Vitamin D deficiency, unspecified (ICD-10 - E55.9) 06/05/2024 Severe persistent asthma, uncomplicated (ICD-10 - J45.50) Jenae returns today to continue treatment with FASENRA, approved for several eosinophilic asthma. Treatment was initiated in December 2023. This is her fourth dose. Previously OCS dependent asthmatic maximized on high dose. She has had a great clinical improvement on her biologic therapy. Last vist in 03/2024, ACT=13 as she was not c/w meds. Today, reports improvement as she is back on daily Trelegy. Minimal JENNA use. ACT 20. No interval wheezing. Occasional SOB with exertion. -Jenae is an ideal candidate for Fasenra given her steroid requirement, low ACT, and maximized treatment regiment. Dosing today continued and she will continue out to Q8 week dosing. Will monitor lower airway symptoms. Last OCS in 10/2023. If she continues to have symptoms consider a change in biologic HOWEVER her compliancy to taking daily meds has been an issue. - Continue medications.Trelegy 1 puff in the morning and Singulair at night. Continue to brush teeth after inhalation. - Pre-treatment [id number]. Last CBC showed AEC=0 - PFTs from [...] Dr. Phillips will see her PRN. - Last spirometry showed normal FVC, FEV1, borderline FEV%. FVL shows scalloping on exhalation. Normal lung age. FEV1 1.92L, 270cc increase from FEV1 in 09/2023 (1.65L). This is c/w ATS-defined criteria for asthma diagnosis. - Spirometry today showed normal FVC, FEV1, FEV%. FVC increased by 140cc and FEV1 increased by 290cc compared to 11/2023 spirometry. FVL shows scalloping on end-exhalation. Normal lung age. - Continue high dose Trelegy 1 puff QD. Encouraged Jenae she must remain on a controller inhaler. Instructed to brush teeth after inhalation. Watch for compliancy. Continue JENNA per AAP - AirSupra attempted, but patient I did [...] 8 weeks for FASENRA dosing, E&M 08/07/2024 Severe persistent asthma, uncomplicated (ICD-10 - [...] inhalation. Refills sent for SIngulair. - Pre-treatment [id number]. Last CBC showed AEC=0 - PFTs from [...] adverse effect. - Completed Shingles vaccine series. 07/15/2024 Vitamin D deficiency, unspecified (ICD-10 - E55.9) R/O as stated in prior note. 07/15/2024 Other allergic rhinitis (ICD-10 - J30.89) R/O as stated in prior note. Ongoing syptoms. Previous lab drawn in setting of OCS. 08/07/2024 Personal history of systemic steroid therapy (ICD-10 - Z92.241) At one time Jenae was nearly steroid dependent. She has required steroids intermittently for years. - Recommend DEXA can with PCP. 06/05/2024 Personal history of systemic steroid therapy (ICD-10 - Z92.241) At one time Jenae was nearly steroid dependent. She has required steroids intermittently for years. - Recommend establishing with new PCP. Needs DEXA scan and updated Vitamin D (currently not on Vitamin D or calcium). She will check with her prior PCP and see if she has had a recent lab drawn. Likely needs supplementation, will check Vitamin D at this time. 04/10/2024 Personal history of systemic steroid therapy (ICD-10 - Z92.241) At one time Jenae was nearly steroid dependent. She has required steroids intermittently for years. -Recommend establishing with new PCP. Needs DEXA scan and updated Vitamin D (currently not on Vitamin D or calcium). She will check with her prior PCP and see if she has had a recent lab drawn. Likely needs supplementation but if not checked will obtain at f/u. 02/14/2024 Personal history of systemic steroid therapy (ICD-10 - Z92.241) At one time Jenae was nearly steroid dependent. She has required steroids intermittently for years. -Recommend establishing with new PCP. Needs DEXA scan and updated Vitamin D (currently not on Vitamin D or calcium). She will check with her prior PCP and see if she has had a recent lab drawn. Likely needs supplementation but if not checked will obtain at f/u. 01/16/2024 Wheezing (ICD-10 - R06.2) Lungs clear on exam today 12/19/2023 Wheezing (ICD-10 - R06.2) Lungs clear on exam today 11/29/2023 Eosinophilic asthma (ICD-10 - J82.83) The patient [...] for patients age 50 or older). - Yasmin paperwork completed and given to biologic coordinator - Recommended Shingles vaccine as patient has not had. She wants to discuss with PCP prior to obtaining vaccine as her sister had a really bad reaction. 10/24/2023 Chronic cough (ICD-10 - R05.3) As stated above. 11/29/2023 Shortness of breath (ICD-10 - R06.02) As stated above. 10/24/2023 Hypertrophy of nasal turbinates (ICD-10 - J34.3) Will order ImmunoCaps at this time given patient actively wheezing in office today. Consider aeroallergen skin testing pending results. Recommend spirometry prior to determine FEV1. 12/01/2023 Hypertrophy of nasal turbinates (ICD-10 - J34.3) 12/19/2023 Shortness of breath (ICD-10 - R06.02) As stated above. 01/16/2024 Shortness of breath (ICD-10 - R06.02) As stated above. 02/14/2024 Wheezing (ICD-10 - R06.2) Clear on exam today 06/05/2024 Wheezing (ICD-10 - R06.2) Clear on exam today 04/10/2024 Wheezing (ICD-10 - R06.2) Clear on exam today 08/07/2024 Wheezing (ICD-10 - R06.2) Clear on exam today 06/05/2024 Hypertrophy of nasal turbinates (ICD-10 - J34.3) ImmunoCaps negative to all aeroallergens, total IgE 25. Will obtain repeat ImmunoCaps now as she has been off steroids for several months. Consider aeroallergen skin testing based off results. Doing well on Astelin QD-BID. 02/14/2024 Hypertrophy of nasal turbinates (ICD-10 - J34.3) ImmunoCaps negative to all aeroallergens, total IgE 25. Consider SPT vs. recheck of labs as she is no longer on steroids. Doing well on Astelin QD-BID 04/10/2024 Hypertrophy of nasal turbinates (ICD-10 - J34.3) ImmunoCaps negative to all aeroallergens, total IgE 25. Consider SPT vs. recheck of labs as she is no longer on steroids. Doing well on Astelin QD-BID 01/16/2024 Chronic cough (ICD-10 - R05.3) As stated above. 12/19/2023 Chronic cough (ICD-10 - R05.3) As stated above. 11/29/2023 Chronic cough (ICD-10 - R05.3) As stated above. 10/24/2023 Chronic rhinitis (ICD-10 - J31.0) As stated above. 08/07/2024 Hypertrophy of nasal turbinates (ICD-10 - J34.3) ImmunoCaps negative to all aeroallergens, total IgE 25. Repeat ImmunoCaps off steroids for several months negative to all aeroallergens with toal IgE 15. Consider aeroallergen skin testing based off results. Doing well on Astelin QD-BID. 10/24/2023 Essential (primary) hypertension (ICD-10 - I10) BP elevated today without symptoms of urgency or emergency. Continue serial checks and follow-up with PCP 11/29/2023 Hypertrophy of nasal turbinates (ICD-10 - J34.3) ImmunoCaps negative to all aeroallergens, total IgE 25. Consider aeroallergen skin testing in future. 12/19/2023 Hypertrophy of nasal turbinates (ICD-10 - J34.3) ImmunoCaps negative to all aeroallergens, total IgE 25. Consider aeroallergen skin testing in future. 01/16/2024 Hypertrophy of nasal turbinates (ICD-10 - J34.3) ImmunoCaps negative to all aeroallergens, total IgE 25. Consider aeroallergen skin testing in future. Today, reporting increased PND for past 6-7 days. Will trial azelastine at this time. Orders sent out. 02/14/2024 Chronic rhinitis (ICD-10 - J31.0) As stated above. 06/05/2024 Chronic rhinitis (ICD-10 - J31.0) As stated above. 04/10/2024 Chronic rhinitis (ICD-10 - J31.0) As stated above. 08/07/2024 Chronic rhinitis (ICD-10 - J31.0) As stated above. 08/07/2024 Vitamin D deficiency, unspecified (ICD-10 - E55.9) Vitamin D level 12.1. Recommended 10,000IU daily x 3 months which Jenae has now started. - Due for recheck of Vitamin D in 10/2024. 04/10/2024 Essential (primary) hypertension (ICD-10 - I10) BP WNL today. Continue serial checks and follow-up with PCP 06/05/2024 Vitamin D deficiency, unspecified (ICD-10 - E55.9) R/O as stated above. 02/14/2024 Essential (primary) hypertension (ICD-10 - I10) BP WNL today. Continue serial checks and follow-up with PCP 12/19/2023 Chronic rhinitis (ICD-10 - J31.0) As stated above. 01/16/2024 Chronic rhinitis (ICD-10 - J31.0) As stated above. 11/29/2023 Chronic rhinitis (ICD-10 - J31.0) As stated above. 12/19/2023 Essential (primary) hypertension (ICD-10 - I10) BP elevated today without symptoms of urgency or emergency. Continue serial checks and follow-up with PCP 11/29/2023 Essential (primary) hypertension (ICD-10 - I10) BP elevated today without symptoms of urgency or emergency. Continue serial checks and follow-up with PCP 01/16/2024 Essential (primary) hypertension (ICD-10 - I10) BP WNL today. Continue serial checks and follow-up with PCP 06/05/2024 Essential (primary) hypertension (ICD-10 - I10) BP elevated today without symptoms of urgency or emergency. Continue serial checks and follow-up with PCP 08/07/2024 Essential (primary) hypertension (ICD-10 - I10) BP elevated today without symptoms of urgency or emergency. Continue serial checks and follow-up with PCP 10/24/2023 Other 11/29/2023 Other 12/19/2023 Other 01/16/2024 Other 02/14/2024 Other 04/10/2024 Other 08/07/2024 Other 06/05/2024 Other Plan Of Treatment Pending Test Test Name Order Date -Vitamin D, 25-Hydroxy 06/05/2024 -Respiratory Allergens w/Total IgE Area 8 06/05/2024 Next Appt Details Provider Name:Eloy BrightTyler Fuchs , 10/09/2024 01:30:00 PM, [address] [facility], [address], [address], Insurance Providers Payer Name Payer Address Payer Phone Subscriber Number Group Number Insured Name Patient Relationship to Insured Coverage Start Date Coverage End Date [employer] (Medicare) Attention Claims [address] [place] [phone] [id number] Bran Sage Self - patient is the insured 5 for Life [address] [place] [address] [id number] Shai Sage Jr. Spouse - patient is the spouse of the insured 5 Medical (General) History Medical History History ICD Code Hypertension Type II diabetes breast cancer Eczema Mitral valve prolapse Lymphedema Cataracts Surgical History Surgery Date(Month/Year) Tonsil taken out 10/16/1958 Tabularization 06/18/1976 Hysterectomy partial had fibroids. 06/18 Breast cancer Left Breast removed 2000 heart cath 10/15/2023 cataract removal 07/31/2024 Hospitalization History Reason Date(Month/Year) rsv, covid, and flu 06/18/2022 RSV Asthma with exacerbation 06/06/2022 had a infection in left arm Strep Cellul itis 04/18/2011 Chronic Lymadeama left arm 04/18/2001
== END 2024-10-08 08:06 | disposition home or self-care (01) ==
LOC: ANHIMG 08:08
DX: M85.88 Other specified disorders of bone density and structure, other site (principal); Z78.0 Asymptomatic menopausal state; Z13.820 Encounter for screening for osteoporosis
CPT/HCPCS: 77080

== ENCOUNTER 2025-05-12 11:46 | Emergency (ER) | payer MEDICARE, OTHER, SELFPAY ==
--- OUTSIDE RECORDS SUMMARY | 2024-07-31 11:30 | XMS_ITS ---
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 Name Role Phone Declan Jeffers MD Primary Care Provider Unavailab Apple Royal Unavailable [phone] Jelena Canales PA-C Unavailable Unavailable REASON FOR VISIT fasenra Social History Sex Assigned At : Social History Observation Description Sex Assigned At Female Encounters Encounter Location Date Provider Diagnosis [facility] [address] [place] [address] 07/31/2024 Apple Astudillo Plan Of Treatment Next Appt Details Provider Name:Apple aiken, 05/21/2025 10:30:00 AM, [address] [facility], [address], [place], [address], Progress Notes * Morgan SANCHEZOB:1950 (75 yo F)Acc No.[id number]:07/31/2024 FASENRA 2 Patient: Bran ESCOBAR Provider: REILLY Coreas :1950 A ge:74 Y S ex:Female Date:07/31/2024 Address:[address] [place], [place] [id number] Pcp:Declan Jeffers MD Subjective: * Chief Complaints: * 1 . Fasenra. * Medical History: Objective: * Vitals: Assessment: Plan: * Treatment: * Billing Information: * Visit Code: * Procedure Codes: * Electronic signature of REILLY Connelly on 05/12/2025 at 01:31 PM BUILDING ASSOCIATE Sign off status: Pending * Provider: REILLY Coreas Date: 0 07/31/2024 Generated for Shabbir boswell/Bradley/Ashley on: 07/12/2024 01:31 PM BUILDING ASSOCIATE
--- OUTSIDE RECORDS SUMMARY | 2024-10-09 11:30 | XMS_ITS ---
Author Organization [facility] [place] ([address]) Address [address] [place] [address] Care Team Providers Care Well Driller Helper Name Role Phone Declan Jeffers MD Primary Care Provider Unavailab Apple Royal Unavailable [phone] Parker PRYOR, Jelena Unavailable Unavailable Castro Garcia Unavailable [phone] REASON FOR VISIT FASENRA BB Follow-up Social History Sex Assigned At : Social History Observation Description Sex Assigned At Female Encounters Encounter Location Date Provider Diagnosis [facility] [address] [place] [address] 10/09/2024 Castro Garcia Plan Of Treatment Next Appt Details Provider Name:Apple aiken, 05/21/2025 10:30:00 AM, [address] [facility], [address], [place], [address], Progress Notes * Morgan SANCHEZOB:1950 (75 yo F)Acc No.[id number]:10/09/2024 FASENRA 2 Patient: Ang ESCOBARalex Provider: Jeff Garcia PA-C :1950 A ge:74 Y S ex:Female Date:10/09/2024 Address:[address] [place], [place] [id number] Pcp:Declan Jeffers MD Subjective: * Chief Complaints: * 1 . ELOINA BB Follow-up. * Medical History: Objective: * Vitals: Assessment: Plan: * Treatment: * Billing Information: * Visit Code: * Procedure Codes: * Electronic signature of Fuad Garcia PA-C on 05/12/2025 at 01:31 PM MUSEUM GUIDE Sign off status: Pending * Provider: Jeff Garcia PA-C Date: 0 10/09/2024 Generated for Shabbir boswell/Bradley/Ashley on: 07/12/2024 01:31 PM MUSEUM GUIDE
[2025-05-12 12:01] VITALS: BP 171/70; PULSE 87; RESP 18; TEMP 36.2; O2SAT 99
--- NOTE | 2025-05-12 12:31 | ED.SKABFB ---
HPI - Skin/Abscess/Foreign Bdy General Chief complaint: Skin/Abscess/Foreign Body Stated complaint: spots on arm Time Seen by Provider: 05/12/25 12:10 Source: patient and RN notes reviewed Mode of arrival: ambulatory Limitations: no limitations History of Present Illness HPI narrative: 75-year-old female presents Express Care complaining of possible rash to her left arm that started approximately 3 days ago. Patient reports having a red rash to her left upper arm, she reports nodule to her left mid arm is swollen and tender to palpate. Patient reports her arm was initially hot to touch without is subsided however she reports this developed pain and swelling to the nodule on her left arm. Patient reports a history of diabetes. Patient says she has a history of cellulitis. Patient has any fevers, body eczema chills, or any other symptoms. Related Data Home Medications ?Medication ?Instructions ?Recorded ?Confirmed ?Last Taken ?Type acetaminophen 500 mg capsule 1,000 mg PO BID PRN Pain (Scale 07/25/22 03/05/25 Unknown History Score 1-3) clopidogrel 75 mg tablet (Plavix) 75 mg PO DAILY 08/17/23 03/05/25 Unknown History benralizumab 30 mg/mL subcutaneous 30 mg subcut .every other month 03/26/24 03/05/25 Unknown History syringe (Fasenra) cholecalciferol (vitamin D3) 250 10,000 unit PO DAILY 08/29/24 03/05/25 Unknown History mcg (10,000 unit) tablet Allergies Allergy/AdvReac Type Severity Reaction Status Date / Time escitalopram (From Lexapro) Allergy Severe Itching Verified 03/05/25 15:16 empagliflozin (From Allergy Mild Difficulty Verified 03/05/25 15:16 Jardiance) Swallowing fluticasone furoate (From Allergy Mild face Verified 03/05/25 15:16 Veramyst) swelling sitagliptin (From Januvia) Allergy Mild Difficulty Verified 03/05/25 15:16 Swallowing sulfamethoxazole Allergy Mild Rash Verified 03/05/25 15:16 codeine Allergy Unknown HALLUCINATI Verified 05/12/25 12:31 ONS erythromycin base Allergy Unknown CHEST PAIN. Verified 05/12/25 12:31 Penicillins Allergy Unknown RASH Verified 05/12/25 12:31 cefdinir Allergy Rash Verified 05/12/25 12:31 semaglutide (From Ozempic) Allergy Itching Verified 01/27/25 11:15 lisinopril AdvReac Mild Cough Verified 05/12/25 12:31 Review of Systems Review of Systems: CONSTITUTIONAL: Denies fever, chills, or sweats. EYES: Denies visual changes, redness, or discharge. ENT: Denies rhinorrhea, congestion, sore throat, or otalgia. CARDIOVASCULAR: Denies chest pain, palpitations, or edema. RESPIRATORY: Denies cough or dyspnea. GASTROINTESTINAL: Denies abdominal pain, nausea, vomiting, or diarrhea. GENITOURINARY: Denies dysuria or hematuria. SKIN: Positive for rash. Negative for itching. MUSCULOSKELETAL: Denies back pain, joint pain, or myalgia. NEUROLOGIC: Denies headache, numbness, or weakness. PSYCHIATRIC: Denies anxiety or depression. All other systems reviewed are negative, except as documented in HPI. [facility] Past Medical History Medical History Wheezing Depression Anxiety History of blood clots Eosinophilic asthma Essential hypertension Mixed hyperlipidemia Diabetes mellitus with stage 3b chronic kidney disease, with long-term current use of insulin Hypothyroidism Allergic rhinitis Overactive bladder Eczema Lymphedema due to chronic inflammation Mitral valve disorder Surgical History Surgical History History of angioplasty of peripheral vessel R popliteal artery, tibioperoneal trunk, peroneal down to foot 08/13/2023 History of tonsillectomy and adenoidectomy Hx of external ear surgery removal of growth Hx of breast biopsy right 01/16/2005 H/O tubal ligation 1970s History of mastectomy left 2000 History of partial hysterectomy 1970s Family History Family History Father Cancer Mother Heart disease Sibling Heart disease Sibling Breast cancer Heart disease Social History Social History Social History: She lives with her . She has 3 biologic children and 3 step children. She is retired from [employer]. She never smoked. code status: full code Smoking status: Never smoker Second hand tobacco smoke exposure: No Alcohol intake: never Substance use: never Substance use type: does not use Do You Feel Safe in your Home?: Yes Lack of Transportation: No Lack of Food: Never True Current Housing: I Have Housing Concerned About Future Housing: No Difficulty Paying Gas/Electric Bills: No Difficulty Paying for Meds: No Currently Unemployed: No Education: High School Diploma/GED Difficulty w/ Childcare or Family Care: No Living arrangements: with family Occupation/Education: retired Gender identity (if verbalized by the patient): Female Sexual Orientation (if Verbalized by the Patient): Straight or Heterosexual Spiritual care concerns: No Comments At the time of my signature, I reviewed and agree with the nursing past medical, surgical, social, and family history. There is no relevant family history pertinent to the patient complaint. Exam Narrative: GENERAL: This is a well-nourished, well-developed adult, in no apparent distress. They are non ill-appearing, nontoxic appearing. HEAD: normocephalic, atraumatic. EYES: Sclera clear/white. Conjunctiva normal. Vision is grossly intact. Extraocular movements intact EARS: External ears normal. Hearing grossly intact. NOSE: External nose normal THROAT: Mucous membranes moist, NECK: Neck supple, CARDIOVASCULAR: Regular rate and rhythm RESPIRATORY: Respiratory rate normal, respiratory effort nonlabored, no respiratory distress GASTROINTESTINAL: Abdomen soft, non-tender, nondistended. Bowel sounds are active. No hepato-splenomegaly, or palpable masses. No guarding. SKIN: Small patchy small macular rash present to left upper arm, nontender to palpate implantable. There is an erythematous tender nodule to the left posterior mid arm. Is tender to palpate. Is measuring approximately 3 cm x 3 cm. No area of fluctuance, no induration. Is warm to touch. NEURO: awake, alert, and oriented to person, place and time. There were no obvious focal neurologic abnormalities. EXTREMITIES: No joint tenderness, effusion, or edema noted. BACK: Nontender without deformity. Course Course Emergency Course: Portions of this record may have been created with voice recognition software Level of Care: Express Care Visit Vital Signs Vital signs: Vital Signs Temperature 97.2 F L 05/12/25 12:01 Pulse Rate 87 05/12/25 12:01 Respiratory Rate 18 05/12/25 12:01 Blood Pressure 171/70 H 05/12/25 12:01 Pulse Oximetry 99 05/12/25 12:01 Oxygen Delivery Room Air 05/12/25 12:01 Temperature 97.2 F L 05/12/25 12:01 Pulse Rate 87 05/12/25 12:01 Respiratory Rate 18 05/12/25 12:01 Blood Pressure 171/70 H 05/12/25 12:01 Pulse Oximetry 99 05/12/25 12:01 Oxygen Delivery Room Air 05/12/25 12:01 Reviewed MDM - Skin/Abscess/Foreign Bdy MDM Narrative Medical decision making narrative: Appears patient has cellulitis to her arm. Will treat with doxycycline. Discussed physical exam findings. Advised supportive measures and signs/symptoms to go to the ER. Pt is appropriate for outpt treatment and f/u. Differential Diagnosis Differential diagnosis: Likely abscess of skin or subcutaneous tissue, cellulitis and contact dermatitis Critical Care Time Critical Care Time Critical Care Time: No Discharge Plan Discharge Clinical Impression: Cellulitis Qualifiers: Site of cellulitis: extremity Site of cellulitis of extremity: upper extremity Laterality: left Qualified Code(s): L03.114 - Cellulitis of left upper limb Patient Disposition: Home Condition: Stable Instructions: Antibiotic Form, Cellulitis (ED) Additional Instructions: Clean with soap and water only; Avoid using alcohol and peroxide. Tylenol or Motrin as needed for pain or fevers. Follow instructions on the bottle. Take antibiotic until it's gone. Please schedule a follow up visit with your personal physician for further evaluation and treatment within 3-5days Go to the ER he developed worsening redness, swelling, streaking going up the arm, body aches, chills, nausea, vomiting, fevers, or any serious concerns. Patient Language: Bulgarian Prescriptions: New doxycycline monohydrate 100 mg capsule 100 mg PO BID 7 Days Qty: 14 0RF No Action acetaminophen 500 mg capsule 1,000 mg PO BID PRN (Reason: Pain (Scale Score 1-3)) clopidogrel [Plavix] 75 mg tablet 75 mg PO DAILY Fasenra 30 mg/mL syringe 30 mg subcut .every other month lorazepam 0.5 mg tablet 0.5 mg PO BID PRN (Reason: anxiety) Qty: 30 0RF albuterol sulfate 90 mcg/actuation HFA aerosol inhaler 1 puff inhalation Q4H PRN (Reason: shortness of breath or wheezing) Qty: 6.7 1RF (DME) lancets [FreeStyle Lancets] 28 gauge misc See Rx Instructions .Route Qty: 300 3RF Rx Instructions: As directed alcohol swabs Pads, Medicated 1 pad topical TID 90 Days Qty: 200 5RF valsartan 40 mg tablet 40 mg PO DAILY 90 Days Qty: 90 3RF cholecalciferol (vitamin D3) 250 mcg (10,000 unit) tablet 10,000 unit PO DAILY Breztri Aerosphere 160-9-4.8 mcg/actuation HFA aerosol inhaler 2 inh inhalation BID Qty: 10.7 5RF (DME) FreeStyle Test Strip See Rx Instructions .Route Qty: 300 3RF Rx Instructions: As directed hydrochlorothiazide 25 mg tablet 25 mg PO DAILY Qty: 90 1RF levothyroxine 75 mcg tablet 75 mcg PO DAILY Qty: 90 3RF (DME) pen needle, diabetic [Comfort EZ Pen Delta] 32 gauge x 3/16 needle See Rx Instructions .Route Qty: 300 5RF Rx Instructions: three times daily insulin glargine [Lantus Solostar U-100 Insulin] 100 unit/mL (3 mL) insulin pen 25 unit subcut BID 90 Days Qty: 45 1RF Zyrtec 10 mg capsule 10 mg PO DAILY Qty: 90 0RF Follow-up/Referrals: Declan Jeffers MD [Primary Care Provider, Family Practice] Time of Disposition: 12:31
--- OUTSIDE RECORDS SUMMARY | 2025-05-12 13:31 | XMS_ITS | Patient Health Record ---
Author Organization [facility] [place] ([address]) Address [address] [place] [address] Care Team Providers Care Dog Barber Name Role Phone Aury DAMICO, Declan Primary Care Provider Unavailab Apple Royal Unavailable [phone] Parker PRYOR, Jelena Unavailable Unavailable Eloy Fuchs Unavailable [phone] Castro Garcia Unavailable [phone] Allergies Allergen (clinical drug ingredient) Drug/Non Drug Allergy documented on EMR Reaction Allergy Type Onset Date Status codeine CODEINE, (uncoded) hallucinations Allergy Active JANUVIA SHOT (uncoded) trouble breathing Allergy Active VRANYST (uncoded) mouth swelling Allergy Active Empagliflozin difficulty swallowing Drug Allergy Active erythromycin Erythromycin Base chest pain Drug Allergy Active empagliflozin Jardiance throat closing Drug Allergy Active lisinopril Lisinopril cough Drug Allergy Active Sulfamethoxazole rash Drug Allergy Active Penicillin rash Drug Allergy Active sitagliptin SITagliptin difficulty swallowing Drug Allergy Active Results Component Value Reference Range Notes Spirometry Reviewed date:06/05/2024 02:56:15 PM Interpretation:Abnormal - [...] SpiroPredicted_PEF 5.03 -CBC With Differential/Plate let Reviewed date:02/01/2025 04:15:17 PM Interpretation:Abnormal Performing Lab:[facility], [address] [place] [address], [place], [place] [id number], Phone - [phone], Director - Kizzy Notes/Report: WBC 13.2 3.4-10.8 x10E3/uL RBC 3.86 3.77-5.28 x10E6/uL Hemoglobin 10.9 11.1-15.9 g/dL Hematocrit 34.1 34.0-46.6 % MCV 88 79-97 fL MCH 28.2 26.6-33.0 pg MCHC 32.0 31.5-35.7 g/dL RDW 13.3 11.7-15.4 % Platelets 351 150-450 x10E3/uL Neutrophils 82 Not Estab. % Lymphs 12 Not Estab. % Monocytes 5 Not Estab. % Eos 0 Not Estab. % Basos 0 Not Estab. % Neutrophils (Absolute) 10.8 1.4-7.0 x10E3/uL Lymphs (Absolute) 1.6 0.7-3.1 x10E3/uL Monocytes(Absolute) 0.7 0.1-0.9 x10E3/uL Eos (Absolute) 0.0 0.0-0.4 x10E3/uL Baso (Absolute) 0.0 0.0-0.2 x10E3/uL Immature Granulocytes 1 Not Estab. % Immature Grans (Abs) 0.1 0.0-0.1 x10E3/uL -Vitamin D, 25-Hydroxy Reviewed date:01/30/2025 12:25:58 PM Interpretation:Normal Performing Lab:[facility], [address], [place] [id number], Phone - [phone], [facility]/Report: Vitamin D, 25-Hydroxy 56.8 30.0-100.0 ng/mL Vitamin D deficiency has been defined by the [place] [employer] and an Endocrine Society practice guideline as a level of serum 25-OH vitamin D less than 20 ng/mL (1,2). The Endocrine Society went on to further define vitamin D insufficiency as a level between 21 and 29 ng/mL (2). 1. IOM ([place] [employer]). 2010. Dietary reference intakes for calcium and D. [place]: The National Academies Press. 2. Daisy MF, Naty NC, Rommel SCHWAB, et al. Evaluation, treatment, and prevention of vitamin D deficiency: an Endocrine Society clinical practice guideline. JCEM. 2010; 96(7):1911-30. -CMP (14) Reviewed date:02/01/2025 04:15:06 PM Interpretation:Abnormal Performing Lab:[facility], [address], [place] [id number], Phone - [phone], Director - [facility] Notes/Report: Glucose 125 70-99 mg/dL BUN 33 8-27 mg/dL Creatinine 1.60 0.57-1.00 mg/dL eGFR 34 >59 mL/min/1.73 BUN/Creatinine Ratio 21 12-28 Sodium 138 134-144 mmol/L Potassium 5.7 3.5-5.2 mmol/L Chloride 104 96-106 mmol/L Carbon Dioxide, Total 20 20-29 mmol/L Calcium 9.6 8.7-10.3 mg/dL Protein, Total 6.8 6.0-8.5 g/dL Albumin 4.1 3.8-4.8 g/dL Globulin, Total 2.7 1.5-4.5 g/dL Bilirubin, Total 0.2 0.0-1.2 mg/dL Alkaline Phosphatase 95 44-121 IU/L AST (SGOT) 12 0-40 IU/L ALT (SGPT) 10 0-32 IU/L -Vitamin D, 25-Hydroxy Reviewed date:07/22/2024 08:15:26 AM Interpretation:Abnormal Performing Lab:[facility], [address], [place] [id number], Phone - [phone], Director - Kizzy Notes/Report: Vitamin D, 25-Hydroxy 12.4 30.0-100.0 ng/mL Vitamin D deficiency has been defined by the [place] [employer] and an Endocrine Society practice guideline as a level of serum 25-OH vitamin D less than 20 ng/mL (1,2). The Endocrine Society went on to further define vitamin D insufficiency as a level between 21 and 29 ng/mL (2). 1. IOM ([place] [employer]). 2010. Dietary reference intakes for calcium and D. [place]: The National Academies Press. 2. Daisy MF, Naty JOSEPH, Rommel SCHWAB, et al. Evaluation, treatment, and prevention of vitamin D deficiency: an Endocrine Society clinical practice guideline. JCEM. 2010; 96(7):1911-30. -Respiratory Allergens w/Tot al IgE Area 8 Reviewed date:07/22/2024 08:12:34 AM Interpretation:Normal Performing Lab:[facility], [address] [place] [id number], Phone - [phone], Director - Cordelia Notes/Report: Class Description Levels of Specific IgE Class Description of Class ----- < 0.10 0 Negative 0.10 - 0.31 0/I Equivocal/Low 0.32 - 0.55 I Low 0.56 - 1.40 II Moderate 1.41 - 3.90 III High 3.91 - 19.00 IV Very High 19.01 - 100.00 V Very High >100.00 Very High Immunoglobulin E, Total 15 6-495 IU/mL C451-LoJ D pteronyssinus <0.10 Class 0 kU/L B599-WaB D farinae <0.10 Class 0 kU/L C131-ChA Cat Dander <0.10 Class 0 kU/L U693-SmR Dog Dander <0.10 Class 0 kU/L G507-YdH Mouse Urine <0.10 Class 0 kU/L K553-OjB Bermuda Grass <0.10 Class 0 kU/L X928-CrF Rashard Grass <0.10 Class 0 kU/L I824-AsX Cockroach, Faroese <0.10 Class 0 kU/L X089-OrN Penicillium chrysogen <0.10 Class 0 kU /L O644-FnD Cladosporium herbarum <0.10 Class 0 kU /L W508-MpL Aspergillus fumigatus <0.10 Class 0 kU /L M726-BbQ Alternaria alternata <0.10 Class 0 kU/ L X450-XzR Maple/Mccurtain <0.10 Class 0 kU/L E944-SgH Ramsey, Mountain <0.10 Class 0 kU/L S687-AiA [place], White <0.10 Class 0 kU/L Y379-ZxJ Elm, Greek <0.10 Class 0 kU/L T440-NiS [place] <0.10 Class 0 kU/L R423-WiP Maple [place] <0.10 Class 0 kU/L T886-DtT [place] <0.10 Class 0 kU/L L021-TcH Shiv, White <0.10 Class 0 kU/L E962-BfN Pecan, [place] <0.10 Class 0 kU/L B546-ZqD White [place] <0.10 Class 0 kU/L N251-AxS Ragweed, Short <0.10 Class 0 kU/L P057-XoE Thistle, [place] <0.10 Class 0 kU/L K622-CkM Pigweed, Common <0.10 Class 0 kU/L Q723-QyX Rough [place] <0.10 Class 0 kU/L Reason For Referral No Information Medications Medication SIG (Take, Route, Frequency, Duration) Notes Start Date End Date Status predniSONE 20 MG 3 tab(s) orally once a day; Duration: 4 days Not-Taking Airsupra 90 MCG-80 MCG/INH 2 INH INHALED 4 TIMES A DAY *Please review and pick correct strength-formul ation from [employer] options. If intended option is not shown, discontinue and re-order from Quick Search* Not-Taking Clopidogrel Bisulfate 75 MG 1 tab(s) orally once a day 4 Not-Taking PROAIR HFA 90 MCG/INH 2 PUFF(S) INHALED EVERY 6 HOURS *Please review for potential replacement for e-prescription and drug interaction check* Not-Taking Albuterol Sulfate (2.5 MG/3ML) 0.083% 3 mL by nebulizer every 6 hours Not-Taking Valsartan 80 MG 1 tab(s) orally once a day Not-Taking BUDESONIDE 0.25 mg/2 mL 2 mL by nebulize r 2 times a day Not-Taking ZyrTEC Allergy 10 MG 1 tablet PO QD Not-Taking Budesonide 0.25 MG/2ML 2 mL by nebulizer 2 times a day Not-Taking Flonase Allergy Relief 50 MCG/ACT 1 spray in each nostril Nasally Twice a day; Duration: 90 days Active Levothyroxine Sodium 75 MCG 1 tab(s) orally once a day Active Maxzide 50 MG-75 MG 1 TAB(S) ORALLY ONCE A DAY *Please review and pick correct strength-formul ation from [employer] options. If intended option is not shown, discontinue and re-order from Quick Search* Active Cetirizine HCl 10 MG 1 tablet Orally Once a day Active Diclofenac Sodium 75 MG 1 tab(s) orally 2 times a day Active Plavix 75 MG 1 tablet Orally Once a day Active hydroCHLOROthiazide 50 MG 1 tablet in the morning Orally Once a day Active Xyzal Allergy 24HR 5 MG 1 tablet in the evening Orally Once a day; Duration: 90 days Active LORazepam 0.5 MG 1 tab(s) orally every 8 hours Active Lantus 100 UNIT/ML 0 subcutaneously Active Aspirin 81 MG 1 tab(s) orally once a day Active Azelastine HCl 137 MCG/SPRAY 2 sprays in each nostril Nasally Twice a day; Duration: 30 days Active Montelukast Sodium 10 MG 1 tablet Orally at night; Duration: 90 days Active Vitamin D3 250 MCG (90510 UT) 1 capsule Orally Once a day Take with Food Active Breztri Aerosphere 160 MCG-4.8 MCG-9 MCG/INH 2 PUFF(S) INHALED 2 TIMES A DAY; Duration: 90 days *Please review and pick correct strength-formul ation from [employer] options. If intended option is not shown, discontinue and re-order from Quick Search* Active ALBUTEROL 2.5 mg/3 mL (0.083%) 3 mL by nebulizer every 6 hours Active Albuterol Sulfate HFA 108 (90 Base) MCG/ACT 2 puffs as needed Inhalation every 4 hrs; Duration: 30 days Active Trelegy Ellipta 200-62.5-25 MCG/ACT 1 puff Inhalation Once a day; Duration: 90 days Active Fasenra 30 MG/ML 1 null Subcutaneous; Duration: 30 days Active NovoLOG FlexPen 100 UNIT/ML as directed subcutaneously 3 times a day (before meals) Not-Taking Albuterol Sulfate HFA 108 (90 Base) MCG/ACT 1 puff as needed Inhalation every 4 hrs Not-Taking glipiZIDE 10 MG 1 tab(s) orally once a day 4 Not-Taking Trelegy Ellipta 200 MCG-62.5 MCG-25 MCG/INH 1 PUFF(S) INHALED ONCE A DAY *Please review and pick correct strength-formul ation from [employer] options. If intended option is not shown, discontinue and re-order from Quick Search* Not-Taking Valsartan 40 MG 1 tablet Orally Twice a day Not-Taking AEROCHAMBER MDI SPACER - MOUTHPIECE (ADULT) N/A As directed PO Per asthma action plan; Duration: 30 days Active ZYRTEC 10mg 1 tablet PO daily Active GLIPIZIDE 10 mg 1 tab(s) orally once a day 4 Not-Taking Levothyroxine Sodium 75 MCG 1 tablet in the morning on an empty stomach Orally Once a day Not-Taking TRELEGY ELLIPTA 200 mcg-62.5 mcg-25 mcg/inh 1 puff(s) inhaled once a day Not-Taking Ipratropium [place] 0.06 % 2 sprays in each nostril Nasally twice a day; Duration: 30 days 5 Active NOVOLOG FLEXPEN 100 units/mL as directed subcutaneously 3 times a day (before meals) Not-Taking LANTUS 100 units/mL 0 subcutaneously Not-Taking LEVOTHYROXINE 75 mcg (0.075 mg) 1 tab(s) orally once a day Not-Taking MAXZIDE 50 mg-75 mg 1 tab(s) orally once a day Not-Taking LORAZEPAM 0.5 mg 1 tab(s) orally every 8 hours Not-Taking DICLOFENAC sodium 75 mg 1 tab(s) orally 2 times a day Not-Taking VALSARTAN 80 mg 1 tab(s) orally once a day Not-Taking CLOPIDOGREL 75 mg 1 tab(s) orally once a day 4 Not-Taking ASPIRIN 81 mg 1 tab(s) orally once a day Not-Taking BREZTRI AEROSPHERE 160 mcg-4.8 mcg-9 mcg/inh 2 puff(s) inhaled 2 times a day Not-Taking PREDNISONE 20 mg 3 tab(s) orally once a day; Duration: 4 days to start tomorrow, 10/25/23 4 Not-Taking Immunizations Vaccine Route Administration Date Status Comme nts NOC Prevnar 13 Unknown 06/18/2021 Administered Portal I nformation Social History Tobacco Use: Social History Observation Description Date Details (start date - stop date) Never Smoker NA - NA Sex Assigned At : Social History Observation Description Sex Assigned At Female Tobacco Control (Standard) Question Answer Notes Tobacco use: Nonsmoker Problems Problem Type SNOMED Code ICD Code Onset Dates Problem Status W/U Status Risk Notes Problem Shortness of breath (231616869) Shortness of breath (R06.02) Active confirmed Problem Wheezing (16858145) Wheezing (R06.2) Active confirmed Problem Vitamin D deficiency (62812463) Vitamin D deficiency, unspecified (E55.9) Active confirmed Problem Essential hypertension (37405401) Essential (primary) hypertension (I10) Active confirmed Problem Allergic rhinitis (04966181) Other allergic rhinitis (J30.89) Active confirmed Problem Chronic rhinitis (50779259) Chronic rhinitis (J31.0) Active confirmed Problem Uncomplicated severe persistent asthma (579957563) Severe persistent asthma, uncomplicated (J45.50) Active confirmed Problem History of systemic steroid therapy (003177791487859) Personal history of systemic steroid therapy (Z92.241) Active confirmed Problem Dysphagia (58183471) Dysphagia, unspecified (R13.10) Active confirmed Problem Eosinophilic asthma (350187351) 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) Active confirmed Vital Signs Respiratory Rate 17 /min 12/04/2024 Oximetry 98 % 03/26/2025 Blood pressure diastolic 78 mm Hg 03/26/2025 Height 61 in 03/26/2025 Blood pressure systolic 162 mm Hg 03/26/2025 Weight 228.8 lbs 03/26/2025 BMI 43.23 kg/m2 03/26/2025 Encounters Encounter Location Date Provider Diagnosis [address] [address] 06/05/2024 Apple Astudillo Severe persistent asthma, uncomplicated J45.50 ; Eosinophilic asthma J82.83 ; Personal history of systemic steroid therapy Z92.241 ; Wheezing R06.2 ; Hypertrophy of nasal turbinates J34.3 ; Chronic rhinitis J31.0 ; Vitamin D deficiency, unspecified E55.9 and Essential (primary) hypertension I10 [facility] [address] [place] [phone] 08/07/2024 Apple Astudillo Severe persistent asthma, uncomplicated J45.50 ; Eosinophilic asthma J82.83 ; Personal history of systemic steroid therapy Z92.241 ; Wheezing R06.2 ; Hypertrophy of nasal turbinates J34.3 ; Chronic rhinitis J31.0 ; Vitamin D deficiency, unspecified E55.9 and Essential (primary) hypertension I10 [facility] [address] [place] [phone] 10/09/2024 Eloy Fuchs Severe persistent asthma, uncomplicated J45.[address] [address] 12/04/2024 Eloy Fuchs Severe persistent asthma, uncomplicated J45.[address] [address] 01/29/2025 Apple Astudillo Severe persistent asthma, uncomplicated J45.50 ; Eosinophilic asthma J82.83 ; Personal history of systemic steroid therapy Z92.241 ; Wheezing R06.2 ; Hypertrophy of nasal turbinates J34.3 ; Chronic rhinitis J31.0 ; Vitamin D deficiency, unspecified E55.9 ; Dysphagia, unspecified R13.10 and Essential (primary) hypertension I10 [address] [address] 03/26/2025 Apple Astudillo Severe persistent asthma, uncomplicated J45.50 ; Eosinophilic asthma J82.83 ; Personal history of systemic steroid therapy Z92.241 ; Wheezing R06.2 ; Hypertrophy of nasal turbinates J34.3 ; Chronic rhinitis J31.0 ; Vitamin D deficiency, unspecified E55.9 ; Dysphagia, unspecified R13.10 and Essential (primary) hypertension I10 [facility] [address] [facility] [address] [place] [address] 07/15/2024 Apple Astudillo Other allergic rhinitis J30.89 and Vitamin D deficiency, unspecified E55.[address] [address] 07/17/2024 Apple Astudillo Vitamin D deficiency , unspecified E55.[address] [address] 01/30/2025 Apple Astudillo Assessments Encounter Date Diagnosis (ICD Code) Assessment Notes Treatment Notes Treatment Clinical Notes Section Notes 06/05/2024 Eosinophilic asthma (ICD-10 - J82.83) The [...] Previous lab drawn in setting of OCS. 07/17/2024 Vitamin D deficiency, unspecified (ICD-10 - [...] to brush teeth after inhalation. - Pre-treatment AYA=2251. Last CBC showed AEC=0 - PFTs from [...] adverse effect. - Completed Shingles vaccine series. 10/09/2024 Severe persistent asthma, uncomplicated (ICD-10 - J45.50) 12/04/2024 Severe persistent asthma, uncomplicated (ICD-10 - J45.50) 08/07/2024 Severe persistent asthma, uncomplicated (ICD-10 - [...] inhalation. Refills sent for SIngulair. - Pre-treatment NQV=7587. Last CBC showed AEC=0 - PFTs from [...] in 8 weeks for FASENRA dosing, E&M 01/29/2025 Eosinophilic asthma (ICD-10 - J82.83) The patient [...] adverse effect. - Completed Shingles vaccine series. 01/29/2025 Severe persistent asthma, uncomplicated (ICD-10 - J45.50) Jenae returns today to continue treatment with FASENRA, approved for several eosinophilic asthma. Treatment was initiated in December 2023. Previously OCS dependent asthmatic maximized on high dose. She has had a great clinical improvement on her biologic therapy and has required no OCS. Prior vist in 03/2024, ACT=13 as she was not c/w meds. Today, ACT 12 though attributes to recent loss of son. SHe denies lower airway symptoms, interval JENNA use. She was off Treelgy for sometime though due to difficulty swallowing, see below. PCP started Breztri so she recently restarted. She also stopped taking montelukast. ACT 15. -Jenae is an ideal candidate for Fasenra given her steroid requirement, low ACT, and maximized treatment regiment. Dosing today continued and she will continue Q8 week dosing. Will monitor lower airway symptoms. Last OCS in 10/2023. If she continues to have symptoms consider a change in biologic HOWEVER her compliancy to taking daily meds has been an issue. Presents today with recent passing of son reporting difficulty breathing, likely related to crying, grief and panic. - Continue medications. Recommend restarting Breztri BID and Singulair at night. Continue to brush teeth after inhalation. - Pre-treatment CUD=2555. Last CBC showed AEC=0 - PFTs from [...] on end-exhalation. Normal lung age. - Continue Breztri at this time. Encouraged Jenae she must remain on a controller inhaler. Instructed to brush teeth after inhalation. Watch for compliancy as this continues to be an issue. - Continue JENNA per AAP. Again, instructed [...] RSV vaccines. Patient is considering. Completed Shingles series. - Consider additional imaging but clinically stable on current regimen; will clint monitor given her history of PE/DVT - Follow-up in 8 weeks for FASENRA dosing, E&M, repeat spirometry 03/26/2025 Severe persistent asthma, uncomplicated (ICD-10 - J45.50) Jenae returns today to continue treatment with FASENRA, approved for several eosinophilic asthma. Treatment was initiated in December 2023. Previously OCS dependent asthmatic maximized on high dose. She has had a great clinical improvement on her biologic therapy and has required no OCS. Prior vist in 03/2024, ACT=13 as she was not c/w meds. Last visit, ACT 12 though attributes to recent loss of son. She denies lower airway symptoms, interval JENNA use. She does report increased congestion past 3-4 days. ACT 18 today, increased from 12. -Jenae is an ideal candidate for Fasenra given her steroid requirement, low ACT, and maximized treatment regiment. Dosing today continued and she will continue Q8 week dosing. Will monitor lower airway symptoms. Last OCS in 10/2023. If she continues to have symptoms consider a change in biologic HOWEVER her compliancy to taking daily meds has been an issue. Presents today improved from last visit, though ACT 18 due to increased sinus congestion the past 3-4 days. No interval JENNA use. - Continue medications. Recommend continuing Breztri BID and Singulair at night. Continue to brush teeth after inhalation. Refills for Breztri sent. - Pre-treatment MCL=5329. Last CBC showed AEC=0 - PFTs from previously reviewed. Conclusion read Although there is airway obstruction and a diffusion defect suggesting emphysema, the absenece of overinflation is inconsistent with that diagnosis. The MVV is reduced more than FEV1 suggeting poor effort or concurrent neuromuscular disease. Discussed with Dr. Phillips and she agreed with biologic initiation with Yasmin. At this point Dr. Phillips will see [...] on end-exhalation. Normal lung age. - Continue Breztri at this time. Encouraged Jenae she must remain on a controller inhaler. Instructed to brush teeth after inhalation. Watch for compliancy as this continues to be an issue. Refills sent. - Continue JENNA per AAP. Again, instructed [...] Recommend full PFTs with pulmonology in 2024. Discussed today, will discuss again at follow-up. - Alpha-1 antitrypsin=MM - Closely follow frequency of infections, will order PI workup given long-term steroid use. Pneumococcal vaccine received in the last year - needs to bring in date. Recommend annual flu shot, COVID booster, and RSV vaccines. Discussed today. Completed Shingles series. - Consider additional imaging but clinically stable on current regimen; will clint monitor given her history of PE/DVT - Follow-up in 8 weeks for FASENRA dosing, E&M, repeat spirometry 03/26/2025 Eosinophilic asthma (ICD-10 - J82.83) The patient [...] adverse effect. - Completed Shingles vaccine series. 03/26/2025 Personal history of systemic steroid therapy (ICD-10 - Z92.241) At one time Jenae was nearly steroid dependent. She has required steroids intermittently for years. - Recommend DEXA can with PCP. 01/29/2025 Personal history of systemic steroid therapy (ICD-10 - Z92.241) At one time Jenae was nearly steroid dependent. She has required steroids intermittently for years. - Recommend DEXA can with PCP. 08/07/2024 Personal history of systemic steroid therapy [...] will check Vitamin D at this time. 08/07/2024 Wheezing (ICD-10 - R06.2) Clear on exam today 06/05/2024 Wheezing (ICD-10 - R06.2) Clear on exam today 01/29/2025 Wheezing (ICD-10 - R06.2) Clear on exam today 03/26/2025 Wheezing (ICD-10 - R06.2) Clear on exam today 08/07/2024 Hypertrophy of nasal turbinates (ICD-10 - J34.3) ImmunoCaps negative to all aeroallergens, total IgE 25. Repeat ImmunoCaps off steroids for several months negative to all aeroallergens with toal IgE 15. Consider aeroallergen skin testing based off results. Doing well on Astelin QD-BID. 06/05/2024 Hypertrophy of nasal turbinates (ICD-10 - J34.3) ImmunoCaps negative to all aeroallergens, total IgE 25. Will obtain repeat ImmunoCaps now as she has been off steroids for several months. Consider aeroallergen skin testing based off results. Doing well on Astelin QD-BID. 01/29/2025 Hypertrophy of nasal turbinates (ICD-10 - J34.3) ImmunoCaps negative to all aeroallergens, total IgE 25. Repeat ImmunoCaps off steroids for several months negative to all aeroallergens with toal IgE 15. Consider aeroallergen skin testing based off results. Doing well on Astelin QD-BID. 03/26/2025 Hypertrophy of nasal turbinates (ICD-10 - J34.3) ImmunoCaps negative to all aeroallergens, total IgE 25. Repeat ImmunoCaps off steroids for several months negative to all aeroallergens with toal IgE 15. Consider aeroallergen skin testing based off results. Doing well on Astelin QD-BID. 03/26/2025 Chronic rhinitis (ICD-10 - J31.0) As stated above. 06/05/2024 Chronic rhinitis (ICD-10 - J31.0) As stated above. 08/07/2024 Chronic rhinitis (ICD-10 - J31.0) As stated above. 01/29/2025 Chronic rhinitis (ICD-10 - J31.0) As stated above. 03/26/2025 Vitamin D deficiency, unspecified (ICD-10 - E55.9) Vitamin D level 12.1. Recommended 10,000IU daily x 3 months which Jenae continues at this time. - Repeat VItamin D WNL at 56.8. Recommend continuing 5,000IU daily .Will recheck in 1 month with Modified PIDD workup. 01/29/2025 Vitamin D deficiency, unspecified (ICD-10 - E55.9) Vitamin D level 12.1. Recommended 10,000IU daily x 3 months which Jenae continues at this time. - Plan to recheck now. Per note from PCP, will add CBC and CMP to order. Labs ordered. 06/05/2024 Vitamin D deficiency, unspecified (ICD-10 - E55.9) R/O as stated above. 08/07/2024 Vitamin D deficiency, unspecified [...] Continue serial checks and follow-up with PCP 01/29/2025 Dysphagia, unspecified (ICD-10 - R13.10) Jenae returns today reporting difficulty swallowing and coughing when swallowing coffee and water. She reports something thick in back of throat. PCP concerned for thyromegaly, she is slated for US thyroid and neck on Sunday. These symptoms have been ongoing since 09/2024. At that time, she thought it was related to Trelegy so stopped taking but symptoms persisted. PCP also recommending trial of pantoprazole, which she plans to start tomorrow. - Records reviewed from [facility]. I am in agreement with her plan. - Continue follow-up and recs per PCP. 03/26/2025 Dysphagia, unspecified (ICD-10 - R13.10) Jenae returns today reporting difficulty swallowing and coughing when swallowing coffee and water. She reports something thick in back of throat. PCP concerned for thyromegaly, underwent US thyroid and neck. These symptoms have been ongoing since 09/2024. At that time, she thought it was related to Trelegy so stopped taking but symptoms persisted. PCP also recommending trial of pantoprazole. - Reported enlarged lymph node on US - PCP monitoring. - Continue follow-up and recs per PCP. 01/29/2025 Essential (primary) hypertension (ICD-10 - I10) BP elevated today without symptoms of urgency or emergency. Continue serial checks and follow-up with PCP 03/26/2025 Essential (primary) hypertension (ICD-10 - I10) BP elevated today without symptoms of urgency or emergency. Continue serial checks and follow-up with PCP 06/05/2024 Other 08/07/2024 Other 10/09/2024 Other 12/04/2024 Other 01/29/2025 Other 03/26/2025 Other Plan Of Treatment Pending Test Test Name Order Date -Immunoglobulins A/E/G/M, Serum 03/26/20 25 -Vitamin D, 25-Hydroxy 06/05/2024 -Vitamin D, 25-Hydroxy 03/26/2025 -Haemophilus influenzae B IgG 03/26/2025 -Tetanus/Diphtheria Ab 03/26/2025 -Respiratory Allergens w/Total IgE Area 8 06/05/2024 -Pneumococcal Ab (23 Serotype) Next Appt Details Provider Name:Apple aiken, 05/21/2025 10:30:00 AM, [address], [address], [place], [address], Insurance Providers Payer Name Payer Address Payer Phone Subscriber Number Group Number Insured Name Patient Relationship to Insured Coverage Start Date Coverage End Date [employer] (Medicare) Attention Claims [address] [place] [address] [id number] Bran Sage Self - patient is the insured 5 for Life [address] [place] [address] [id number] Shai Sage Jr. Spouse - patient is [...]
--- OUTSIDE RECORDS SUMMARY | 2025-05-12 13:32 | XMS_ITS | Clinical Summary ---
Author Organization [facility] Address [address] [place] [id number] Care Team Providers Care Commercial Pilot Name Role Phone Unavailable Primary Care Provider [...] 2001 Dexa Scan (General) 2016 COVID-19 Vaccine ( - 2024-2 6 season) 2025 Influenza Adult (#1) 2025 RSV Immunization or 60+ Years (1 - 1-dose 75+ series) 2026 Hepatitis A Vaccines Aged Out No long er eligible based on patient's age to complete this topic Meningococcal B Vaccine Aged Out No l onger eligible based on patient's age to complete this topic Meningococcal Vaccine Aged Out No chava fernando eligible based on patient's age to complete this topic RSV Immunizations Under 20 Months Aged Out No longer eligible based on patient's age to complete this topic
== END 2025-05-12 12:34 | disposition home or self-care (01) ==
PROVIDERS: PCP Family Medicine
DX: L03.114 Cellulitis of left upper limb (principal); I12.9 Hypertensive chronic kidney disease with stage 1 through stage 4 chronic kidney disease, or unspecified chronic kidney disease; E11.22 Type 2 diabetes mellitus with diabetic chronic kidney disease; N18.32 Chronic kidney disease, stage 3b; Z79.85 Long-term (current) use of injectable non-insulin antidiabetic drugs; E78.2 Mixed hyperlipidemia; E03.9 Hypothyroidism, unspecified; J82.83 Eosinophilic asthma; Z86.2 Personal history of diseases of the blood and blood-forming organs and certain disorders involving the immune mechanism; Z95.820 Peripheral vascular angioplasty status with implants and grafts; Z90.12 Acquired absence of left breast and nipple; Z90.711 Acquired absence of uterus with remaining cervical stump; Z79.01 Long term (current) use of anticoagulants
CPT/HCPCS: 99213; G0463

== ENCOUNTER 2025-05-21 10:59 | Outpatient (CLI) | payer MEDICARE, OTHER, SELFPAY ==
--- NOTE | ~2025-05-21 | XR_ITS ---
EXAMINATION: XR chest 2V, 05/21/2025 11:06 CENTER REP HISTORY: severe persistent asthma COMPARISON: No comparisons available. Technique: 2 views obtained. Findings: The lungs are clear, no effusion. No pneumothorax. Heart is normal size. Mediastinal and hilar contours are within normal limits. Bony thorax no acute abnormality. Impression: No acute cardiopulmonary abnormality. Reviewed, dictated and finalized at location P. ER REP Impression: No acute cardiopulmonary abnormality.
== END 2025-05-21 11:00 | disposition home or self-care (01) ==
PROVIDERS: Visit Provider Nurse Practitioner Family
DX: J45.50 Severe persistent asthma, uncomplicated (principal)
CPT/HCPCS: 71046